=== PATIENT | female | born 1960 | race Caucasian/White ===

== ENCOUNTER 2018-07-14 10:53 | Day surgery (SDC) | payer MEDICARE ==
[~2018-07-14 10:53] MED LIST: Acetaminophen TAB* 325 MG PO ONE; Buffered Lidocaine 0.9% SYRIN* 5 ML/SYR SYRINGE INTRADERM ONE
[2018-07-14] MEDS ORDERED: Acetaminophen TAB* 325 MG ONE (11:51)
[2018-07-14] MEDS ORDERED: Buffered Lidocaine 0.9% SYRIN* 5 ML/SYR SYRINGE ONE (11:51)
[2018-07-14] MEDS ORDERED: Midazolam* 1 MG/ML 2 ML VIAL (2 MG) ONE ×2 (12:16→13:49)
[2018-07-14] MEDS ORDERED: fentaNYL* 50 MCG/ML 2 ML VIAL (100 MCG VIAL) ONE (12:16)
[2018-07-14] MEDS ORDERED: Famotidine IV* 10 MG/ML 2 ML (20 mg) ONE (12:29)
[2018-07-14] MEDS ORDERED: Levalbuterol 0.63MG/3ML NEB* UNIT OF USE INH ONE ×3 (13:03→16:11)
[2018-07-14] MEDS ORDERED: fentaNYL* 50 MCG/ML 2 ML VIAL (100 MCG VIAL) IV PRN (13:06)
[2018-07-14] MEDS ORDERED: DiMENhydriNATE IV* 50 MG/ML VIAL IV PUSH PRN (13:06)
[2018-07-14] MEDS ORDERED: Levalbuterol 0.63MG/3ML NEB* UNIT OF USE INH PRN (13:06)
[2018-07-14] MEDS ORDERED: Ondansetron INJ* 2 MG/ML VIAL IV PRN (13:06)
[2018-07-14] MEDS ORDERED: Naloxone* 0.4 MG/ML 1 ML VIAL IV PRN (13:06)
[2018-07-14] MEDS ORDERED: Propofol* 10 MG/ML 20 ML BTL ONE ×2 (13:37→13:50)
[2018-07-14] MEDS ORDERED: Cisatracurium* 2 MG/ML MDV 5 ML ONE (13:37)
[2018-07-14] MEDS ORDERED: Dexamethasone IV* 4 MG/ML 1 ML (4 MG) ONE (13:37)
[2018-07-14] MEDS ORDERED: Succinylcholine* 20 MG/ML 10 ML VIAL ONE (13:51)
[2018-07-14] MEDS ORDERED: Esmolol* 10 MG/ML 10 ML (100 mg) ONE (13:51)
[2018-07-14] MEDS ORDERED: Levalbuterol HFA INHALER* 1 PUFF MDI ONE (14:59)
[2018-07-14 16:18] VITALS: BP 150/75
--- NOTE | 2018-07-15 06:01 | PRO ---
BRONCHOSCOPY REPORT: DATE OF PROCEDURE: 07/14/18 - [facility] PROCEDURE PERFORMED: Bronchoscopy with endobronchial ultrasound-guided fine needle aspiration of mediastinal and hilar nodes for lung cancer staging. PREPROCEDURAL DIAGNOSIS: Lung cancer. POSTPROCEDURAL DIAGNOSIS: Lung cancer with negative tumor in lymph nodes. ANESTHESIA: General anesthesia. ANESTHESIOLOGIST: Dr. Lopez. PROCEDURE IN DETAIL: Informed consent was obtained from the patient prior to the procedure after all the risks and benefits were thoroughly explained. The patient was intubated with a size 8.5 endotracheal tube prior to the procedure. A flexible Olympus bronchoscope was inserted through the ET tube for airway inspection. All airways were patent. Thick secretions were noted and were suctioned. No endobronchial lesions were noted. Bronchoscope was then withdrawn and EBUS bronchoscope was inserted. L10 was sampled with 3 passes. Rapid onsite evaluation revealed lymphatic tissue. No malignant cells were noted. L4 was then accessed with 2 passes. Rapid onsite evaluation revealed lymphatic tissue with no malignant cells. Station 7 was then accessed with 3 passes. Rapid onsite evaluation revealed lymphatic tissue with no malignant cells. R4 was then accessed with 2 passes. Rapid onsite evaluation revealed lymphatic tissue with no malignant cells. R10 was then accessed with 1 pass. Rapid onsite evaluation revealed lymphatic tissue. No malignant cells were noted. Bronchoscope was then withdrawn and Olympus bronchoscope was reinserted and secretions were suctioned. Minimal bleeding was seen and was suctioned out. The patient tolerated the procedure well. The patient was extubated and seen in Recovery in optimal condition. [id number]/CPS #: [id number] MTDD
== END 2018-07-14 16:30 | disposition home or self-care (01) ==
LOC: OR 10:53
PROVIDERS: ATTEND Internal Medicine
DX: C34.90 Malignant neoplasm of unspecified part of unspecified bronchus or lung (principal); R91.1 Solitary pulmonary nodule; J44.9 Chronic obstructive pulmonary disease, unspecified; F17.210 Nicotine dependence, cigarettes, uncomplicated; R06.83 Snoring; F41.8 Other specified anxiety disorders; I73.9 Peripheral vascular disease, unspecified
CPT/HCPCS: 88172; 88173; 88177; 88305; A9270-GY; J0330; J1100; J2250; J2704; J3010

== ENCOUNTER → 2018-07-15 11:03 | Day surgery (SDC) | payer MEDICARE ==
[~2018-07-15 11:03] MED LIST changes: -Acetaminophen TAB* 325 MG PO ONE; -Buffered Lidocaine 0.9% SYRIN* 5 ML/SYR SYRINGE INTRADERM ONE; +Clopidogrel TAB* 300 MG ONE; +Flumazenil* 0.1 MG/ML 5 ML MDV ONE; +Heparin 2 UNITS/ML IVPREMIX* 1,000 ML IV ONE; +Heparin 2 UNITS/ML IVPREMIX* 2,000 ML IV ONE; +Heparin(*) 1000 UNIT/ML 10 ML VIAL CATH LAB IV ONE; +Iodixanol 320 (CONTRAST) 100 ML SDV ONE; +Iohexol 350 (CONTRAST) 200 ML MDV IV ONE; +LORazepam TAB(*) 1 MG ONE; +Lidocaine 1% INJ* 10 MG/ML 30 ML SDV ONE; +Midazolam* 1 MG/ML 10 ML VIAL (10 MG) ONE; +Naloxone* 0.4 MG/ML 1 ML VIAL ONE; +Ondansetron INJ* 2 MG/ML VIAL ONE; +VERAPAMIL 2.5 MG/ML 2 ML VIAL ** 5 mg/2 ml ONE; +fentaNYL* 50 MCG/ML 2 ML VIAL (100 MCG VIAL) ONE; +fentaNYL* 50 MCG/ML 5 ML VIAL (250 MCG VIAL) ONE; +nitroGLYCERIN DRIP* 25,000 MCG/250 ML BTL ONE
[2018-07-15 11:51] LABS: ABS Basophils 0.1 10^3/ul (0-0.2); ABS Eosinophils 0 10^3/ul (0-0.6); ABS Lymphocytes 0.8 10^3/ul (1.0-4.8); ABS Monocytes 1.3 10^3/ul (0-0.8); ABS Neutrophils 19.9 10^3/ul (1.5-7.7); ABS Nucleated RBC 0 10^3/ul; Eosinophil % 0.1 %; Hematocrit 43 % (35-47); Hemoglobin 14.4 g/dl (12.0-16.0); Lymphocyte % 3.7 %; Mean Corpuscular HGB Conc 33 g/dl (31-36); Mean Corpuscular Hemoglobin 32 pg (27-31); Mean Corpuscular Volume 95 fL (80-97); Mean Platelet Volume 7.5 fL (7.4-10.4); Nucleated Red Blood Cells % 0.1; Platelet Count 229 10^3/ul (150-450); Red Blood Count 4.53 10^6/ul (4.00-5.40); Red Cell Distribution Width 14 % (10.5-15); White Blood Count 22.1 10^3/ul (3.5-10.8)
[2018-07-15 12:02] LABS: INR 0.95 (0.77-1.02)
[2018-07-15 12:16] LABS: EGFR Non-African American 84.6 (>60)
[2018-07-15 18:31] VITALS: BP 141/75
--- NOTE | 2018-07-15 18:50 | PN ---
Progress Note - Progress Note Date of Service: 07/15/18 SOAP: Subjective: No pain. No nausea. 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 Percutaneous Minx closure device successfully deployed at left CF arteriotomy. Plan: 1. Plavix 75 mg PO daily x 6 months. 2. Standard Interventional Radiology follow up will include RN call Thursday, 07/19 and clinic f/u in 1 month with KELLIE.
== END | disposition home or self-care (01) ==
LOC: CHICATH 11:03
PROVIDERS: ATTEND Radiology Diagnostic Radiology
DX: I70.223 Atherosclerosis of native arteries of extremities with rest pain, bilateral legs (principal); I70.261 Atherosclerosis of native arteries of extremities with gangrene, right leg; I70.213 Atherosclerosis of native arteries of extremities with intermittent claudication, bilateral legs; I10 Essential (primary) hypertension; F41.8 Other specified anxiety disorders; Z72.0 Tobacco use; Z79.899 Other long term (current) drug therapy
CPT/HCPCS: 36415; 75736; 76937; 80048; 85025; 85347; 85610; 85730; 99156; 99157; A9270-GY; C1724; C1725; C1760; C1769; C1887; C1894; J1644; J2250; J2310; J2405; J3010

== ENCOUNTER → 2018-11-25 13:54 | Emergency (ER) | payer MEDICARE ==
--- NOTE | 2018-11-25 16:07 | ED ---
Lower Extremity - HPI Summary HPI Summary: Patient is a 57-year-old female who presents emergency department for evaluation of chronic wound to right great toe. Patient states last year she developed osteomyelitis in the right foot and was following with Dr. Kahn for infectious disease. Patient states she is now currently seeing the wound clinic and saw Dr. Dia a few days ago. Patient states she recently finished a course of clindamycin. Patient states she noticed increase drainage from wound and was referred to the ER by Dr. Dia. Patient denies associated symptoms of fever, chills, increased pain to right foot, increased redness. Past medical history of hypertension, GERD, pulmonary nodule, smoking history. Symptoms are [id number] in severity. No current modifying factors. - History of Current Complaint Chief Complaint: EDRashSkinAbscess Stated Complaint: RIGHT FOOT TOE INJURY PER PT Time Seen by Provider: 11/25/18 15:36 Hx Obtained From: Patient Pain Intensity: 5 - Allergies/Home Medications Allergies/Adverse Reactions: Allergies Allergy/AdvReac Type Severity Reaction Status Date / Time doxycycline AdvReac Intermediate GI Upset Verified 11/25/18 14:29 tetracycline AdvReac Intermediate GI Upset Verified 11/25/18 14:29 PMH/Surg Hx/FS Hx/Imm Hx Previously Healthy: Yes Endocrine/Hematology History: Denies: Hx Diabetes Cardiovascular History: Reports: Hx Hypertension - ON MEDICATION FOR, Hx Peripheral Vascular Disease - right leg Denies: Hx Pacemaker/ICD Respiratory History: Reports: Hx Sleep Apnea - newly diagnosed, Other Respiratory Problems/Disorders - very hoarse Denies: Hx Asthma GI History: Reports: Hx Gastroesophageal Reflux Disease, Hx Irritable Bowel Denies: Other GI Disorders History: Denies: Hx Renal Disease Musculoskeletal History: Reports: Hx Arthritis - hands, Hx Bursitis, Hx Tendonitis - arms, Other Musculoskeletal History - RIGHT FOOT DROP FOOT after back surgery Sensory History: Reports: Hx Contacts or Glasses - glasses Denies: Hx Hearing Aid Opthamlomology History: Reports: Hx Contacts or Glasses - glasses Neurological History: Reports: Other Neuro Impairments/Disorders - right foot drop Psychiatric History: Reports: Hx Anxiety - on meds, Hx Depression - ON MEDICATION, Hx Panic Disorder - Cancer History Cancer Type, Location and Year: Lung ca - Surgical History Surgery Procedure, Year, and Place[facility] TUBAL [facility]. TONSILLECTOMY. LEFT KNEE ARTHROSCOPY X 2. GALLBLADER REMOVED. RIGHT FOOT REMOVAL OF PLANTAR WART. RIGHT TOE STRAIGHTENED Hx Anesthesia Reactions: No Infectious Disease History: No Infectious Disease History: Denies: Traveled Outside the [place] in Last 30 Days - Family History Known Family History: Positive: Non-Contributory - Social History Occupation: Unemployed Lives: With Family Alcohol Use: None Substance Use Type: Reports: None Hx Tobacco Use: Yes Smoking Status (MU): Heavy Every Day Tobacco Smoker Type: Cigarettes Amount Used/How Often: pack a day for 49yrs Have You Smoked in the Last Year: Yes Review of Systems Constitutional: Negative Negative: Fever, Chills Gastrointestinal: Negative Negative: Abdominal Pain, Nausea Positive: Other - chronic wound to right foot All Other Systems Reviewed And Are Negative: Yes Physical Exam Triage Information Reviewed: Yes Vital Signs On Initial Exam: Initial Vitals Temp Pulse Resp BP Pulse Ox 97.8 F 73 14 130/72 95 11/25/18 14:17 11/25/18 14:17 11/25/18 14:17 11/25/18 14:17 11/25/18 14:17 Vital Signs Reviewed: Yes Appearance: Positive: Well-Appearing - Pt. sitting up in bed in NAD. present. Skin: Positive: Warm, Dry Head/Face: Positive: Normal Head/Face Inspection Eyes: Positive: Normal, EOMI Neck: Positive: Supple Musculoskeletal: Positive: Other - Small, <1cm, ulceration noted to the medial aspect of right great toe of foot. No drainage. No surrounding erythema, edema, pain. Neurological: Positive: Normal, CN Intact II-III Psychiatric: Positive: Affect/Mood Appropriate Diagnostics - Vital Signs Vital Signs Temp Pulse Resp BP Pulse Ox 11/25/18 14:17 97.8 F 73 14 130/72 95 - Laboratory Result Diagrams: 11/25/18 16:10 11/25/18 16:10 Lab Statement: Any lab studies that have been ordered have been reviewed, and results considered in the medical decision making process. Lower Extremity Course/Dx - Course Course Of Treatment: Patient presenting for evaluation of chronic wound to right foot. Patient noticed a small increase in drainage. She is afebrile. On exam no definite signs of an infection. Labs and x-ray obtained. X-ray shows chronic changes without acute findings, reading per radiology. Blood work shows elevated WBC of 14,000 and CRP of 34. Wound culture obtained by wound clinic this week and is negative for close. Case discussed with Dr. Kahn who recommends outpatient follow-up at his office. He does not recommend antibiotics or not wound does not appear infected. Patient is agreeable with this plan. Advised to continue wound care. To call Dr. Kahn' s office tomorrow for a close follow-up appointment. Return to the ER symptoms change or worsen. - Diagnoses Differential Diagnosis/HQI/PQRI: Positive: Gout, Infection, Osteomyelitis Provider Diagnoses: Ulcer Discharge - Sign-Out/Discharge Documenting (check all that apply): Patient Departure Patient Received Moderate/Deep Sedation with Procedure: No - Discharge Plan Condition: Good Disposition: HOME Patient Education Materials: Acute Wound Care (ED) Referrals: Milton Cagle MD [Primary Care Provider] - Alden HUSTON,Emory Henry [Medical Doctor] - Additional Instructions: Call Dr. Ruano's office tomorrow for a close follow up appointment Continue wound care Return to ER for increased pain, fever, drainage, surrounding redness, or if concerned - Billing Disposition and Condition Condition: GOOD Disposition: Home
[2018-11-25 16:20] LABS: ABS Basophils 0 10^3/ul (0-0.2); ABS Eosinophils 0.2 10^3/ul (0-0.6); ABS Lymphocytes 0.9 10^3/ul (1.0-4.8); ABS Monocytes 0.7 10^3/ul (0-0.8); ABS Neutrophils 12.1 10^3/ul (1.5-7.7); ABS Nucleated RBC 0 10^3/ul; Eosinophil % 1.8 %; Hematocrit 42 % (33-41); Hemoglobin 14.1 g/dL (12.0-16.0); Lymphocyte % 6.5 %; Mean Corpuscular HGB Conc 33 g/dL (31-36); Mean Corpuscular Hemoglobin 32 pg (27-31); Mean Corpuscular Volume 97 fL (80-97); Mean Platelet Volume 8.1 fL (7.4-10.4); Nucleated Red Blood Cells % 0.1; Platelet Count 233 10^3/uL (150-450); Red Blood Count 4.36 10^6 /uL (3.70-4.87); Red Cell Distribution Width 15 % (10.5-15)
[2018-11-25 16:27] LABS: Albumin 3.7 g/dL (3.2-5.2); Calcium 9.9 mg/dL (8.6-10.3); Potassium 4.3 mmol/L (3.5-5.0); Total Bilirubin 0.3 mg/dL (0.2-1.0)
[2018-11-25 16:33] LABS: Albumin/Globulin Ratio 1.1 (1-3); BUN/Creatinine Ratio 16.9 (8-20); C Reactive Protein 34.35 mg/L (<8.01); EGFR African American 102.3 (>60); EGFR Non-African American 84.6 (>60); Globulin 3.4 g/dL (2-4); Total Protein 7.1 g/dL (6.4-8.9)
[2018-11-25 17:15] VITALS: BP 124/74
== END | disposition home or self-care (01) ==
LOC: ED 13:54
DX: L97.516 Non-pressure chronic ulcer of other part of right foot with bone involvement without evidence of necrosis (principal); I10 Essential (primary) hypertension; K21.9 Gastro-esophageal reflux disease without esophagitis; F17.210 Nicotine dependence, cigarettes, uncomplicated
CPT/HCPCS: 36415; 80053; 83605; 85025; 86140; 87040; 99282

== ENCOUNTER 2019-01-30 15:35 | Inpatient (IN) | payer MEDICARE ==
--- OUTSIDE RECORDS SUMMARY | 2019-01-30 15:53 | XMS REPORT | Continuity of Care Document ---
:1960 External Reference #:[id number] Author Name Jossie Bliss Care Team Providers Name Role Phone Milton Cagle MD Primary Care Physician Unavailable Payers Date Identification Numbers Payment Provider Subscriber Policy Number: [id number] Medicare Mayda Almendarez PayID: [id number] [facility] [address] [place] [address] Problems Active Problems Provider Date Atherosclerosis of arteries of the Alcides Ponce M.D. Onset: 05/06/2018 extremities Intermittent claudication due to Alcides Ponce M.D. Onset: 05/06/2018 atherosclerosis of [place] artery of limb Family History Date Family Member(s) Observation Comments General Diabetes General Hypertension General Cancer Father due to Complications from a () fall Father Diabetes Father Hypertension Mother due to Aspiration () Mother Hypertension Mother Chronic Obstructive Pulmonary Disease (COPD) Mother Smoker Siblings 6 3 brothers and 3 sisters Social History Type Date Description Comments Sex Unknown Marital Status Lives With Occupation Disabled Tobacco Use Start: Unknown current cigarette Began smoking at smoker age 8 Smoking Status Reviewed: 01/27/19 current cigarette Began smoking at smoker age 8 ETOH Use Denies alcohol use Tobacco Use Start: Unknown Patient is a current 1 ppd x 49 yrs smoker, smokes every day Recreational Drug Use Current Drug User Recreational Drug Use Regularly uses Marijuana Exercise Type/Frequency Exercises rarely Allergies, Adverse Reactions, Alerts Active Allergies Reaction Severity Comments Date Tetracycline abdominal pain 05/14/2016 Doxycycline abdominal pain 05/07/2018 Medications Active Medications SIG Qnty Indications Ordering Provider Date Rifampin Take 2 tablets 60caps Mattie Adameck 01/27/2019 300mg by mouth once Reyna, MANAGER INPATIENT Capsules daily Sulfamethoxazole/Tri Take 1 tablet by 30tabs L97.512 Mattie Michael methoprim DS mouth once a day DIVINE Reyna 800-160mg Tablets Gabapentin 1 by mouth two Alcides Ponce, 05/06/2018 300mg times a day M.D. Capsules Ranitidine HCL take one tablet Unknown 150mg by mouth twice a Tablets day Fluoxetine HCL 3 by mouth every Unknown 20mg day Capsules Olanzapine 1 by mouth every Unknown 10mg day Tablets Aspirin Adult Low 1 by mouth every Unknown Dose day 81mg Tablets DR Mayer as needed Unknown 1mg Oxycodone HCL ER take one tab by Unknown 10mg mouth three Tab ER 12H Abuse-Det times a day Lisinopril 1 by mouth every Unknown 10mg day Tablets Protonix 1 tab by mouth Unknown 40mg Packet every day. [place] Carbonate ER 1 tabs once Unknown every other day 300mg Tablets ER (weaning off per Dr Trejo) History Medications Sulfamethoxazole/Trimethoprim DS take 1 14tabs L97.512 Emory Henry 2018 - 800-160mg tablet by Karol, 12/15/2018 Tablets mouth once M.D. a day Sulfamethoxazole/Trimethoprim DS Take 1 10tabs Alcides Blanton 07/28/2018 - 800-160mg tablet by Oliver Ponce 11/29/2018 Tablets mouth bid for 5 days. Plavix 75mg 1 by mouth 90tabs Alcides Blanton 07/15/2018 - Tablets every day Oliver Ponce 01/26/2019 Nicoderm CQ topical 28units F17.210 Damari 06/15/2018 - 21mg/24HR Patches 24HR every MD Bhaskar 11/29/2018 morning Nicotine Polacrilex 1 by mouth 60units F17.210 Damari 06/15/2018 - 4mg Lozenges every 4 MD Bhaskar 11/29/2018 hours as needed Ceftriaxone Sodium iv every Emory DAlla 05/11/2018 - 1gm Solution Rec day x 42 Karol, 06/21/2018 days at [facility] [place] Clonidine HCL apply one Unknown - 0.1mg/24HR Patches Weekly patch once 03/05/2018 per week Effexor XR Unknown - 225 04/05/2018 Prazosin HCL twice daily Unknown - 2mg Capsules 07/06/2018 Gabapentin Unknown - 300mg/6ML Solution 04/05/2018 Detrol LA 4mg 1 by mouth Unknown - Caps ER 24HR every day 07/06/2018 Immunizations CPT Code Status Date Vaccine Lot # [id number] Given 05/26/2018 Influenza Virus Vaccine, Quadrivalent, Split, [id number] Preservative Free Vital Signs Date Vital Result Comment 01/27/2019 1:07pm Height 66 inches 5'6" Weight 204.00 lb Heart Rate 72 /min BP Systolic Sitting 110 mmHg BP Diastolic Sitting 64 mmHg Respiratory Rate 14 /min Body Temperature 97.4 F BMI (Body Mass Index) 32.9 kg/m2 01/25/2019 1:36pm Height 66 inches 5'6" Heart Rate 82 /min BP Systolic 124 mmHg BP Diastolic 70 mmHg Respiratory Rate 16 /min Body Temperature 98.3 F Pain Level 6 01/06/2019 3:26pm Height 66 inches 5'6" Weight 203.00 lb Heart Rate 92 /min BP Systolic Sitting 114 mmHg BP Diastolic Sitting 70 mmHg Respiratory Rate 14 /min Body Temperature 98.5 F Pain Level 7 BMI (Body Mass Index) 32.8 kg/m2 12/13/2018 2:04pm Height 66 inches 5'6" Weight 210.00 lb BP Systolic 128 mmHg BP Diastolic 92 mmHg Respiratory Rate 17 /min Body Temperature 97.1 F Pain Level 7 BMI (Body Mass Index) 33.9 kg/m2 11/30/2018 8:35am Height 66 inches 5'6" Weight 210.00 lb Heart Rate 84 /min BP Systolic Sitting 100 mmHg BP Diastolic Sitting 62 mmHg Respiratory Rate 14 /min Body Temperature 97.5 F BMI (Body Mass Index) 33.9 kg/m2 07/28/2018 10:26am Height 66 inches 5'6" Weight 218.00 lb Heart Rate 102 /min BP Systolic Sitting 126 mmHg BP Diastolic Sitting 84 mmHg Respiratory Rate 18 /min Body Temperature 97.9 F oral BMI (Body Mass Index) 35.2 kg/m2 07/07/2018 11:20am Height 66 inches 5'6" per pt Weight 221.00 lb Heart Rate 69 /min BP Systolic 122 mmHg BP Diastolic 58 mmHg Respiratory Rate 18 /min Pain Level 0 O2 % BldC Oximetry 97 % BMI (Body Mass Index) 35.7 kg/m2 07/01/2018 1:33pm Height 66 inches 5'6" per pt Weight 215.00 lb Heart Rate 92 /min BP Systolic Sitting 120 mmHg BP Diastolic Sitting 62 mmHg Respiratory Rate 14 /min Body Temperature 97.6 F BMI (Body Mass Index) 34.7 kg/m2 06/15/2018 9:35am Height 66 inches 5'6" per pt Weight 220.00 lb Heart Rate 88 /min BP Systolic Sitting 124 mmHg BP Diastolic Sitting 84 mmHg Respiratory Rate 14 /min O2 % BldC Oximetry 98 % BMI (Body Mass Index) 35.5 kg/m2 Neck Circumference in inches 16.25 06/09/2018 8:49am Height 66 inches 5'6" per pt Weight 222.00 lb Heart Rate 84 /min BP Systolic Sitting 118 mmHg BP Diastolic Sitting 64 mmHg Respiratory Rate 14 /min Body Temperature 96.9 F BMI (Body Mass Index) 35.8 kg/m2 05/26/2018 9:56am Height 66 inches 5'6" per pt Weight 218.12 lb Heart Rate 72 /min BP Systolic Sitting 120 mmHg BP Diastolic Sitting 64 mmHg Respiratory Rate 14 /min Body Temperature 98.2 F BMI (Body Mass Index) 35.2 kg/m2 05/07/2018 11:14am Height 66 inches 5'6" per pt Weight 213.38 lb Heart Rate 84 /min BP Systolic Sitting 128 mmHg BP Diastolic Sitting 62 mmHg Respiratory Rate 14 /min Body Temperature 97.9 F BMI (Body Mass Index) 34.4 kg/m2 05/06/2018 7:57am Height 62.5 inches 5'2.50" Weight 205.00 lb Heart Rate 74 /min BP Systolic Sitting 104 mmHg Lue BP Diastolic Sitting 60 mmHg Lue Respiratory Rate 16 /min BMI (Body Mass Index) 36.9 kg/m2 05/14/2016 1:13pm Height 62.5 inches 5'2.50" Weight 207.00 lb Heart Rate 60 /min BP Systolic 102 mmHg BP Diastolic 70 mmHg Pain Level 8 BMI (Body Mass Index) 37.3 kg/m2 Results Test Date Facility Test Result H/L Range Note Laboratory test 01/20/2019 [facility] C Reactive 17.62 mg/L High <8.[address] [place] [address] [phone] Comp Metabolic 01/20/2019 [facility] Sodium 135 mmol/L N 135- 145 Panel [address] [place] [address] [phone] Potassium 4.7 mmol/L N 3.5-5.0 Chloride 105 mmol/L N 101-111 Co2 Carbon Dioxide 25 mmol/L N 22-32 Anion Gap 5 mmol/L N 2-11 Glucose 94 mg/dL N 70-100 Blood Urea Nitrogen 23 mg/dL N 6-24 Creatinine 0.95 mg/dL N 0.51-0.95 BUN/Creatinine Ratio 24.2 High 8-20 Calcium 10.1 mg/dL N 8.6-10.3 Total Protein 7.2 g/dL N 6.4-8.9 Albumin 4.0 g/dL N 3.2-5.2 Globulin 3.2 g/dL N 2-4 Albumin/Globulin Ratio 1.3 N 1-3 Total Bilirubin 0.40 mg/dL N 0.2-1.0 Alkaline Phosphatase 87 U/L N 34-104 Alt 23 U/L N 7-52 Ast 17 U/L N 13-39 Egfr Non- 60.2 >60 Egfr 72.9 >60 1 Comp Metabolic Panel 12/17/2018 [facility] Sodium 134 mmol/L Low 135-145 [address] [place] [address] [phone] Chloride 102 mmol/L N 101-111 Co2 Carbon Dioxide 26 mmol/L N 22-32 Glucose 90 mg/dL N 70-100 Blood Urea Nitrogen 31 mg/dL High 6-24 Creatinine 1.27 mg/dL High 0.51-0.95 BUN/Creatinine Ratio 24.4 High 8-20 Calcium 10.9 mg/dL High 8.6-10.3 Total Protein 7.7 g/dL N 6.4-8.9 Albumin 4.2 g/dL N 3.2-5.2 Globulin 3.5 g/dL N 2-4 Albumin/Globulin Ratio 1.2 N 1-3 Total Bilirubin 0.30 mg/dL N 0.2-1.0 Alkaline Phosphatase 88 U/L N 34-104 Alt 20 U/L N 7-52 Ast 18 U/L N 13-39 Egfr Non- 43.2 >60 Egfr 52.3 >60 2 Potassium 5.2 mmol/L High 3.5-5.0 Anion Gap 6 mmol/L N 2-11 Laboratory test 12/17/2018 [facility] C Reactive 22.41 mg/L High <8.[address] [place] [address] [phone] Basic Metabolic 07/15/2018 [facility] Sodium 137 mmol/L N 135- [address] [place] [address] [phone] Potassium 4.1 mmol/L N 3.5-5.0 Chloride 106 mmol/L N 101-111 Co2 Carbon Dioxide 26 mmol/L N 22-32 Anion Gap 5 mmol/L N 2-11 Glucose 106 mg/dL High 70-100 Blood Urea Nitrogen 12 mg/dL N 6-24 Creatinine 0.71 mg/dL N 0.51-0.95 BUN/Creatinine Ratio 16.9 N 8-20 Calcium 9.7 mg/dL N 8.6-10.3 Egfr Non- 84.6 >60 Egfr 102.3 >60 3 CBC Auto 07/15/2018 [facility] White Blood 22.1 10^3/uL High 3.5-10.[address] [place] [address] [phone] Red Blood Count 4.53 10^6/uL N 4.00-5.40 Hemoglobin 14.4 g/dL N 12.0-16.0 Hematocrit 43 % N 35-47 Mean Corpuscular Volume 95 fL N 80-97 Mean Corpuscular Hemoglobin 32 pg High 27-31 Mean Corpuscular HGB Conc 33 g/dL N 31-36 Red Cell Distribution Width 14 % N 10.5-15 Platelet Count 229 10^3/uL N 150-450 Mean Platelet Volume 7.5 fL N 7.4-10.4 Abs Neutrophils 19.9 10^3/uL High 1.5-7.7 Abs Lymphocytes 0.8 10^3/uL Low 1.0-4.8 Abs Monocytes 1.3 10^3/uL High 0-0.8 Abs Eosinophils 0 10^3/uL N 0-0.6 Abs Basophils 0.1 10^3/uL N 0-0.2 Abs Nucleated RBC 0 10^3/uL Granulocyte % 90.2 % Lymphocyte % 3.7 % Monocyte % 5.8 % Eosinophil % 0.1 % Basophil % 0.2 % Nucleated Red Blood Cells % 0.1 Inr/Protime 07/15/2018 [facility] Inr 0.95 N 0.77-1.[address] [place] [address] [phone] Laboratory test 07/15/2018 [facility] Partial Thrombo 30.1 N 26.0-36.[address] [place] [address] [phone] Laboratory test 07/15/2018 [facility] Poc Activated 213 [address] [place] [address] [phone] Laboratory test 07/15/2018 [facility] Poc Activated 213 [address] [place] [address] [phone] Laboratory test 07/14/2018 [facility] Cytology Non-Waste Baler SEE RESULT [address] [place] [address] [phone] Laboratory test 06/28/2018 [facility] Cytology Non-Waste Baler SEE RESULT [address] [place] [address] [phone] Lung Cancer 06/28/2018 [facility] LNGPR TNP () 8 Targeted Gene [address] [place] [address] [phone] Laboratory test 06/28/2018 [facility] Cytology Non-Waste Baler SEE RESULT [address] [place] [address] [phone] Lung Cancer 06/28/2018 [facility] LNGPR TNP () 10 Targeted Gene [address] [place] [address] [phone] Laboratory test 06/28/2018 [facility] Cytology Non-Waste Baler SEE RESULT [address] [place] [address] [phone] Platelet Count 06/28/2018 [facility] Platelet Count 223 N 150- [address] 10^3/[place] [address] [phone] Mean Platelet Volume 7.3 fL Low 7.4-10.4 Inr/Protime 06/28/2018 [facility] Inr 0.89 N 0.77-1.[address] [place], [place] [address] [phone] Laboratory test 06/28/2018 [facility] Partial 31.0 seconds N 26.0-36.[address] [place] [address] PTT [phone] Basic Metabolic 06/24/2018 [facility] Sodium 140 mmol/L N 135- [address] [place] [address] [phone] Potassium 4.0 mmol/L N 3.5-5.0 Chloride 102 mmol/L N 101-111 Co2 Carbon Dioxide 30 mmol/L N 22-32 Anion Gap 8 mmol/L N 2-11 Glucose 96 mg/dL N 70-100 Blood Urea Nitrogen 10 mg/dL N 6-24 Creatinine 0.77 mg/dL N 0.51-0.95 BUN/Creatinine Ratio 13.0 N 8-20 Calcium 9.8 mg/dL N 8.6-10.3 Egfr Non- 77.0 >60 Egfr 93.2 >60 12 Laboratory test 06/21/2018 [facility] Cytology SEE RESULT [address] Non-Waste Baler BELOW [place], [place] [id number] [phone] Platelet Count 06/21/2018 [facility] Platelet Count 220 10^3/uL N 150-[address] 0 [place], [place] [id number] [phone] Mean Platelet Volume 7.8 fL N 7.4-10.4 Inr/Protime 06/21/2018 [facility] Inr 0.92 N 0.77-1.[address] [place], [place] [id number] [phone] Laboratory test 06/21/2018 [facility] Partial 32.5 N 26.0- 36.[address] [address] Time PTT [phone] CBC Auto Diff 06/15/2018 [facility] White Blood 15.0 High 3.5- 10.[address] Count 10^3/[place] [address] [phone] Red Blood Count 4.75 10^6/uL N 4.00-5.40 Hemoglobin 14.8 g/dL N 12.0-16.0 Hematocrit 45 % N 35-47 Mean Corpuscular Volume 95 fL N 80-97 Mean Corpuscular Hemoglobin 31 pg N 27-31 Mean Corpuscular HGB Conc 33 g/dL N 31-36 Red Cell Distribution Width 16 % High 10.5-15 Platelet Count 226 10^3/uL N 150-450 Mean Platelet Volume 7.6 um3 N 7.4-10.4 Abs Neutrophils 12.7 10^3/uL High 1.5-7.7 Abs Lymphocytes 1.0 10^3/uL N 1.0-4.8 Abs Monocytes 0.9 10^3/uL High 0-0.8 Abs Eosinophils 0.3 10^3/uL N 0-0.6 Abs Basophils 0.1 10^3/uL N 0-0.2 Abs Nucleated RBC 0 10^3/uL Granulocyte % 84.7 % High 38-83 Lymphocyte % 6.4 % Low 25-47 Monocyte % 6.3 % N 0-7 Eosinophil % 1.8 % N 0-6 Basophil % 0.8 % N 0-2 Nucleated Red Blood Cells % 0.1 Comp Metabolic Panel 06/15/2018 [facility] Sodium 137 mmol/L N 135-[address] [place] [address] [phone] Potassium 4.6 mmol/L N 3.5-5.0 Chloride 104 mmol/L N 101-111 Co2 Carbon Dioxide 29 mmol/L N 22-32 Anion Gap 4 mmol/L N 2-11 Glucose 90 mg/dL N 70-100 Blood Urea Nitrogen 9 mg/dL N 6-24 Creatinine 0.63 mg/dL N 0.51-0.95 BUN/Creatinine Ratio 14.3 N 8-20 Calcium 9.6 mg/dL N 8.6-10.3 Total Protein 7.5 g/dL N 6.4-8.9 Albumin 4.0 g/dL N 3.2-5.2 Globulin 3.5 g/dL N 2-4 Albumin/Globulin Ratio 1.1 N 1-3 Total Bilirubin 0.50 mg/dL N 0.2-1.0 Alkaline Phosphatase 104 U/L N 34-104 Alt 19 U/L N 7-52 Ast 22 U/L N 13-39 Egfr Non- 97.1 >60 Egfr 117.4 >60 14 Laboratory test 06/15/2018 [facility] C Reactive 15.00 mg/L High <8.[address] [place] [address] [phone] Laboratory test 06/14/2018 [facility] Point of Care 97 mg/dL N 70-[address] [place] [address] [phone] CBC Auto Diff 06/08/2018 [facility] White Blood 9.6 N 3.5- 10.[address] Count 10^3/[place] [address] [phone] Red Blood Count 4.37 10^6/uL N 4.00-5.40 Hemoglobin 13.9 g/dL N 12.0-16.0 Hematocrit 41 % N 35-47 Mean Corpuscular Volume 95 fL N 80-97 Mean Corpuscular Hemoglobin 32 pg High 27-31 Mean Corpuscular HGB Conc 34 g/dL N 31-36 Red Cell Distribution Width 16 % High 10.5-15 Platelet Count 216 10^3/uL N 150-450 Mean Platelet Volume 8.2 um3 N 7.4-10.4 Abs Neutrophils 7.8 10^3/uL High 1.5-7.7 Abs Lymphocytes 0.8 10^3/uL Low 1.0-4.8 Abs Monocytes 0.7 10^3/uL N 0-0.8 Abs Eosinophils 0.2 10^3/uL N 0-0.6 Abs Basophils 0.1 10^3/uL N 0-0.2 Abs Nucleated RBC 0 10^3/uL Granulocyte % 81.5 % N 38-83 Lymphocyte % 8.3 % Low 25-47 Monocyte % 7.2 % High 0-7 Eosinophil % 2.4 % N 0-6 Basophil % 0.6 % N 0-2 Nucleated Red Blood Cells % 0 Comp Metabolic Panel 06/08/2018 [facility] Sodium 139 mmol/L N 135-[address] [place] [address] [phone] Potassium 4.2 mmol/L N 3.5-5.0 Chloride 105 mmol/L N 101-111 Co2 Carbon Dioxide 30 mmol/L N 22-32 Anion Gap 4 mmol/L N 2-11 Glucose 84 mg/dL N 70-100 Blood Urea Nitrogen 13 mg/dL N 6-24 Creatinine 0.67 mg/dL N 0.51-0.95 BUN/Creatinine Ratio 19.4 N 8-20 Calcium 9.2 mg/dL N 8.6-10.3 Total Protein 7.0 g/dL N 6.4-8.9 Albumin 3.7 g/dL N 3.2-5.2 Globulin 3.3 g/dL N 2-4 Albumin/Globulin Ratio 1.1 N 1-3 Total Bilirubin 0.40 mg/dL N 0.2-1.0 Alkaline Phosphatase 88 U/L N 34-104 Alt 12 U/L N 7-52 Ast 13 U/L N 13-39 Egfr Non- 90.4 >60 Egfr 109.4 >60 16 Laboratory test 06/08/2018 [facility] C Reactive 15.99 mg/L High <8.[address] [place] [address] [phone] CBC Auto Diff 06/01/2018 [facility] White Blood 9.4 N 3.5- 10.[address] Count 10^3/[place] [address] [phone] Red Blood Count 4.38 10^6/uL N 4.00-5.40 Hemoglobin 13.9 g/dL N 12.0-16.0 Hematocrit 42 % N 35-47 Mean Corpuscular Volume 95 fL N 80-97 Mean Corpuscular Hemoglobin 32 pg High 27-31 Mean Corpuscular HGB Conc 34 g/dL N 31-36 Red Cell Distribution Width 16 % High 10.5-15 Platelet Count 219 10^3/uL N 150-450 Mean Platelet Volume 8.0 um3 N 7.4-10.4 Abs Neutrophils 7.4 10^3/uL N 1.5-7.7 Abs Lymphocytes 0.9 10^3/uL Low 1.0-4.8 Abs Monocytes 0.7 10^3/uL N 0-0.8 Abs Eosinophils 0.3 10^3/uL N 0-0.6 Abs Basophils 0.1 10^3/uL N 0-0.2 Abs Nucleated RBC 0 10^3/uL Granulocyte % 79.3 % N 38-83 Lymphocyte % 9.6 % Low 25-47 Monocyte % 7.3 % High 0-7 Eosinophil % 3.1 % N 0-6 Basophil % 0.7 % N 0-2 Nucleated Red Blood Cells % 0.1 Comp Metabolic Panel 06/01/2018 [facility] Sodium 139 mmol/L N 135-145 [address] [place] [address] [phone] Potassium 4.2 mmol/L N 3.5-5.0 Chloride 105 mmol/L N 101-111 Co2 Carbon Dioxide 30 mmol/L N 22-32 Anion Gap 4 mmol/L N 2-11 Glucose 82 mg/dL N 70-100 Blood Urea Nitrogen 10 mg/dL N 6-24 Creatinine 0.64 mg/dL N 0.51-0.95 BUN/Creatinine Ratio 15.6 N 8-20 Calcium 9.3 mg/dL N 8.6-10.3 Total Protein 6.7 g/dL N 6.4-8.9 Albumin 3.7 g/dL N 3.2-5.2 Globulin 3.0 g/dL N 2-4 Albumin/Globulin Ratio 1.2 N 1-3 Total Bilirubin 0.40 mg/dL N 0.2-1.0 Alkaline Phosphatase 84 U/L N 34-104 Alt 12 U/L N 7-52 Ast 15 U/L N 13-39 Egfr Non- 95.3 >60 Egfr 115.3 >60 17 Laboratory test 06/01/2018 [facility] C Reactive 14.61 mg/L High <8.01 finding [address] [place] [address] [phone] Laboratory test 05/25/2018 [facility] C Reactive 22.05 mg/L High <8.01 finding [address] [place] [address] [phone] Comp Metabolic 05/25/2018 [facility] Sodium 138 mmol/L N 135- 145 Panel [address] [place] [address] [phone] Potassium 4.3 mmol/L N 3.5-5.0 Chloride 105 mmol/L N 101-111 Co2 Carbon Dioxide 29 mmol/L N 22-32 Anion Gap 4 mmol/L N 2-11 Glucose 92 mg/dL N 70-100 Blood Urea Nitrogen 15 mg/dL N 6-24 Creatinine 0.71 mg/dL N 0.51-0.95 BUN/Creatinine Ratio 21.1 High 8-20 Calcium 9.4 mg/dL N 8.6-10.3 Total Protein 6.9 g/dL N 6.4-8.9 Albumin 3.7 g/dL N 3.2-5.2 Globulin 3.2 g/dL N 2-4 Albumin/Globulin Ratio 1.2 N 1-3 Total Bilirubin 0.40 mg/dL N 0.2-1.0 Alkaline Phosphatase 90 U/L N 34-104 Alt 12 U/L N 7-52 Ast 13 U/L N 13-39 Egfr Non- 84.6 >60 Egfr 102.3 >60 18 CBC Auto Diff 05/25/2018 [facility] White Blood 10.6 10^3/uL N 3.5-10.[address] [place] [address] [phone] Red Blood Count 4.37 10^6/uL N 4.00-5.40 Hemoglobin 13.8 g/dL N 12.0-16.0 Hematocrit 41 % N 35-47 Mean Corpuscular Volume 94 fL N 80-97 Mean Corpuscular Hemoglobin 32 pg High 27-31 Mean Corpuscular HGB Conc 34 g/dL N 31-36 Red Cell Distribution Width 16 % High 10.5-15 Platelet Count 220 10^3/uL N 150-450 Mean Platelet Volume 7.9 um3 N 7.4-10.4 Abs Neutrophils 8.8 10^3/uL High 1.5-7.7 Abs Lymphocytes 0.8 10^3/uL Low 1.0-4.8 Abs Monocytes 0.7 10^3/uL N 0-0.8 Abs Eosinophils 0.2 10^3/uL N 0-0.6 Abs Basophils 0.1 10^3/uL N 0-0.2 Abs Nucleated RBC 0 10^3/uL Granulocyte % 82.7 % N 38-83 Lymphocyte % 7.9 % Low 25-47 Monocyte % 6.6 % N 0-7 Eosinophil % 2.3 % N 0-6 Basophil % 0.5 % N 0-2 Nucleated Red Blood Cells % 0.2 CBC Auto Diff 05/18/2018 [facility] White Blood 9.8 10^3/uL N 3.5-10.[address] [place] [address] [phone] Red Blood Count 4.47 10^6/uL N 4.00-5.40 Hemoglobin 14.1 g/dL N 12.0-16.0 Hematocrit 42 % N 35-47 Mean Corpuscular Volume 94 fL N 80-97 Mean Corpuscular Hemoglobin 32 pg High 27-31 Mean Corpuscular HGB Conc 34 g/dL N 31-36 Red Cell Distribution Width 16 % High 10.5-15 Platelet Count 199 10^3/uL N 150-450 Mean Platelet Volume 7.9 um3 N 7.4-10.4 Abs Neutrophils 8.1 10^3/uL High 1.5-7.7 Abs Lymphocytes 1.0 10^3/uL N 1.0-4.8 Abs Monocytes 0.5 10^3/uL N 0-0.8 Abs Eosinophils 0.2 10^3/uL N 0-0.6 Abs Basophils 0.1 10^3/uL N 0-0.2 Abs Nucleated RBC 0 10^3/uL Granulocyte % 82.5 % N 38-83 Lymphocyte % 9.9 % Low 25-47 Monocyte % 4.9 % N 0-7 Eosinophil % 2.1 % N 0-6 Basophil % 0.6 % N 0-2 Nucleated Red Blood Cells % 0 Laboratory test 05/18/2018 [facility] C Reactive 16.97 mg/L High <8.[address] [place] [address] [phone] Comp Metabolic 05/18/2018 [facility] Sodium 138 mmol/L N 135- [address] [place] [address] [phone] Potassium 3.8 mmol/L N 3.5-5.0 Chloride 105 mmol/L N 101-111 Co2 Carbon Dioxide 28 mmol/L N 22-32 Anion Gap 5 mmol/L N 2-11 Glucose 132 mg/dL High 70-100 Blood Urea Nitrogen 10 mg/dL N 6-24 Creatinine 0.64 mg/dL N 0.51-0.95 BUN/Creatinine Ratio 15.6 N 8-20 Calcium 9.4 mg/dL N 8.6-10.3 Total Protein 6.9 g/dL N 6.4-8.9 Albumin 3.7 g/dL N 3.2-5.2 Globulin 3.2 g/dL N 2-4 Albumin/Globulin Ratio 1.2 N 1-3 Total Bilirubin 0.40 mg/dL N 0.2-1.0 Alkaline Phosphatase 88 U/L N 34-104 Alt 19 U/L N 7-52 Ast 17 U/L N 13-39 Egfr Non- 95.3 >60 Egfr 115.3 >60 19 Laboratory test 05/11/2018 [facility] C Reactive 14.31 mg/L High <8.[address] [place] [address] [phone] Comp Metabolic 05/11/2018 [facility] Sodium 138 mmol/L N 135- [address] [place] [address] [phone] Potassium 4.4 mmol/L N 3.5-5.0 Chloride 105 mmol/L N 101-111 Co2 Carbon Dioxide 29 mmol/L N 22-32 Anion Gap 4 mmol/L N 2-11 Glucose 90 mg/dL N 70-100 Blood Urea Nitrogen 12 mg/dL N 6-24 Creatinine 0.66 mg/dL N 0.51-0.95 BUN/Creatinine Ratio 18.2 N 8-20 Calcium 9.4 mg/dL N 8.6-10.3 Total Protein 6.7 g/dL N 6.4-8.9 Albumin 3.6 g/dL N 3.2-5.2 Globulin 3.1 g/dL N 2-4 Albumin/Globulin Ratio 1.2 N 1-3 Total Bilirubin 0.30 mg/dL N 0.2-1.0 Alkaline Phosphatase 79 U/L N 34-104 Alt 16 U/L N 7-52 Ast 17 U/L N 13-39 Egfr Non- 92.0 >60 Egfr 111.3 >60 20 CBC Auto Diff 05/11/2018 [facility] White Blood 10.0 10^3/uL N 3.5-10.[address] [place] [address] [phone] Red Blood Count 4.41 10^6/uL N 4.00-5.40 Hemoglobin 14.0 g/dL N 12.0-16.0 Hematocrit 41 % N 35-47 Mean Corpuscular Volume 93 fL N 80-97 Mean Corpuscular Hemoglobin 32 pg High 27-31 Mean Corpuscular HGB Conc 34 g/dL N 31-36 Red Cell Distribution Width 15 % N 10.5-15 Platelet Count 211 10^3/uL N 150-450 Mean Platelet Volume 7.6 um3 N 7.4-10.4 Abs Neutrophils 8.0 10^3/uL High 1.5-7.7 Abs Lymphocytes 1.1 10^3/uL N 1.0-4.8 Abs Monocytes 0.6 10^3/uL N 0-0.8 Abs Eosinophils 0.3 10^3/uL N 0-0.6 Abs Basophils 0.1 10^3/uL N 0-0.2 Abs Nucleated RBC 0 10^3/uL Granulocyte % 79.8 % N 38-83 Lymphocyte % 11.2 % Low 25-47 Monocyte % 5.7 % N 0-7 Eosinophil % 2.5 % N 0-6 Basophil % 0.8 % N 0-2 Nucleated Red Blood Cells % 0.1 1 Because ethnic data is not always readily available, this report includes an eGFR for both -Americans and non- Americans. The National Kidney Disease Education Program (NKDEP) does not endorse the use of the MDRD equation for patients that are not between the ages of 18 and 70, are , have extremes of body size, muscle mass, or nutritional status, or are non- or non-. According to the [employer], irrespective of diagnosis, the stage of the disease is based on the level of kidney function: Stage Description GFR(mL/min/1.73 m(2)) 1 Kidney damage with normal or decreased GFR 90 2 Kidney damage with mild decrease in GFR 60-89 3 Moderate decrease in GFR 30-59 4 Severe decrease in GFR 15-29 5 Kidney failure <15 (or dialysis) 2 Because ethnic data is not always readily available, this report includes an eGFR for both -Americans and non- Americans. The National Kidney Disease Education Program (NKDEP) does not endorse the use of the MDRD equation for patients that are not between the ages of 18 and 70, are , have extremes of body size, muscle mass, or nutritional status, or are non- or non-. According to the National Kidney Foundation, irrespective of diagnosis, the stage of the disease is based on the level of kidney function: Stage Description GFR(mL/min/1.73 m(2)) 1 Kidney damage with normal or decreased GFR 90 2 Kidney damage with mild decrease in GFR 60-89 3 Moderate decrease in GFR 30-59 4 Severe decrease in GFR 15-29 5 Kidney failure <15 (or dialysis) 3 Because ethnic data is not always readily available, this report includes an eGFR for both -Americans and non- Americans. The National Kidney Disease Education Program (NKDEP) does not endorse the use of the MDRD equation for patients that are not between the ages of 18 and 70, are , have extremes of body size, muscle mass, or nutritional status, or are non- or non-. According to the National Kidney Foundation, irrespective of diagnosis, the stage of the disease is based on the level of kidney function: Stage Description GFR(mL/min/1.73 m(2)) 1 Kidney damage with normal or decreased GFR 90 2 Kidney damage with mild decrease in GFR 60-89 3 Moderate decrease in GFR 30-59 4 Severe decrease in GFR 15-29 5 Kidney failure <15 (or dialysis) 4 Loading Rack Supervisor: [id number] Reference Range: 74-125 seconds 5 Loading Rack Supervisor: [id number] Reference Range: 74-125 seconds 6 SEE RESULT BELOW Name: MAYDA ALMENDAREZ : [address]: Damari Muro MD Acct: [id number] Unit: [id number] AGE: 57 Location: [place] Re07/14/18 SEX: F [place] [facility] [place]: [id number] SLAVA: 07/14/181355 [facility] DR: Damari Muro MD REQ: [id number] RECD: 07/14/18 STATUS: SOUT _ ORDERED: FNA-IMG GUID BX/5, CY ADEQ-ADDL P/2, LEVEL 4/5, CYTO ADEQ-1ST P/5 FINAL DIAGNOSIS 1. Lymph node, L10, Endobronchial ultrasound guided fine needle aspiration: --Benign bronchial epithelium and lymphoid tissue. --No evidence of metastatic malignancy identified. 2. Lymph node, L4, Endobronchial ultrasound guided fine needle aspiration: --Lymphoid tissue only. --No evidence of metastatic malignancy identified. 3. Lymph node, Station7, Endobronchial ultrasound guided fine needle aspiration: --Lymphoid tissue only. --No evidence of metastatic malignancy identified. 4. Lymph node, R4, Endobronchial ultrasound guided fine needle aspiration: --Benign bronchial epithelium and lymphoid tissue. --No evidence of metastatic malignancy identified. 5. Lymph node, R10, Endobronchial ultrasound guided fine needle aspiration: --Benign bronchial epithelium and lymphoid tissue. --No evidence of metastatic malignancy identified. For parts 1-5, a cell block was prepared in the evaluation of this specimen. Smears and cell block reveal similar findings. CONTINUED ON NEXT PAGE DEPARTMENT OF PATHOLOGY, [address] [place] [address] Edward Mcallister M.D. Director [facility] # [id number] RUN DATE: 07/15/18 [facility] LIVE PAGE 2 Patient: MAYDA ALMENDAREZ [id number] (Continued) SPECIMEN COMMENTS (Continued) #1. LYMPH NODE - US GUIDED ENDOBRONCHIAL L-10 LYMPH NODE FINE NEEDLE ASPIRATION, #2. LYMPH NODE - US GUIDED ENDOBRONCHIAL L-4 LYMPH NODE FINE NEEDLE ASPIRATION, #3. LYMPH NODE - US GUIDED ENDOBRONCHIAL ST-7 LYMPH NODE FINE NEEDLE ASPIRATION, #4. LYMPH NODE - US GUIDED ENDOBRONCHIAL R-4 LYMPH NODE FINE NEEDLE ASPIRATION, #5. LYMPH NODE - US GUIDED ENDOBRONCHIAL R-10 LYMPH NODEFINE NEEDLE ASPIRATION CLINICAL HISTORY #1) L-10 lymph node. #2) L-4 lymph node. #3) Station- 7 lymph node. #4) R-4 lymph node. #5) R-10 lymph node. IMMEDIATE INTERPRETATION 1. Pass 1 2-adequate 2. Passes 1 2-inadequate, pass 3-adequate 3. Passes 1-3 adequate 4. Passes 1 2-adequate 5. Pass 1-adequate GROSS DESCRIPTION #1) US guided endobronchial fine needle aspiration x 2 pass(es) with 4 alcohol fixed slides, 2 Air dried slide(s) and needle rinse in formalin for cell block. #2) US guided endobronchial fine needle aspiration x 3 pass(es) with 7 alcohol fixed slides, and needle rinse in formalin for cell block. #3) US guided endobronchial fine needle aspiration x 3 pass(es) with 6 alcohol fixed slides and needle rinse in formalin for cell block. #4) US guided endobronchial fine needle aspiration x 2 pass(es) with 2 alcohol fixed slides and needle rinse in formalin for cell block. #5) US guided endobronchial fine needle aspiration x 2 pass(es) with 2 alcohol fixed slides and needle rinse in formalin for cell block. Signed by and Reported on: Joanie Walls MD 07/15/18 1620 END OF REPORT DEPARTMENT OF PATHOLOGY, [address] [place] [address] Edward Mcallister M.D. Director [facility] # [id number] 7 SEE RESULT BELOW Name: MAYDA ALMENDAREZ : [address]: Yvonne Verma MD Acct: [id number] Unit: [id number] AGE: 57 Location: SP Re06/28/18 SEX: F Status: REG REF SPEC: [id number] SLAVA: 06/28/18-[address] [facility] [address]: Yvonne Verma MD REQ: [id number] RECD: 06/28/18915 STATUS: ASHLEY SEBASTIAN DR: Alcides Ponce MD _ ORDERED: FNA-IMG GUID BX, LEVEL 4, CYTO ADEQ-1ST P THIS IS A CORRECTED REPORT 06/30/18-1121 Corrected Report Addendum: An immunohistochemical stain for PDL 1 performed with appropriate controls is negative (0% tumor, 0% lymphocytes). Addendum Signed (signature on file) Edward Mcallister MD 1139 FINAL DIAGNOSIS Lung, right upper lobe, CT guided fine needle aspiration: -- Malignant. -- Well-differentiated adenocarcinoma. Comment: The aspirate smears demonstrate a background of abundant macrophages, and other chronic inflammatory elements as well as a few scattered sheets of reactive mesothelial cells. Intermixed with these groups are scattered irregularly shaped disordered epithelial groups composed monomorphic cytologically malignant epithelium with mild pleomorphism and anisocytosis with irregular nuclear contours and mild hyperchromasia. Some groups contain cells with intranuclear pseudoinclusions. No cilia are identified. The findings are characteristic of a well-differentiated pulmonary adenocarcinoma with an extensive adjacent inflammatory reaction. Additional studies including PDL 1 and ALK stains as well gene sequencing panel are pending and will be reported in an addendum. CONTINUED ON NEXT PAGE DEPARTMENT OF PATHOLOGY, [address] [place] [address] Edward Mcallister M.D. Director [facility] # [id number] RUN DATE: 07/01/18 [facility] LIVE PAGE 2 Patient: MAYDA ALMENDAREZ [id number] (Continued) SPECIMEN COMMENTS (Continued) Dr. Walls has reviewed this case and concurs. A cell block was prepared in the evaluation of this specimen. Smears and cell block reveal similar findings. LUNG RIGHT - CT GUIDED RIGHT LUNG FINE NEEDLE ASPIRATION CLINICAL HISTORY Right upper lobe lung nodule. IMMEDIATE INTERPRETATION Pass 1-[address] Guided, fine needle aspiration x 3 passes with 5 Alcohol fixed slide(s), 9 Air dried slide(s) and needle rinse in formalin for cell block. Signed by and Reported on: Edward Mcallister MD 1132 END OF REPORT DEPARTMENT OF PATHOLOGY, [address] [place] [address] Edward Mcallister M.D. Director [facility] # [id number] Lung Panel with Rearrangement Tumor was cancelled on 07/06/2018 at 10:37; There was an insufficient amount of tumor tissue for analysis. Please send additional formalin fixed material or stained cytology slides if testing is still desired. Refer to [employer] ([place] test ID [id number]) or call for more information about specimen requirements for this test. Test Performed by: [place] [id number] 9 SEE RESULT BELOW Name: ERICKSONMAYDA : [address]: Yvonne Verma MD Acct: [id number] Unit: [id number] AGE: 57 Location: Re06/28/18 SEX: F Status: REG REF SPEC: [id number] SLAVA: 06/28/[address] [facility] [address]: Yvonne Verma MD REQ: [id number] RECD: 06/28/18 STATUS: ASHLEY SEBASTIAN DR: Alcides Ponce MD _ ORDERED: FNA-IMG GUID BX, LEVEL 4, CYTO ADEQ-1ST P, IMMUNO-QUANT, IHC TECH, 1ST THIS IS A CORRECTED REPORT 06/30/18 Corrected Report Addendum: An immunohistochemical stain for ALK performed on formalin fixed cell block material with appropriate controls at [facility] and interpreted by [facility] pathology is negative Addendum Signed (signature on file) Edward Mcallister MD 1600 Addendum: An immunohistochemical stain for PDL 1 performed with appropriate controls is negative (0% tumor, 0% lymphocytes). Addendum Signed (signature on file) Edward Mcallister MD 1139 FINAL DIAGNOSIS Lung, right upper lobe, CT guided fine needle aspiration: -- Malignant. -- Well-differentiated adenocarcinoma. Comment: The aspirate smears demonstrate a background of abundant macrophages, and other chronic inflammatory elements as well as a few scattered sheets of reactive mesothelial cells. Intermixed with these groups are scattered irregularly shaped disordered epithelial groups composed monomorphic cytologically malignant epithelium with mild pleomorphism and anisocytosis with irregular nuclear contours and mild hyperchromasia. Some groups contain cells with intranuclear pseudoinclusions. No cilia are identified. The findings are CONTINUED ON NEXT PAGE DEPARTMENT OF PATHOLOGY, [address] [place] [address] Edward Mcallister M.D. Director [facility] # [id number] RUN DATE: 07/07/18 [facility] LIVE PAGE 2 Patient: ERICKSONBILLMAYDA R [id number] (Continued) SPECIMEN COMMENTS (Continued) characteristic of a well-differentiated pulmonary adenocarcinoma with an extensive adjacent inflammatory reaction. Additional studies including PDL 1 and ALK stains as well gene sequencing panel are pending and will be reported in an addendum. Dr. Walls has reviewed this case and concurs. A cell block was prepared in the evaluation of this specimen. Smears and cell block reveal similar findings. LUNG RIGHT - CT GUIDED RIGHT LUNG FINE NEEDLE ASPIRATION CLINICAL HISTORY Right upper lobe lung nodule. IMMEDIATE INTERPRETATION Pass 1-[address] Guided, fine needle aspiration x 3 passes with 5 Alcohol fixed slide(s), 9 Air dried slide(s) and needle rinse in formalin for cell block. Signed by and Reported on: Edward Mcallister MD 1132 END OF REPORT DEPARTMENT OF PATHOLOGY, [address] [place] [address] Edward Mcallister M.D. Director [facility] # [id number] Lung Panel with Rearrangement Tumor was cancelled on 07/12/2018 at 09:01; There was an insufficient amount of tumor tissue for analysis. Please send additional formalin fixed material or stained cytology slides if testing is still desired. Refer to [employer] ([place] test ID [id number]) or call for more information about specimen requirements for this test. Test Performed by: [address] [id number] 11 SEE RESULT BELOW Name: ERICKSONMAYDA R : [address]: Yvonne Verma MD Acct: [id number] Unit: [id number] AGE: 57 Location: SP Re06/28/18 SEX: F Status: REG REF SPEC: [id number] SLAVA: 06/28/[address] [facility] [address]: Yvonne Verma MD REQ: [id number] RECD: 06/28/18 STATUS: ASHLEY SEBASTIAN DR: Alcides Ponce MD _ ORDERED: FNA-IMG GUID BX, LEVEL 4, CYTO ADEQ-1ST P, IMMUNO-QUANT, IHC TECH, 1ST THIS IS A CORRECTED REPORT 06/30/18 Corrected Report Lung Panel with Rearrangement Tumor has been performed at [facility], [place], [place]. The testing reveals: Received: 11 Jul 2018 12:27 Reported: 12 Jul 2018 09:01 Interpretation Lung Panel with Rearrangement Tumor was cancelled on 07/12/2018 at 09:01; There was an insufficient amount of tumor tissue for analysis. Please send additional formalin fixed material or stained cytology slides if testing is still desired. Refer to [employer] ([place] test ID [id number]) or call for more information about specimen requirements for this test. Addendum Signed (signature on file) Joanie Walls MD 1050 Addendum: An immunohistochemical stain for ALK performed on formalin fixed cell block material with appropriate controls at [facility] and interpreted by [facility] pathology is negative Addendum Signed (signature on file) Edward Mcallister MD 1600 Addendum: An immunohistochemical stain for PDL 1 performed with appropriate controls is negative (0% tumor, 0% lymphocytes). Addendum Signed (signature on file)__Norma_ Edward Mcallister MD 1139 FINAL DIAGNOSIS Lung, right upper lobe, CT guided fine needle aspiration: CONTINUED ON NEXT PAGE DEPARTMENT OF PATHOLOGY, [address], [place], [place] [address] Edward Mcallister M.D. Director [facility] # [id number] RUN DATE: 07/13/18 [facility] LIVE PAGE 2 Patient: MAYDA ALMENDAREZ [id number] (Continued) FINAL DIAGNOSIS (Continued) -- Malignant. -- Well-differentiated adenocarcinoma. Comment: The aspirate smears demonstrate a background of abundant macrophages, and other chronic inflammatory elements as well as a few scattered sheets of reactive mesothelial cells. Intermixed with these groups are scattered irregularly shaped disordered epithelial groups composed monomorphic cytologically malignant epithelium with mild pleomorphism and anisocytosis with irregular nuclear contours and mild hyperchromasia. Some groups contain cells with intranuclear pseudoinclusions. No cilia are identified. The findings are characteristic of a well-differentiated pulmonary adenocarcinoma with an extensive adjacent inflammatory reaction. Additional studies including PDL 1 and ALK stains as well gene sequencing panel are pending and will be reported in an addendum. Dr. Walls has reviewed this case and concurs. A cell block was prepared in the evaluation of this specimen. Smears and cell block reveal similar findings. LUNG RIGHT - CT GUIDED RIGHT LUNG FINE NEEDLE ASPIRATION CLINICAL HISTORY Right upper lobe lung nodule. IMMEDIATE INTERPRETATION Pass 1-3 adequate CONTINUED ON NEXT PAGE DEPARTMENT OF PATHOLOGY, [facility] [place], [place] [address] Edward Mcallister M.D. Director [facility] # [id number] RUN DATE: 07/13/18 [facility] LIVE PAGE 3 Patient: ERICKSONBILLMAYDA R [id number] (Continued) GROSS DESCRIPTION (Continued) GROSS DESCRIPTION CT Guided, fine needle aspiration x 3 passes with 5 Alcohol fixed slide(s), 9 Air dried slide(s) and needle rinse in formalin for cell block. Signed by and Reported on: Edward Mcallister MD 1132 END OF REPORT DEPARTMENT OF PATHOLOGY, [address] [place] [address] Edward Mcallister M.D. Director [facility] # [id number] 12 Because ethnic data is not always readily available, this report includes an eGFR for both -Americans and non- Americans. The National Kidney Disease Education Program (NKDEP) does not endorse the use of the MDRD equation for patients that are not between the ages of 18 and 70, are , have extremes of body size, muscle mass, or nutritional status, or are non- or non-. According to the National Kidney Foundation, irrespective of diagnosis, the stage of the disease is based on the level of kidney function: Stage Description GFR(mL/min/1.73 m(2)) 1 Kidney damage with normal or decreased GFR 90 2 Kidney damage with mild decrease in GFR 60-89 3 Moderate decrease in GFR 30-59 4 Severe decrease in GFR 15-29 5 Kidney failure <15 (or dialysis) 13 SEE RESULT BELOW Name: MAYDA ALMENDAREZ : [address]: Yvonne Verma MD Acct: [id number] Unit: [id number] AGE: 57 Location: [facility] Re06/21/18 SEX: F Status: REG REF SPEC: [id number] SLAVA: 06/21/[address]: Yvonne Verma MD REQ: [id number] RECD: 06/21/18 STATUS: ASHLEY SEBASTIAN DR: Alcides Ponce MD _ ORDERED: FNA-G GUID BX, LEVEL 4, CYTO ADEQ-1ST P FINAL DIAGNOSIS Lung, right ,CT guided fine needle aspiration: -- Predominantly macrophages. -- Rare group of benign bronchial epithelium seen. A cell block was prepared in the evaluation of this specimen. Smears and cell block reveal similar findings. LUNG RIGHT - US GUIDED RIGHT LUNG FINE NEEDLE ASPIRATION CLINICAL HISTORY Right lung nodule. GROSS DESCRIPTION Ultrasound guided, fine needle aspiration x 1 Alcohol fixed slide(s) and needle rinse in formalin for cell block. Signed by and Reported on: Edward Mcallister MD 02/01 1354 END OF REPORT DEPARTMENT OF PATHOLOGY, [address] [place] [address] Edward Mcallister M.D. Director [facility] # [id number] 14 Because ethnic data is not always readily available, this report includes an eGFR for both -Americans and non- Americans. The National Kidney Disease Education Program (NKDEP) does not endorse the use of the MDRD equation for patients that are not between the ages of 18 and 70, are , have extremes of body size, muscle mass, or nutritional status, or are non- or non-. According to the National Kidney Foundation, irrespective of diagnosis, the stage of the disease is based on the level of kidney function: Stage Description GFR(mL/min/1.73 m(2)) 1 Kidney damage with normal or decreased GFR 90 2 Kidney damage with mild decrease in GFR 60-89 3 Moderate decrease in GFR 30-59 4 Severe decrease in GFR 15-29 5 Kidney failure <15 (or dialysis) 15 Loading Rack Supervisor: [id number] 16 Because ethnic data is not always readily available, this report includes an eGFR for both -Americans and non- Americans. The National Kidney Disease Education Program (NKDEP) does not endorse the use of the MDRD equation for patients that are not between the ages of 18 and 70, are , have extremes of body size, muscle mass, or nutritional status, or are non- or non-. According to the National Kidney Foundation, irrespective of diagnosis, the stage of the disease is based on the level of kidney function: Stage Description GFR(mL/min/1.73 m(2)) 1 Kidney damage with normal or decreased GFR 90 2 Kidney damage with mild decrease in GFR 60-89 3 Moderate decrease in GFR 30-59 4 Severe decrease in GFR 15-29 5 Kidney failure <15 (or dialysis) 17 Because ethnic data is not always readily available, this report includes an eGFR for both -Americans and non- Americans. The National Kidney Disease Education Program (NKDEP) does not endorse the use of the MDRD equation for patients that are not between the ages of 18 and 70, are , have extremes of body size, muscle mass, or nutritional status, or are non- or non-. According to the National Kidney Foundation, irrespective of diagnosis, the stage of the disease is based on the level of kidney function: Stage Description GFR(mL/min/1.73 m(2)) 1 Kidney damage with normal or decreased GFR 90 2 Kidney damage with mild decrease in GFR 60-89 3 Moderate decrease in GFR 30-59 4 Severe decrease in GFR 15-29 5 Kidney failure <15 (or dialysis) 18 Because ethnic data is not always readily available, this report includes an eGFR for both -Americans and non- Americans. The National Kidney Disease Education Program (NKDEP) does not endorse the use of the MDRD equation for patients that are not between the ages of 18 and 70, are , have extremes of body size, muscle mass, or nutritional status, or are non- or non-. According to the National Kidney Foundation, irrespective of diagnosis, the stage of the disease is based on the level of kidney function: Stage Description GFR(mL/min/1.73 m(2)) 1 Kidney damage with normal or decreased GFR 90 2 Kidney damage with mild decrease in GFR 60-89 3 Moderate decrease in GFR 30-59 4 Severe decrease in GFR 15-29 5 Kidney failure <15 (or dialysis) 19 Because ethnic data is not always readily available, this report includes an eGFR for both -Americans and non- Americans. The National Kidney Disease Education Program (NKDEP) does not endorse the use of the MDRD equation for patients that are not between the ages of 18 and 70, are , have extremes of body size, muscle mass, or nutritional status, or are non- or non-. According to the National Kidney Foundation, irrespective of diagnosis, the stage of the disease is based on the level of kidney function: Stage Description GFR(mL/min/1.73 m(2)) 1 Kidney damage with normal or decreased GFR 90 2 Kidney damage with mild decrease in GFR 60-89 3 Moderate decrease in GFR 30-59 4 Severe decrease in GFR 15-29 5 Kidney failure <15 (or dialysis) 20 Because ethnic data is not always readily available, this report includes an eGFR for both -Americans and non- Americans. The National Kidney Disease Education Program (NKDEP) does not endorse the use of the MDRD equation for patients that are not between the ages of 18 and 70, are , have extremes of body size, muscle mass, or nutritional status, or are non- or non-. According to the National Kidney Foundation, irrespective of diagnosis, the stage of the disease is based on the level of kidney function: Stage Description GFR(mL/min/1.73 m(2)) 1 Kidney damage with normal or decreased GFR 90 2 Kidney damage with mild decrease in GFR 60-89 3 Moderate decrease in GFR 30-59 4 Severe decrease in GFR 15-29 5 Kidney failure <15 (or dialysis) Procedures Date Code Description Status 01/13/2019 80463 Removal Devitalization Tissue Wound Less Than Equal 20 Completed Square CM 12/17/2018 52330 Removal Devitalization Tissue Wound Less Than Equal 20 Completed Square CM 07/15/2018 24897 Revascularization,Endovascular,Open/Percutaneous,Iliac Completed Artery 07/15/2018 40485 Revascularization,Endovascular,Addtl Ipsilateral Iliac Completed Vessel 07/15/2018 71742 Revascularization,Endovascular W/Atherectomy, Inc Completed Angioplasty 07/15/2018 32960 Revascularization,Endovascular W/Atherectomy, Inc Completed Angioplasty 07/15/2018 91253 Ctpug-Xbuippubi-Mdyqigrwdm Completed 07/15/2018 13067 Ultrasound Guidance For Vascular Access Completed 07/15/2018 05730 Moderate Sedation Services; Same Phys Intl 15 Mins; PT >=5 Completed Years 07/14/2018 72341 Endobronchial Ultrasound=>3 Completed 06/22/2018 19113 Diffusing Capacity Completed 06/22/2018 32497 Plethysmography Determination Lung Volumes & Per Airway Completed Resist 06/22/2018 02603 Pulmonary Function><Bronchodil Completed 06/18/2018 83963 Sleep Study Unattended,HRT Rate,Oxygen Sat,Resp Completed Effort/Airflow 05/17/2018 16527 Removal Devitalization Tissue Wound Less Than Equal 20 Completed Square CM 05/17/2018 30056 ECHO Transthorasic Realtime 2D W Doppler & Color Flow Hosp Completed 05/17/2018 77777 EKG, Interpretation Only Completed Encounters Type Date Location Provider Dx Diagnosis Office Visit 01/06/2019 [facility] Catrachito Henry L97.512 Non-prs chronic 4:20p Angela Roberson M.D. 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 chronic ulcer Diseases oth prt right foot w fat layer exposed Office Visit 09/30/2018 8:30a Wound Care Center Enoc Scott L97.512 Non-prs AT [facility] Oliver Flores chronic ulcer oth prt right foot w fat layer exposed M86.671 Other chronic osteomyelitis, right ankle and foot I70.235 [facility] [place] [facility] of right leg w ulcer oth prt foot Office Visit 07/28/2018 10:30a [facility] Alcides Blanton T81.49xA Infection Medicine Of [facility] Oliver Ponce 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[facility] part [facility] bronchus or lung J44.9 Chronic obstructive pulmonary disease, unspecified F17.210 Nicotine dependence, cigarettes, uncomplicated G47.33 Obstructive sleep apnea (adult) (pediatric) Office Visit 07/01/2018 1:40p [facility] Catrachito Henry L97.512 Non- prs chronic Infectious Oliver Roberson ulcer oth prt Diseases right foot w fat layer exposed Office Visit 06/15/2018 10:00a Pulmonology And Damari Bhaskar, R91.1 [facility] nodule J44.9 Chronic obstructive pulmonary disease, unspecified F17.210 Nicotine dependence, cigarettes, uncomplicated R06.83 Snoring Office Visit 06/09/2018 8:50a [facility] [place] Henry L97.512 Non- prs Angela Roberson M.D. chronic ulcer Diseases oth prt right foot w fat layer exposed B95.61 Methicillin suscep staph infct causing dis classd elswhr M86.671 Other chronic osteomyelitis, right ankle and foot Office Visit 05/26/2018 10:10a [facility] [place] Henry L97.512 Non- prs Infectious Oliver Roberson chronic ulcer Diseases oth prt right foot w fat layer exposed M86.671 Other chronic osteomyelitis, right ankle and foot B95.61 Methicillin suscep staph infct causing dis classd elswhr Z23 Encounter for immunization Office Visit 05/07/2018 Lee[place] Sandi Henry M86.671 Other chronic 11:10a For Angela Roberson M.D. 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 arteries of extremities w gangrene, right leg I70.213 [place] arteries of extrm w intrmt [place], bi legs I70.223 [place] arteries of extrm w rest pain, bilateral legs Office Visit 04/21/2018 10:30a [facility] Chris Guadalupe L97.512 Non-prs [place] [facility] [place] chronic ulcer oth prt right foot w fat layer exposed Office Visit 04/14/2018 11:00a [facility] Chris Guadalupe L97.512 Non-prs AT [facility] [place] chronic ulcer oth prt right foot w fat layer exposed Office Visit 05/14/2016 1:00p [facility] All Diana, M24.574 Contracture, Services Of Oliver right foot C.M.AAlla Plan of Treatment Future Appointment(s):02/21/2019 2:00 pm - Mattie Reyna NP at [facility] Lzvgowve85/13/2019 - Mattie Reyna, DIVINEL97.512 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
--- OUTSIDE RECORDS SUMMARY | 2019-01-30 15:54 | XMS REPORT | Continuity of Care Document ---
:1960 External Reference #:[id number] Author Name Sharon Nassar Care Team Providers Name Role Phone Milton Cagle MD Primary Care Physician Unavailable Payers Date Identification Numbers Payment Provider Subscriber Policy Number: [id number] Medicare Mayda Almendarez PayID: [id number] [facility] [address] [place] [address] Problems Active Problems Provider Date Atherosclerosis of arteries of the Alcides Ponce M.D. Onset: 05/06/2018 extremities Intermittent claudication due to Alcides Ponce M.D. Onset: 05/06/2018 atherosclerosis of [place] artery of limb Family History Date Family [...] at smoker age 8 Smoking Status Reviewed: 01/25/19 current cigarette Began smoking at smoker age [...] Medications SIG Qnty Indications Ordering Provider Date Sulfamethoxazole/Trim take 1 tablet by 21tabs L97.512 Emory Henry 2018 ethoprim DS mouth once a day Oliver Roberson 800-160mg Tablets Plavix 1 by mouth every 90tabs Alcides Ponce, 07/15/2018 75mg Tablets day M.D. Gabapentin 1 by mouth two Alcides Ponce, 05/06/2018 300mg times a day M.D. Capsules Ranitidine HCL take one tablet Unknown 150mg by mouth twice a Tablets day Fluoxetine HCL 3 by mouth every Unknown 20mg day Capsules Olanzapine 1 by mouth every Unknown 10mg Tablets day Aspirin Adult Low 1 by mouth every Unknown Dose day 81mg Tablets DR Mayer as needed Unknown 1mg Oxycodone HCL ER take one tab by Unknown 10mg mouth three Tab ER 12H Abuse-Det times a day Lisinopril 1 by mouth every Unknown 10mg Tablets day Protonix 1 tab by mouth Unknown 40mg Packet every day. [place] Carbonate ER 1 tabs once Unknown every other day 300mg Tablets ER (weaning off per Dr Trejo) History Medications Sulfamethoxazole/Trimethoprim DS take 1 14tabs L97.512 Emory Henry 2018 - 800-160mg tablet by Karol, 12/15/2018 Tablets mouth once M.D. a day Sulfamethoxazole/Trimethoprim DS Take 1 10tabs Alcides Blanton 07/28/2018 - 800-160mg tablet by Oliver Ponce 11/29/2018 Tablets mouth bid for 5 days. Nicoderm CQ topical 28units F17.210 Damari 06/15/2018 - 21mg/24HR Patches 24HR every MD Bhaskar 11/29/2018 morning Nicotine Polacrilex 1 by mouth 60units F17.210 Damari 06/15/2018 - 4mg Lozenges every 4 MD Bhaskar 11/29/2018 hours as needed Ceftriaxone Sodium iv every Emory DAlla 05/11/2018 - 1gm Solution Rec day x 42 Karol, 06/21/2018 days at [facility] M.D. Clonidine HCL apply one Unknown - 0.1mg/24HR Patches Weekly patch once 03/05/2018 per week Effexor XR Unknown - 225 04/05/2018 Prazosin HCL twice daily Unknown - 2mg Capsules 07/06/2018 Gabapentin Unknown - 300mg/6ML Solution 04/05/2018 Detrol LA 4mg 1 by mouth Unknown - Caps ER 24HR every day 07/06/2018 Immunizations CPT Code Status Date Vaccine Lot # [id number] Given 05/26/2018 Influenza Virus Vaccine, Quadrivalent, Split, [id number] Preservative Free Vital Signs Date Vital Result Comment 01/25/2019 1:36pm Height 66 inches 5'6" Heart [...] Result H/L Range Note Laboratory test 01/20/2019 [facility] C Reactive 17.62 mg/L High <8.[address] [place] [address] [phone] Comp Metabolic 01/20/2019 [facility] Sodium 135 mmol/L N 135- [address] [place] [address] [phone] Potassium 4.7 mmol/L N 3.5-5.0 Chloride 105 [...] Non- 60.2 >60 Egfr 72.9 >60 1 Laboratory test 12/17/2018 [facility] C Reactive 22.41 mg/L High <8.[address] [place] [address] [phone] Comp Metabolic 12/17/2018 [facility] Sodium 134 mmol/L Low 135 -[address] [place] [address] [phone] Chloride 102 mmol/L N 101-111 Co2 Carbon [...] Gap 6 mmol/L N 2-11 Laboratory test 07/15/2018 [facility] Poc Activated 213 seconds [address] [place] [address] [phone] Laboratory test 07/15/2018 [facility] Poc Activated 213 seconds [address] [place] [place] [address] [phone] Basic Metabolic 07/15/2018 [facility] Sodium 137 mmol/L N 135- [address] [place] [address] [phone] Potassium 4.1 mmol/L N 3.5-5.0 Chloride 106 mmol/L N 101-111 Co2 Carbon Dioxide 26 mmol/L N 22-32 Anion Gap 5 mmol/L N 2-11 Glucose 106 mg/dL High 70-100 Blood Urea Nitrogen 12 mg/dL N 6-24 Creatinine 0.71 mg/dL N 0.51-0.95 BUN/Creatinine Ratio 16.9 N 8-20 Calcium 9.7 mg/dL N 8.6-10.3 Egfr Non- 84.6 >60 Egfr 102.3 >60 5 CBC Auto 07/15/2018 [facility] White Blood 22.1 10^3/uL High 3.5-10.[address] [place] [address] [phone] Red Blood Count 4.53 10^6/uL N 4.00-5.40 [...] Red Blood Cells % 0.1 Inr/Protime 07/15/2018 [facility] Inr 0.95 N 0.77-1.[address] [place] [address] [phone] Laboratory test 07/15/2018 [facility] Partial Thrombo 30.1 N 26.0-36.[address] [place] [address] [phone] Laboratory test 07/14/2018 [facility] Cytology [employer] SEE RESULT [address] [place] [address] [phone] Laboratory test 06/28/2018 [facility] Cytology Non[employer] SEE RESULT [address] [place] [address] [phone] Lung Cancer 06/28/2018 [facility] LNGPR TNP () 8 Targeted Gene [address] [place] [address] [phone] Laboratory test 06/28/2018 [facility] Cytology Non[employer] SEE RESULT [address] [place] [address] [phone] Lung Cancer 06/28/2018 [facility] LNGPR TNP () 10 Targeted Gene [address] [place] [address] [phone] Laboratory test 06/28/2018 [facility] Cytology Non[employer] SEE RESULT [address] [place] [address] [phone] Platelet Count 06/28/2018 [facility] Platelet Count 223 N 150- [address] 10^3/uL [place], [place] [address] [phone] Mean Platelet Volume 7.3 fL Low 7.4-10.4 Inr/Protime 06/28/2018 [facility] Inr 0.89 N 0.77-1.[address] [place] [address] [phone] Laboratory test 06/28/2018 [facility] Partial 31.0 seconds N 26.0-36.[address] [place] [address] PTT [phone] Basic Metabolic 06/24/2018 [facility] Sodium 140 mmol/L N 135- [address] [place] [address] [phone] Potassium 4.0 mmol/L N 3.5-5.0 Chloride 102 mmol/L N 101-111 Co2 Carbon Dioxide 30 mmol/L N 22-32 Anion Gap 8 mmol/L N 2-11 Glucose 96 mg/dL N 70-100 Blood Urea Nitrogen 10 mg/dL N 6-24 Creatinine 0.77 mg/dL N 0.51-0.95 BUN/Creatinine Ratio 13.0 N 8-20 Calcium 9.8 mg/dL N 8.6-10.3 Egfr Non- 77.0 >60 Egfr 93.2 >60 12 Laboratory test 06/21/2018 [facility] Cytology SEE RESULT [address] [employer] [place], [place] [phone] Platelet Count 06/21/2018 [facility] Platelet Count 220 10^3/uL N 150-[address] [place] [address] [phone] Mean Platelet Volume 7.8 fL N 7.4-10.4 Inr/Protime 06/21/2018 [facility] Inr 0.92 N 0.77-1.[address] [place] [address] [phone] Laboratory test 06/21/2018 [facility] Partial 32.5 N 26.0- 36.[address] [place] [address] Time PTT [phone] CBC Auto Diff 06/15/2018 [facility] White Blood 15.0 High 3.5- 10.[address] Count 10^3/[place] [address] [phone] Red Blood Count 4.75 10^6/uL N 4.00-5.40 [...] Cells % 0.1 Comp Metabolic Panel 06/15/2018 [facility] Sodium 137 mmol/L N 135-[address] [place] [address] [phone] Potassium 4.6 mmol/L N 3.5-5.0 Chloride 104 [...] Egfr 117.4 >60 14 Laboratory test 06/15/2018 [facility] C Reactive 15.00 mg/L High <8.[address] [place] [address] [phone] Laboratory test 06/14/2018 [facility] Point of Care 97 mg/dL N 70-[address] [place] [address] [phone] CBC Auto Diff 06/08/2018 [facility] White Blood 9.6 N 3.5- 10.[address] Count 10^3/[place] [address] [phone] Red Blood Count 4.37 10^6/uL N 4.00-5.40 [...] Cells % 0 Comp Metabolic Panel 06/08/2018 [facility] Sodium 139 mmol/L N 135-[address] [place] [address] [phone] Potassium 4.2 mmol/L N 3.5-5.0 Chloride 105 [...] Egfr 109.4 >60 16 Laboratory test 06/08/2018 [facility] C Reactive 15.99 mg/L High <8.[address] [place] [address] [phone] CBC Auto Diff 06/01/2018 [facility] White Blood 9.4 N 3.5- 10.[address] Count 10^3/[place] [address] [phone] Red Blood Count 4.38 10^6/uL N 4.00-5.40 [...] Cells % 0.1 Comp Metabolic Panel 06/01/2018 [facility] Sodium 139 mmol/L N 135-145 [address] [place] [address] [phone] Potassium 4.2 mmol/L N 3.5-5.0 Chloride 105 [...] Egfr 115.3 >60 17 Laboratory test 06/01/2018 [facility] C Reactive 14.61 mg/L High <8.01 finding [address] [place] [address] [phone] Laboratory test 05/25/2018 [facility] C Reactive 22.05 mg/L High <8.01 finding [address] [place] [address] [phone] Comp Metabolic 05/25/2018 [facility] Sodium 138 mmol/L N 135- 145 Panel [address] [place] [address] [phone] Potassium 4.3 mmol/L N 3.5-5.0 Chloride 105 [...] 102.3 >60 18 CBC Auto Diff 05/25/2018 [facility] White Blood 10.6 10^3/uL N 3.5-10.[address] [place] [address] [phone] Red Blood Count 4.37 10^6/uL N 4.00-5.40 [...] 0-2 Nucleated Red Blood Cells % 0.2 Laboratory test 05/18/2018 [facility] C Reactive 16.97 mg/L High <8.[address] [place] [address] [phone] Comp Metabolic 05/18/2018 [facility] Sodium 138 mmol/L N 135- [address] [place] [address] [phone] Potassium 3.8 mmol/L N 3.5-5.0 Chloride 105 [...] Non- 95.3 >60 Egfr 115.3 >60 19 CBC Auto Diff 05/18/2018 [facility] White Blood 9.8 10^3/uL N 3.5-10.[address] [place] [address] [phone] Red Blood Count 4.47 10^6/uL N 4.00-5.40 [...] Red Blood Cells % 0 Laboratory test 05/11/2018 [facility] C Reactive 14.31 mg/L High <8.[address] [place] [address] [phone] Comp Metabolic 05/11/2018 [facility] Sodium 138 mmol/L N 135- [address] [place] [address] [phone] Potassium 4.4 mmol/L N 3.5-5.0 Chloride 105 [...] 111.3 >60 20 CBC Auto Diff 05/11/2018 [facility] White Blood 10.0 10^3/uL N 3.5-10.[address] [place] [address] [phone] Red Blood Count 4.41 10^6/uL N 4.00-5.40 [...] 5 Kidney failure <15 (or dialysis) 3 Fleet Sales Manager: [id number] Reference Range: 74-125 seconds 4 Fleet Sales Manager: [id number] Reference Range: 74-125 seconds 5 Because ethnic data is not always readily [...] 15-29 5 Kidney failure <15 (or dialysis) 6 SEE RESULT BELOW Name: MAYDA ALMENDAREZ : [address]: Damari Muro MD Acct: [id number] Unit: [id number] AGE: 57 Location: OR Re07/14/18 SEX: F Status: ELICIA NAVARRO SPEC: [id number] SLAVA: 07/14/18-[address] [facility] [address]: Damari Muro MD REQ: [id number] RECD: 07/14/18 STATUS: SOUT _ ORDERED: FNA-IMG [...] CONTINUED ON NEXT PAGE DEPARTMENT OF PATHOLOGY, [address] [place] [address] Edward Mcallister M.D. Director [facility] # [id number] RUN DATE: 07/15/18 [facility] LAB LIVE PAGE 2 Patient: ERICKSONBILLMAYDA R [id number] (Continued) SPECIMEN COMMENTS (Continued) #1. LYMPH NODE [...] 1620 END OF REPORT DEPARTMENT OF PATHOLOGY, [address] [place] [address] Edward Mcallister M.D. Director [facility] # [id number] 7 SEE RESULT BELOW Name: ERICKSONMAYDA R : [address]: Yvonne Verma MD Acct: [id number] Unit: [id number] AGE: 57 Location: SP Re06/28/18 SEX: F Status: REG REF SPEC: [id number] SLAVA: 06/28/18-[address] [facility] [address]: Yvonne Verma MD REQ: [id number] RECD: 06/28/18 STATUS: ASHLEY SEBASTIAN DR: Alcides Ponce MD _ ORDERED: FNA-IMG GUID BX, LEVEL 4, CYTO ADEQ-1ST P THIS IS A CORRECTED REPORT 06/30/18 Corrected [...] CONTINUED ON NEXT PAGE DEPARTMENT OF PATHOLOGY, [address] [place] [address] Edward Mcallister M.D. Director [facility] # [id number] RUN DATE: 07/01/18 [facility] LAB LIVE PAGE 2 Patient: MAYDA ALMENDAREZ [id number] (Continued) SPECIMEN COMMENTS (Continued) Dr. Walls has [...] 1132 END OF REPORT DEPARTMENT OF PATHOLOGY, [address] [place] [address] Edward Mcallister M.D. Director [facility] # [id number] 8 Lung Panel with Rearrangement Tumor was cancelled on 07/06/2018 at 10:37; There was an insufficient amount of tumor tissue for analysis. Please send additional formalin fixed material or stained cytology slides if testing is still desired. Refer to [employer] [facility] test ID [email or web address]) or call for more information about specimen requirements for this test. Test Performed by: [address] [address] 9 SEE RESULT BELOW Name: MAYDA ALMENDAREZ : [address]: Yvonne Verma MD Acct: [id number] Unit: [id number] AGE: 57 Location: Re06/28/18 SEX: F Status: REG REF SPEC: [id number] SLAVA: 06/28/[address]: Yvonne Verma MD REQ: [id number] RECD: 06/28/18 STATUS: ASHLEY SEBASTIAN DR: Alcides Ponce MD _ ORDERED: FNA-IMG GUID BX, LEVEL 4, CYTO ADEQ-1ST P, IMMUNO-QUANT, IHC TECH, 1ST THIS IS A CORRECTED REPORT 06/30/18 Corrected Report Addendum: An immunohistochemical stain for ALK performed on formalin fixed cell block material with appropriate controls at [facility] and interpreted by [facility] pathology is negative Addendum Signed (signature on [...] CONTINUED ON NEXT PAGE DEPARTMENT OF PATHOLOGY, [address] [place] [address] Edward Mcallister M.D. Director [facility] # [id number] RUN DATE: 07/07/18 [facility] LAB LIVE PAGE 2 Patient: ERICKSONMAYDA Tino [id number] (Continued) SPECIMEN COMMENTS (Continued) characteristic of a [...] 1132 END OF REPORT DEPARTMENT OF PATHOLOGY, [address] [place] [address] Edward Mcallister M.D. Director [facility] # [id number] 10 Lung Panel with Rearrangement Tumor was cancelled on 07/12/2018 at 09:01; There was an insufficient amount of tumor tissue for analysis. Please send additional formalin fixed material or stained cytology slides if testing is still desired. Refer to [employer] ([place] test ID [email or web address]) or call for more information about specimen requirements for this test. Test Performed by: [facility] - [address] [address] 11 SEE RESULT BELOW Name: MAYDA ALMENDAREZ : [address]: Yvonne Verma MD Acct: [id number] Unit: [id number] AGE: 57 Location: Re06/28/18 SEX: F Status: REG REF SPEC: [id number] SLAVA: 06/28/[address]: Yvonne Verma MD REQ: [id number] RECD: 06/28/18 STATUS: ASHLEY SEBASTIAN DR: Alcides Ponce MD _ ORDERED: FNA-IMG GUID BX, LEVEL 4, CYTO ADEQ-1ST P, IMMUNO-QUANT, IHC TECH, 1ST THIS IS A CORRECTED REPORT 06/30/18 Corrected Report Lung Panel with Rearrangement Tumor has been performed at [place], [place]. The testing reveals: Received: 11 Jul 2018 12:27 Reported: 12 Jul 2018 09:01 Interpretation Lung Panel with Rearrangement Tumor was cancelled on 07/12/2018 at 09:01; There was an insufficient amount of tumor tissue for analysis. Please send additional formalin fixed material or stained cytology slides if testing is still desired. Refer to [employer] ([place] test ID [id number]) or call for more information about specimen requirements for this test. Addendum Signed (signature on file) Joanie Walls MD 1050 Addendum: An immunohistochemical stain for ALK performed on formalin fixed cell block material with appropriate controls at [facility] laboratories and interpreted by [facility] pathology is negative Addendum Signed (signature on file) Edward Mcallister MD 1600 Addendum: An immunohistochemical stain for PDL 1 performed with appropriate controls is negative (0% tumor, 0% lymphocytes). Addendum Signed (signature on file) Edward Mcallister MD 1139 FINAL DIAGNOSIS Lung, right upper lobe, CT guided fine needle aspiration: CONTINUED ON NEXT PAGE DEPARTMENT OF PATHOLOGY, [address] [place] [address] Edward Mcallister M.D. Director [facility] # [id number] RUN DATE: 07/13/18 [facility] LAB LIVE PAGE 2 Patient: MAYDA ALMENDAREZ [id number] (Continued) FINAL DIAGNOSIS (Continued) -- Malignant. -- [...] CONTINUED ON NEXT PAGE DEPARTMENT OF PATHOLOGY, [address] [place] [address] Edward Mcallister M.D. Director [facility] # [id number] RUN DATE: 07/13/18 [facility] LAB LIVE PAGE 3 Patient: MAYDA ALMENDAREZ [id number] (Continued) GROSS DESCRIPTION (Continued) GROSS DESCRIPTION CT Guided, fine needle aspiration x 3 passes with 5 Alcohol fixed slide(s), 9 Air dried slide(s) and needle rinse in formalin for cell block. Signed by and Reported on: Edward Mcallister MD 1132 END OF REPORT DEPARTMENT OF PATHOLOGY, [address] [place] [address] Edward Mcallister M.D. Director [facility] # [id number] 12 Because ethnic data is not always [...] [address]: Yvonne Verma MD Acct: [id number] Unit: [id number] AGE: 57 Location: [facility] Re06/21/18 SEX: F Status: REG REF SPEC: [id number] SLAVA: 06/21/18-[address] [facility] [address]: Yvonne Verma MD REQ: [id number] RECD: 06/21/181 STATUS: ASHLEY SEBASTIAN DR: Alcides Ponce MD [...] 1354 END OF REPORT DEPARTMENT OF PATHOLOGY, [address] [place] [address] Edward Mcallister M.D. Director [facility] # [id number] 14 Because ethnic data is not always [...] 5 Kidney failure <15 (or dialysis) 15 Fleet Sales Manager: [id number] 16 Because ethnic data is not always [...] dialysis) Procedures Date Code Description Status 01/13/2019 30821 Removal Devitalization Tissue Wound Less Than Equal 20 Completed Square CM 12/17/2018 17383 Removal Devitalization Tissue Wound Less Than Equal 20 Completed Square CM 07/15/2018 14518 Revascularization,Endovascular,Open/Percutaneous,Iliac Completed Artery 07/15/2018 15599 Revascularization,Endovascular,Addtl Ipsilateral Iliac Completed Vessel 07/15/2018 26415 Revascularization,Endovascular W/Atherectomy, Inc Completed Angioplasty 07/15/2018 11058 Revascularization,Endovascular W/Atherectomy, Inc Completed Angioplasty 07/15/2018 90363 [id number]-Vekiinezfh Completed 07/15/2018 47795 Ultrasound Guidance For Vascular Access Completed 07/15/2018 18434 Moderate Sedation Services; Same Phys Intl 15 Mins; PT >=5 Completed Years 07/14/2018 72233 Endobronchial Ultrasound=>3 Completed 06/22/2018 84968 Diffusing Capacity Completed 06/22/2018 08013 Plethysmography Determination Lung Volumes & Per Airway Completed Resist 06/22/2018 91421 Pulmonary Function><Bronchodil Completed 06/18/2018 50844 Sleep Study Unattended,HRT Rate,Oxygen Sat,Resp Completed Effort/Airflow 05/17/2018 30664 Removal Devitalization Tissue Wound Less Than Equal 20 Completed Square CM 05/17/2018 84288 ECHO Transthorasic Realtime 2D W Doppler & Color Flow Hosp Completed 05/17/2018 71282 EKG, Interpretation Only Completed Encounters Type Date Location Provider Dx Diagnosis Office Visit 01/06/2019 [facility] Catrachito Henry L97.512 Non-prs chronic 4:20p Angela Roberson M.D. 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 chronic ulcer Diseases oth prt right foot w fat layer exposed Office Visit 09/30/2018 8:30a Wound Care Center Enoc Scott L97.512 Non-prs AT [facility] Oliver Flores chronic ulcer oth prt right foot w fat layer exposed M86.671 Other chronic osteomyelitis, right ankle and foot I70.235 Athscl [place] arteries of right leg w ulcer oth prt foot Office Visit 07/28/2018 10:30a [facility] Alcides Blanton T81.49xA Infection Medicine Of Samson Ponce M.D. 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[facility] [place] part of [facility] bronchus or lung J44.9 Chronic obstructive pulmonary disease, unspecified F17.210 Nicotine dependence, cigarettes, uncomplicated G47.33 Obstructive sleep apnea (adult) (pediatric) Office Visit 07/01/2018 1:40p [facility] Catrachito Henry L97.512 Non- prs chronic Infectious Oliver Roberson ulcer oth prt Diseases right foot w fat layer exposed Office Visit 06/15/2018 10:00a Pulmonology And Damari Bhaskar, R91.1 Solitary [facility] Services Of pulmonary [facility] nodule J44.9 Chronic obstructive pulmonary disease, unspecified F17.210 Nicotine dependence, cigarettes, uncomplicated R06.83 Snoring Office Visit 06/09/2018 8:50a [facility] Catrachito Henry L97.512 Non- prs Infectious Oliver Roberson chronic ulcer Diseases oth prt right foot w fat layer exposed B95.61 Methicillin suscep staph infct causing dis classd elswhr M86.671 Other chronic osteomyelitis, right ankle and foot Office Visit 05/26/2018 10:10a [facility] Catrachito Henry L97.512 Non- prs Infectious Oliver Roberson chronic ulcer Diseases oth prt right foot w fat layer exposed M86.671 Other chronic osteomyelitis, right ankle and foot B95.61 Methicillin suscep staph infct causing dis classd elswhr Z23 Encounter for immunization Office Visit 05/07/2018 [facility] Emory Henry M86.671 Other chronic 11:10a For Infectious Oliver Roberson osteomyelitis, Diseases right ankle and foot 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 I73.9 Peripheral vascular disease, unspecified Office Visit 05/06/2018 8:30a [facility] Alcides Blanton I70.261 [facility] [place] [facility] Of Samson Ponce M.D. arteries of extremities w gangrene, right leg I70.213 [facility] [place] [facility] w intrmt [place], bi legs I70.223 [facility] [place] [facility] w rest pain, bilateral legs Office Visit 04/21/2018 10:30a [facility] Chris Guadalupe L97.512 Non-prs AT [facility] MD Malick chronic ulcer oth prt right foot w fat layer exposed Office Visit 04/14/2018 11:00a [facility] Chris Guadalupe L97.512 Non-prs AT [facility] MD Malick chronic ulcer oth prt right foot w fat layer exposed Office Visit 05/14/2016 1:00p Orthopedic All Diana, M24.574 Contracture, Services Of Oliver right foot C.M.A. Plan of Treatment Future Appointment(s):01/27/2019 1:30 pm - Mattie Reyna NP at [facility] Infectious Gpdrelib54/11/2019 - Yoandy Delacruz, MDM86.671 Other chronic osteomyelitis, right ankle and footReferral:Emory Roberson MD, Infectious DiseasesFollow up:Follow Up: As needed
--- OUTSIDE RECORDS SUMMARY | 2019-01-30 15:54 | XMS REPORT | Continuity of Care Document ---
:1960 External Reference #:[id number] Author Name Jossie Bliss Care Team Providers Name Role Phone Milton Cagle MD Primary Care Physician Unavailable Payers Date Identification Numbers Payment Provider Subscriber Policy Number: [id number] Medicare Mayda Almendarez PayID: [id number] [facility] [address] [place] [address] Problems Active Problems Provider Date Atherosclerosis of arteries of the Alcides Ponce M.D. Onset: 05/06/2018 extremities Intermittent claudication due to Alcides Ponce M.D. Onset: 05/06/2018 atherosclerosis of [place] artery of limb Family History Date Family [...] at smoker age 8 Smoking Status Reviewed: 01/06/19 current cigarette Began smoking at smoker age [...] once a day Oliver Roberson 800-160mg Tablets Gabapentin 1 by mouth two [...] by mouth Unknown 40mg Packet every day. [place] Carbonate ER 1 tabs once Unknown every [...] day x 42 Karol, 06/21/2018 days at [facility] [place]. Clonidine HCL apply one Unknown - 0.1mg/24HR Patches Weekly patch once 03/05/2018 per week Effexor XR Unknown - 225 04/05/2018 Prazosin HCL twice daily Unknown - 2mg Capsules 07/06/2018 Gabapentin Unknown - 300mg/6ML Solution 04/05/2018 Detrol LA 4mg 1 by mouth Unknown - Caps ER 24HR every day 07/06/2018 Immunizations CPT Code Status Date Vaccine Lot # [id number] Given 05/26/2018 Influenza Virus Vaccine, Quadrivalent, Split, [id number] Preservative Free Vital Signs Date Vital Result Comment 01/06/2019 3:26pm Height 66 inches 5'6" Weight [...] Test Result H/L Range Note Laboratory test 12/17/2018 [facility] C Reactive 22.41 mg/L High <8.[address] [place] [address] [phone] Comp Metabolic 12/17/2018 [facility] Sodium 134 mmol/L Low 135 -[address] [place] [address] [phone] Chloride 102 mmol/L N 101-111 Co2 Carbon [...] Egfr Non- 43.2 >60 Egfr 52.3 >60 1 Potassium 5.2 mmol/L High 3.5-5.0 Anion Gap 6 mmol/L N 2-11 Laboratory test 07/15/2018 [facility] Poc Activated 213 seconds [address] [place] [address] [phone] Laboratory test 07/15/2018 [facility] Poc Activated 213 seconds [address] [place] [address] [phone] Basic Metabolic 07/15/2018 [facility] Sodium 137 mmol/L N 135- [address] [place] [address] [phone] Potassium 4.1 mmol/L N 3.5-5.0 Chloride 106 mmol/L N 101-111 Co2 Carbon Dioxide 26 mmol/L N 22-32 Anion Gap 5 mmol/L N 2-11 Glucose 106 mg/dL High 70-100 Blood Urea Nitrogen 12 mg/dL N 6-24 Creatinine 0.71 mg/dL N 0.51-0.95 BUN/Creatinine Ratio 16.9 N 8-20 Calcium 9.7 mg/dL N 8.6-10.3 Egfr Non- 84.6 >60 Egfr 102.3 >60 4 CBC Auto 07/15/2018 [facility] White Blood 22.1 10^3/uL High 3.5-10.[address] [place] [address] [phone] Red Blood Count 4.53 10^6/uL N 4.00-5.40 [...] Red Blood Cells % 0.1 Inr/Protime 07/15/2018 [facility] Inr 0.95 N 0.77-1.[address] [place] [address] [phone] Laboratory test 07/15/2018 [facility] Partial Thrombo 30.1 N 26.0-36.[address] [place] [address] [phone] Laboratory test 07/14/2018 [facility] Cytology Non-Rpg Programmer Analyst SEE RESULT [address] [place] [address] [phone] Laboratory test 06/28/2018 [facility] Cytology Non-Rpg Programmer Analyst SEE RESULT [address] [place] [address] [phone] Lung Cancer 06/28/2018 [facility] LNGPR TNP () 7 Targeted Gene [address] [place] [address] [phone] Laboratory test 06/28/2018 [facility] Cytology Non-Rpg Programmer Analyst SEE RESULT [address] [place] [address] [phone] Lung Cancer 06/28/2018 [facility] LNGPR TNP () 9 Targeted Gene [address] [place] [address] [phone] Laboratory test 06/28/2018 [facility] Cytology Non-Rpg Programmer Analyst SEE RESULT [address] [place] [address] [phone] Platelet Count 06/28/2018 [facility] Platelet Count 223 N 150- [address] 10^3/uL [place], [place] [address] [phone] Mean Platelet Volume 7.3 fL Low 7.4-10.4 Inr/Protime 06/28/2018 [facility] Inr 0.89 N 0.77-1.[address] [place], [place] [address] [phone] Laboratory test 06/28/2018 [facility] Partial 31.0 seconds N 26.0-36.[address] [place] [address] [phone] [phone] Basic Metabolic 06/24/2018 [facility] Sodium 140 mmol/L N 135- [address] [place], [place] [address] [phone] Potassium 4.0 mmol/L N 3.5-5.0 Chloride 102 mmol/L N 101-111 Co2 Carbon Dioxide 30 mmol/L N 22-32 Anion Gap 8 mmol/L N 2-11 Glucose 96 mg/dL N 70-100 Blood Urea Nitrogen 10 mg/dL N 6-24 Creatinine 0.77 mg/dL N 0.51-0.95 BUN/Creatinine Ratio 13.0 N 8-20 Calcium 9.8 mg/dL N 8.6-10.3 Egfr Non- 77.0 >60 Egfr 93.2 >60 11 Laboratory test 06/21/2018 [facility] Cytology SEE RESULT [address] Non-Rpg [place] [address] [phone] Platelet Count 06/21/2018 [facility] Platelet Count 220 10^3/uL N 150-[address] 0 [place], [place] [address] [phone] Mean Platelet Volume 7.8 fL N 7.4-10.4 Inr/Protime 06/21/2018 [facility] Inr 0.92 N 0.77-1.[address] [place], [place] [address] [phone] Laboratory test 06/21/2018 [facility] Partial 32.5 N 26.0- 36.[address] [place] [address] Time PTT [phone] CBC Auto Diff 06/15/2018 [facility] White Blood 15.0 High 3.5- 10.[address] Count 10^3/[place] [address] [phone] Red Blood Count 4.75 10^6/uL N 4.00-5.40 [...] Cells % 0.1 Comp Metabolic Panel 06/15/2018 [facility] Sodium 137 mmol/L N 135-[address] [place] [address] [phone] Potassium 4.6 mmol/L N 3.5-5.0 Chloride 104 [...] Egfr Non- 97.1 >60 Egfr 117.4 >60 13 Laboratory test 06/15/2018 [facility] C Reactive 15.00 mg/L High <8.[address] [place] [address] [phone] Laboratory test 06/14/2018 [facility] Point of Care 97 mg/dL N 70-100 [address] [place] [address] [phone] CBC Auto Diff 06/08/2018 [facility] White Blood 9.6 N 3.5- 10.[address] Count 10^3/[place] [address] [phone] Red Blood Count 4.37 10^6/uL N 4.00-5.40 [...] Cells % 0 Comp Metabolic Panel 06/08/2018 [facility] Sodium 139 mmol/L N 135-[address] [place] [address] [phone] Potassium 4.2 mmol/L N 3.5-5.0 Chloride 105 [...] Egfr Non- 90.4 >60 Egfr 109.4 >60 15 Laboratory test 06/08/2018 [facility] C Reactive 15.99 mg/L High <8.[address] [place] [address] [phone] CBC Auto Diff 06/01/2018 [facility] White Blood 9.4 N 3.5- 10.[address] Count 10^3/[place] [address] [phone] Red Blood Count 4.38 10^6/uL N 4.00-5.40 [...] Cells % 0.1 Comp Metabolic Panel 06/01/2018 [facility] Sodium 139 mmol/L N 135-145 [address] [place] [address] [phone] Potassium 4.2 mmol/L N 3.5-5.0 Chloride 105 [...] Egfr Non- 95.3 >60 Egfr 115.3 >60 16 Laboratory test 06/01/2018 [facility] C Reactive 14.61 mg/L High <8.01 finding [address] [place] [address] [phone] Laboratory test 05/25/2018 [facility] C Reactive 22.05 mg/L High <8.01 finding [address] [place] [address] [phone] Comp Metabolic 05/25/2018 [facility] Sodium 138 mmol/L N 135- 145 Panel [address] [place] [address] [phone] Potassium 4.3 mmol/L N 3.5-5.0 Chloride 105 [...] Egfr Non- 84.6 >60 Egfr 102.3 >60 17 CBC Auto Diff 05/25/2018 [facility] White Blood 10.6 10^3/uL N 3.5-10.[address] [place] [address] [phone] Red Blood Count 4.37 10^6/uL N 4.00-5.40 [...] Blood Cells % 0.2 Laboratory test 05/18/2018 [facility] C Reactive 16.97 mg/L High <8.[address] [place] [address] [phone] Comp Metabolic 05/18/2018 [facility] Sodium 138 mmol/L N 135- [address] [place] [address] [phone] Potassium 3.8 mmol/L N 3.5-5.0 Chloride 105 [...] Egfr Non- 95.3 >60 Egfr 115.3 >60 18 CBC Auto Diff 05/18/2018 [facility] White Blood 9.8 10^3/uL N 3.5-10.[address] [place] [address] [phone] Red Blood Count 4.47 10^6/uL N 4.00-5.40 [...] Blood Cells % 0 Laboratory test 05/11/2018 [facility] C Reactive 14.31 mg/L High <8.[address] [place] [address] [phone] Comp Metabolic 05/11/2018 [facility] Sodium 138 mmol/L N 135- [address] [place] [address] [phone] Potassium 4.4 mmol/L N 3.5-5.0 Chloride 105 [...] Egfr Non- 92.0 >60 Egfr 111.3 >60 19 CBC Auto Diff 05/11/2018 [facility] White Blood 10.0 10^3/uL N 3.5-10.[address] [place] [address] [phone] Red Blood Count 4.41 10^6/uL N 4.00-5.40 [...] 5 Kidney failure <15 (or dialysis) 2 Pharmaceutical Worker: [id number] Reference Range: 74-125 seconds 3 Pharmaceutical Worker: [id number] Reference Range: 74-125 seconds 4 Because ethnic data is not always readily [...] 15-29 5 Kidney failure <15 (or dialysis) 5 SEE RESULT BELOW Name: MAYDA ALMENDAREZ : [address]: Damari Muro MD Acct: [id number] Unit: [id number] AGE: 57 Location: OR Re07/14/18 SEX: F Status: ELICIA CRAWFORDC SPEC: [id number] SLAVA: 07/14/18-[address]: Damari Muro MD REQ: [id number] RECD: 07/14/181993 STATUS: SOUT _ ORDERED: FNA-IMG GUID BX/5, [...] CONTINUED ON NEXT PAGE DEPARTMENT OF PATHOLOGY, [address] [place] [address] Edward Mcallister M.D. Director [facility] # [id number] RUN DATE: 07/15/18 [facility] LAB LIVE PAGE 2 Patient: MAYDA ALMENDAREZ Tino [id number] (Continued) SPECIMEN COMMENTS (Continued) #1. LYMPH NODE [...] 1620 END OF REPORT DEPARTMENT OF PATHOLOGY, [address] [place] [address] Edward Mcallister M.D. Director [facility] # [id number] 6 SEE RESULT BELOW Name: MAYDA ALMENDAREZ : [address]: Yvonne Verma MD Acct: [id number] Unit: [id number] AGE: 57 Location: Re06/28/18 SEX: F Status: REG REF SPEC: [id number] SLAVA: 06/28/181405 [facility] DR: Yvonne Verma MD REQ: [id number] RECD: 06/28/18 STATUS: ASHLEY SEBASTIAN DR: Alcides [...] CONTINUED ON NEXT PAGE DEPARTMENT OF PATHOLOGY, [address] [place] [address] Edward Mcallister M.D. Director [facility] # [id number] RUN DATE: 07/01/18 [facility] LAB LIVE PAGE 2 Patient: MAYDA ALMENDAREZ [id number] (Continued) SPECIMEN COMMENTS (Continued) Dr. Walls has [...] 1132 END OF REPORT DEPARTMENT OF PATHOLOGY, [address] [place] [address] Edward Mcallister M.D. Director [facility] # [id number] 7 Lung Panel with Rearrangement Tumor was cancelled on 07/06/2018 at 10:37; There was an insufficient amount of tumor tissue for analysis. Please send additional formalin fixed material or stained cytology slides if testing is still desired. Refer to [employer] ([place] test ID [id number]) or call for more information about specimen requirements for this test. Test Performed by: [address] [address] 8 SEE RESULT BELOW Name: MAYDA ALMENDAREZ : [address]: Yvonne Verma MD Acct: [id number] Unit: [id number] AGE: 57 Location: Re06/28/18 SEX: F Status: REG REF SPEC: [id number] SLAVA: 06/28/[address] [facility] [address]: Yvonne Verma MD REQ: [id number] RECD: 06/28/18 STATUS: ASHLEY SEBASTIAN DR: Alcides Ponce MD _ ORDERED: FNA-IMG GUID BX, LEVEL 4, CYTO ADEQ-1ST P, IMMUNO-QUANT, IHC TECH, 1ST THIS IS A CORRECTED REPORT 06/30/18 Corrected Report Addendum: An immunohistochemical stain for ALK performed on formalin fixed cell block material with appropriate controls at [facility] laboratories and interpreted by [facility] pathology is negative Addendum Signed (signature on [...] CONTINUED ON NEXT PAGE DEPARTMENT OF PATHOLOGY, [address] [place] [address] Edward Mcallister M.D. Director [facility] # [id number] RUN DATE: 07/07/18 [facility] LAB LIVE PAGE 2 Patient: MAYDA ALMENDAREZ [id number] (Continued) SPECIMEN COMMENTS (Continued) characteristic of a [...] 1132 END OF REPORT DEPARTMENT OF PATHOLOGY, [address] [place] [address] Edward Mcallister M.D. Director [facility] # [id number] 9 Lung Panel with Rearrangement Tumor was cancelled on 07/12/2018 at 09:01; There was an insufficient amount of tumor tissue for analysis. Please send additional formalin fixed material or stained cytology slides if testing is still desired. Refer to [employer] ([place] test ID [id number]) or call for more information about specimen requirements for this test. Test Performed by: [address] [address] 10 SEE RESULT BELOW Name: MAYDA ALMENDAREZ : [address]: Yvonne Verma MD Acct: [id number] Unit: [id number] AGE: 57 Location: Re06/28/18 SEX: F Status: REG REF SPEC: [id number] SLAVA: 06/28/[address] [facility] [address]: Yvonne Verma MD REQ: [id number] RECD: 06/28/18 STATUS: ASHLEY SEBASTIAN DR: Alcides Ponce MD _ ORDERED: FNA-IMG GUID BX, LEVEL 4, CYTO ADEQ-1ST P, IMMUNO-QUANT, IHC TECH, 1ST THIS IS A CORRECTED REPORT 06/30/18 Corrected Report Lung Panel with Rearrangement Tumor has been performed at [place], [place]. The testing reveals: Received: 11 Jul 2018 12:27 Reported: 12 Jul 2018 09:01 Interpretation Lung Panel with Rearrangement Tumor was cancelled on 07/12/2018 at 09:01; There was an insufficient amount of tumor tissue for analysis. Please send additional formalin fixed material or stained cytology slides if testing is still desired. Refer to [employer] ([place] test ID [id number]) or call for more information about specimen requirements for this test. Addendum Signed (signature on file) Joanie Walls MD 1050 Addendum: An immunohistochemical stain for ALK performed on formalin fixed cell block material with appropriate controls at [facility] laboratories and interpreted by [facility] pathology is negative Addendum Signed (signature on file)___Ronaldo_ Edward Mcallister MD 1600 Addendum: An immunohistochemical stain for PDL 1 performed with appropriate controls is negative (0% tumor, 0% lymphocytes). Addendum Signed (signature on file) Edward Mcallister MD 1139 FINAL DIAGNOSIS Lung, right upper lobe, CT guided fine needle aspiration: CONTINUED ON NEXT PAGE DEPARTMENT OF PATHOLOGY, [address] [place] [address] Edward Mcallister M.D. Director [facility] # [id number] RUN DATE: 07/13/18 [facility] LAB LIVE PAGE 2 Patient: MAYDA ALMENDAREZ [id number] (Continued) FINAL DIAGNOSIS (Continued) -- Malignant. -- [...] CONTINUED ON NEXT PAGE DEPARTMENT OF PATHOLOGY, [address] [place] [address] Edward Mcallister M.D. Director [facility] # [id number] RUN DATE: 07/13/18 [facility] LAB LIVE PAGE 3 Patient: MAYDA ALMENDAREZ [id number] (Continued) GROSS DESCRIPTION (Continued) GROSS DESCRIPTION CT Guided, fine needle aspiration x 3 passes with 5 Alcohol fixed slide(s), 9 Air dried slide(s) and needle rinse in formalin for cell block. Signed by and Reported on: Edward Mcallister MD 1132 END OF REPORT DEPARTMENT OF PATHOLOGY, [address] [place] [address] Edward Mcallister M.D. Director [facility] # [id number] 11 Because ethnic data is not always readily [...] 15-29 5 Kidney failure <15 (or dialysis) 12 SEE RESULT BELOW Name: MAYDA ALMENDAREZ Tino : [address]: Yvonne Verma MD Acct: [id number] Unit: [id number] AGE: 57 Location: [facility] [place]06/21/18 SEX: F Status: REG REF SPEC: [id number] SLAVA: 06/21/[address] [facility] [address]: Yvonne Verma MD REQ: [id number] RECD: 06/21/18 STATUS: ASHLEY SEBASTIAN DR: Alcides [...] 1354 END OF REPORT DEPARTMENT OF PATHOLOGY, [address] [place] [address] Edward Mcallister M.D. Director [facility] # [id number] 13 Because ethnic data is not always readily [...] 15-29 5 Kidney failure <15 (or dialysis) 14 Pharmaceutical Worker: [id number] 15 Because ethnic data is not always readily [...] 15-29 5 Kidney failure <15 (or dialysis) 16 Because ethnic data is not always [...] (or dialysis) Procedures Date Code Description Status 12/17/2018 91129 Removal Devitalization Tissue Wound Less Than Equal 20 Completed Square CM 07/15/2018 77149 Moderate Sedation Services; Same Phys Intl 15 Mins; PT >=5 Completed Years 07/15/2018 24006 Ultrasound Guidance For Vascular Access Completed 07/15/2018 01325 Vnueg-Ghfosjbzj-Fdznbamygg Completed 07/15/2018 14910 Revascularization,Endovascular W/Atherectomy, Inc Completed Angioplasty 07/15/2018 45540 Revascularization,Endovascular W/Atherectomy, Inc Completed Angioplasty 07/15/2018 91053 Revascularization,Endovascular,Addtl Ipsilateral Iliac Completed Vessel 07/15/2018 33517 Revascularization,Endovascular,Open/Percutaneous,Iliac Completed Artery 07/14/2018 29687 Endobronchial Ultrasound=>3 Completed 06/22/2018 15965 Diffusing Capacity Completed 06/22/2018 79393 Plethysmography Determination Lung Volumes & Per Airway Completed Resist 06/22/2018 11309 Pulmonary Function><Bronchodil Completed 06/18/2018 02967 Sleep Study Unattended,HRT Rate,Oxygen Sat,Resp Completed Effort/Airflow 05/17/2018 99954 Removal Devitalization Tissue Wound Less Than Equal 20 Completed Square CM 05/17/2018 14628 ECHO Transthorasic Realtime 2D W Doppler & Color Flow Hosp Completed 05/17/2018 32671 EKG, Interpretation Only Completed Encounters Type Date Location Provider Dx Diagnosis Office Visit 12/17/2018 [facility] Shireen Muhammad, I70.235 Athscl [place] 3:00p AT [facility] YEMI, RN, LIQUID SUGAR MELTER-BC arteries of right leg w ulcer oth prt foot 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 M86.671 Other chronic osteomyelitis, right ankle and foot Z72.0 Tobacco use Office Visit 12/13/2018 1:30p Orthopedic Yoandy Delacruz L97.519 Non-prs Services Of chronic ulcer Zunilda oth prt [facility] severity M21.371 Foot drop, right foot M67.01 Short Achilles tendon (acquired), right ankle Office Visit 11/30/2018 8:30a [facility] Catrachito Henry L97.512 Non- prs Infectious Oliver Roberson chronic ulcer Diseases oth prt right foot w fat layer exposed Office Visit 09/30/2018 8:30a [facility] Enoc [place] L97.512 Non-prs AT [facility] Oliver Flores chronic ulcer oth prt right foot w fat layer exposed M86.671 Other chronic osteomyelitis, right ankle and foot I70.235 Athscl [place] arteries of right leg w ulcer oth prt foot Office Visit 07/28/2018 10:30a [facility] Alcides Blanton T81.49xA Infection Medicine Of Samson Ponce M.D. 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[facility] Oscillograph Technician part of [facility] bronchus or lung J44.9 Chronic obstructive pulmonary disease, unspecified F17.210 Nicotine dependence, cigarettes, uncomplicated G47.33 Obstructive sleep apnea (adult) (pediatric) Office Visit 07/01/2018 1:40p [facility] Catrachito Henry L97.512 Non- prs chronic Infectious Oliver Roberson ulcer oth prt Diseases right foot w fat layer exposed Office Visit 06/15/2018 10:00a Pulmonology And Damari Bhaskar, R91.1 Solitary Sleep Services Of pulmonary [facility] nodule J44.9 Chronic obstructive pulmonary disease, unspecified F17.210 Nicotine dependence, cigarettes, uncomplicated R06.83 Snoring Office Visit 06/09/2018 8:50a [facility] Catrachito Henry L97.512 Non- prs Infectious Oliver Roberson chronic ulcer Diseases oth prt right foot w fat layer exposed B95.61 Methicillin suscep staph infct causing dis classd elswhr M86.671 Other chronic osteomyelitis, right ankle and foot Office Visit 05/26/2018 10:10a [facility] Catrachito Henry L97.512 Non- prs Infectious Oliver Roberson chronic ulcer Diseases oth prt right foot w fat layer exposed M86.671 Other chronic osteomyelitis, right ankle and foot B95.61 Methicillin suscep staph infct causing dis classd elswhr Z23 Encounter for immunization Office Visit 05/07/2018 [facility] Emory Henry M86.671 Other chronic 11:10a For Angela Roberson M.D. 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 arteries of extremities w gangrene, right leg I70.213 Athscl [place] arteries of extrm w intrmt [place], bi legs I70.223 Athscl [place] arteries of extrm w rest pain, bilateral legs Office Visit 04/21/2018 10:30a [facility] Chris Gipson7.512 Non-prs AT [facility] MD Malick chronic ulcer oth prt right foot w fat layer exposed Office Visit 04/14/2018 11:00a [facility] Chris Gipson7.512 Non-prs AT [facility] MD Malick chronic ulcer oth prt right foot w fat layer exposed Office Visit 05/14/2016 1:00p Orthopedic All Diana, M24.574 Contracture, Services Of Oliver right foot C.M.A. Plan of Treatment Future Appointment(s):01/27/2019 1:40 pm - Emory Roberson M.D. at [facility] Yeazq[facility]62/24/2019 2:00 pm - Yoandy Delacruz MD at [facility]..01/06/2019 - Emory Roberson M.D.L97.512 Non- prs chronic ulcer oth prt right foot w fat layer exposedNew Medication: Sulfamethoxazole/Trimethoprim DS 800-160 mg - take 1 tablet by mouth once a dayComments:antibiotics now, labs 1 week, to er if worsening pain or redness or feverFollow up:3 jxxvsM36.371 Foot drop, right foot
--- NOTE | 2019-01-30 17:06 | ED ---
Neurological HPI - HPI Summary HPI Summary: This patient is a 58 year old F brought to ED by her with a chief complaint of confusion since yesterday. Per , patient might not have been medication compliant. She has been more sleepy than usual for a week. Patient had diarrhea, abdominal pain, and headache starting last night. Last night, patient fell in the bathroom while getting off the toilet. In the room, patient denies any pain. Patient is on antibiotics for a pressure ulcer in her toe. The patient rates the pain 0/10 in severity. Symptoms aggravated by nothing. Symptoms alleviated by nothing. PMHx of HTN, sleep apnea, GERD, IBS, arthritis, lung CA, drop right foot. PSHx of back surgery, tubal ligation, cholecystectomy. Patient does not use alcohol or tobacco but is a heavy every day tobacco smoker. - History of Current Complaint Chief Complaint: EDAbdPain Stated Complaint: "DISORIENTED PER " Time Seen by Provider: 01/30/19 16:49 Hx Obtained From: Patient, Family/Live Truck Operator - Onset/Duration: Gradual Onset, Started weeks ago - Sleepy for one week, confused since yesterday, Still Present Timing: Constant Pain Intensity: 0 Pain Scale Used: 0-10 Numeric Character: Weak, Confusion, Lethargy Aggravating: Nothing Alleviating: Nothing Associated Signs and Symptoms: Positive: Headache, Confusion, Weakness, Diarrhea - Allergy/Home Medications Allergies/Adverse Reactions: Allergies Allergy/AdvReac Type Severity Reaction Status Date / Time doxycycline AdvReac Intermediate GI Upset Verified 01/30/19 15:44 tetracycline AdvReac Intermediate GI Upset Verified 01/30/19 15:44 Home Medications: Home Medications Gabapentin 300 mg PO BID 01/30/19 [History Confirmed 01/30/19] RiFAMPin CAP* 300 mg PO DAILY 01/30/19 [History Confirmed 01/30/19] Sulfamethox/Trimethoprim DS* [Bactrim DS 800/160 TAB*] 1 tab PO DAILY 01/30/19 [ History Confirmed 01/30/19] PMH/Surg Hx/FS Hx/Imm Hx Previously Healthy: No Endocrine/Hematology History: Denies: Hx Diabetes Cardiovascular History: Reports: Hx Hypertension - ON MEDICATION FOR, Hx Peripheral Vascular Disease - right leg Denies: Hx Pacemaker/ICD Respiratory History: Reports: Hx Sleep Apnea - newly diagnosed, Other Respiratory Problems/Disorders - very hoarse Denies: Hx Asthma GI History: Reports: Hx Gastroesophageal Reflux Disease, Hx Irritable Bowel Denies: Other GI Disorders History: Denies: Hx Renal Disease Musculoskeletal History: Reports: Hx Arthritis - hands, Hx Bursitis, Hx Tendonitis - arms, Other Musculoskeletal History - RIGHT FOOT DROP FOOT after back surgery Sensory History: Reports: Hx Contacts or Glasses - glasses Denies: Hx Hearing Aid Opthamlomology History: Reports: Hx Contacts or Glasses - glasses Neurological History: Reports: Other Neuro Impairments/Disorders - right foot drop Psychiatric History: Reports: Hx Anxiety - on meds, Hx Depression - ON MEDICATION, Hx Panic Disorder - Cancer History Cancer Type, Location and Year: Lung ca - Surgical History Surgery Procedure, Year, and Place: BACK SURGERY-[facility]. TUBAL LIGATION. TONSILLECTOMY. LEFT KNEE ARTHROSCOPY X 2. GALLBLADER REMOVED. RIGHT FOOT REMOVAL OF PLANTAR WART. RIGHT TOE STRAIGHTENED Hx Anesthesia Reactions: No Infectious Disease History: No Infectious Disease History: Denies: Traveled Outside the [place] in Last 30 Days - Family History Known Family History: Positive: Non-Contributory - Social History Alcohol Use: None Substance Use Type: Reports: None Hx Tobacco Use: Yes Smoking Status (MU): Heavy Every Day Tobacco Smoker Type: Cigarettes Amount Used/How Often: pack a day for 49yrs Have You Smoked in the Last Year: Yes Review of Systems Positive: Abdominal Pain, Diarrhea Neurological: Other - Sleepy, confusion Positive: Headache All Other Systems Reviewed And Are Negative: Yes Physical Exam - Summary Physical Exam Summary: Appearance: The patient is well-nourished in no acute distress and in no acute pain. Skin: The skin is warm and dry and skin color reflects adequate perfusion. HEENT: Pupils are 1-2mm and reactive. Neck: The neck is supple with full range of motion and non-tender. There are no carotid bruits. There is no neck vein distension. Respiratory: Chest is non-tender. Lungs are clear to auscultation and breath sounds are symmetrical and equal. Cardiovascular: Heart is regular rate and rhythm. There is no murmur or rub auscultated. There is no peripheral edema and pulses are symmetrical and equal. Abdomen: The abdomen is soft and non-tender. There are normal bowel sounds heard in all four quadrants and there is no organomegaly palpated. Musculoskeletal: There is no back tenderness noted. Extremities are non-tender with full range of motion. There is good capillary refill. There is no peripheral edema or calf tenderness elicited. Neurological: Drowsy, arouses to voice reasoning Psychiatric: The patient has an appropriate affect and does not exhibit any anxiety or depression. GCS: 14 Triage Information Reviewed: Yes Vital Signs On Initial Exam: Initial Vitals Temp Pulse Resp BP Pulse Ox 97.5 F 86 18 97/62 92 01/30/19 15:36 01/30/19 15:36 01/30/19 15:36 01/30/19 15:36 01/30/19 15:36 Vital Signs Reviewed: Yes Diagnostics - Vital Signs Vital Signs Temp Pulse Resp BP Pulse Ox 01/30/19 15:36 97.5 F 86 18 97/62 92 - Laboratory Result Diagrams: 01/30/19 17:43 01/30/19 17:43 Lab Statement: Any lab studies that have been ordered have been reviewed, and results considered in the medical decision making process. - CT Brain CT Interpretation Completed By: Radiologist Summary of CT Findings: NO ACUTE INTRACRANIAL PATHOLOGY. Dr. Burnett has reviewed this radiology report. - EKG 1810 Cardiac Rate: NL - 83 BPM EKG Rhythm: Sinus Rhythm ST Segment: Normal Ectopy: None Summary of EKG Findings: Normal sinus rhythm at 83 BPM, normal ST, no ectopy, no STEMI Re-Evaluation - Re-Evaluation First Eval Re-Evaluation Time: 18:45 Comment: Discussed results with patient. Patient will be admitted to [facility] with dx of lithium toxicity. Patient understands and agrees with this plan. Course/Dx - Course Course Of Treatment: Ms. Mansfield was brought in by her . Over the last several days to a week she's been getting more and more lethargic. She sleeping most of the time. She drinks a lot of water when she is awake. She takes a lot of different medications that can make her sleepy and she was placed on a monitor bed and labs were obtained while we observed her. She did wake up some after a couple of hours but still preferred to be asleep. When awake she was somewhat confused. Her lithium level returned at 2.3. Her BUN/ creatinine were 32 and 1.5. The most recent one we have was normal. When she finally was awake she was a little bit tremorous which I do not notice when she was more lethargic. I'm concerned that this is all chronic lithium toxicity and spoke with the hospitalist about having her admitted worked up further. - Diagnoses Provider Diagnoses: [place] toxicity - Physician Notifications Discussed Care Of Patient With: Karma Cox Time Discussed With Above Provider: 18:41 Instructed by Provider To: Admit As Inpatient - Discussed patient case with Dr. Cox who accepted the patient for admission to [facility] Discharge - Sign-Out/Discharge Documenting (check all that apply): Patient Departure - Admit Patient Received Moderate/Deep Sedation with Procedure: No - Discharge Plan Condition: Fair Disposition: ADMITTED TO [facility] Referrals: Milton Cagle MD [Primary Care Provider] - - Billing Disposition and Condition Condition: FAIR Disposition: Admitted to [facility] - Attestation Statements Document Initiated by Kaya: Yes Documenting Scribe: Andry Vargas Provider For Whom Kaya is Documenting (Include Credential): Cj Burnett MD Scribe Attestation: I, Andry Vargas, scribed for Cj Burnett MD on 01/30/19 at 2053. Scribe Documentation Reviewed: Yes Provider Attestation: The documentation as recorded by the Andry barrera accurately reflects the service I personally performed and the decisions made by me, Cj Burnett MD Status of Scribe Document: Viewed
[2019-01-30] MEDS ORDERED: NS 0.9% 1000 ML** 1,000 ML IV ONE (17:07)
[2019-01-30 17:51] LABS: ABS Basophils 0.1 10^3/ul (0-0.2); ABS Eosinophils 0.2 10^3/ul (0-0.6); ABS Lymphocytes 0.7 10^3/ul (1.0-4.8); ABS Monocytes 1.1 10^3/ul (0-0.8); ABS Neutrophils 11.5 10^3/ul (1.5-7.7); Eosinophil % 1.5 %; Hematocrit 40 % (35-47); Hemoglobin 13.3 g/dL (12.0-16.0); Lymphocyte % 5.1 %; Mean Corpuscular HGB Conc 33 g/dL (31-36); Mean Corpuscular Hemoglobin 32 pg (27-31); Mean Corpuscular Volume 98 fL (80-97); Mean Platelet Volume 7.9 fL (7.4-10.4); Platelet Count 209 10^3/uL (150-450); Red Blood Count 4.13 10^6 /uL (3.70-4.87); Red Cell Distribution Width 14 % (10-15); White Blood Count 13.5 10^3/uL (3.5-10.8)
[2019-01-30 17:56] LABS: INR 1.06 (0.82-1.09)
[2019-01-30 18:08] LABS: ALT 22 U/L (7-52); AST 18 U/L (13-39); Albumin 3.9 g/dL (3.2-5.2); Albumin/Globulin Ratio 1.1 (1-3); Alkaline Phosphatase 92 U/L (34-104); Anion Gap 3 mmol/L (2-11); BUN/Creatinine Ratio 21.3 (8-20); Blood Urea Nitrogen 32 mg/dL (6-24); CO2 Carbon Dioxide 24 mmol/L (22-32); Calcium 9.7 mg/dL (8.6-10.3); Chloride 106 mmol/L (101-111); EGFR Non-African American 35.5 (>60); Globulin 3.4 g/dL (2-4); Glucose 113 mg/dL (70-100); Potassium 4.5 mmol/L (3.5-5.0); Sodium 133 mmol/L (135-145); Total Protein 7.3 g/dL (6.4-8.9)
[2019-01-30 18:24] LABS: Urine Appearance Cloudy; Urine Bacteria Absent (Absent); Urine Bilirubin Negative (Negative); Urine Blood 1+ (Negative); Urine Color Yellow; Urine Glucose Negative (Negative); Urine Ketones Negative (Negative); Urine Nitrite Negative (Negative); Urine Protein Negative (Negative); Urine Red Blood Cell Trace(0-2/hpf) (Absent); Urine Specific Gravity 1.008 (1.010-1.030); Urine Squamous Epithelial Cell Present (Absent); Urine Urobilinogen Negative (Negative); Urine White Blood Cell Trace(0-5/hpf) (Absent)
[2019-01-30 18:34] LABS: Acetaminophen < 15 mcg/mL; Alcohol < 10 mg/dL (<10); Salicylate < 2.50 mg/dL (<30)
[2019-01-30 18:35] LABS: Lithium 2.23 mmol/L (0.6-1.2)
[2019-01-30 18:38] LABS: Urine Benzodiazepine Screen Presumptive Positive (None Detect); Urine Opiates Screen None Detected (None Detect)
[2019-01-30 18:48] LABS: TSH (Thyroid Stimulating Horm) 4.84 mcIU/mL (0.34-5.60)
[2019-01-30] MEDS ORDERED: Acetaminophen TAB* 325 MG PO PRN (19:51)
[2019-01-30] MEDS ORDERED: busPIRone TAB* 5 MG PO PRN (20:01)
[2019-01-30] MEDS ORDERED: Nicotine Lozenge* mini 2 MG LOZNG.MINI MT PRN (21:05)
[2019-01-30] MEDS: Enoxaparin(*) 30 MG/0.3 ML SYR SUBCUT SCH (22:08)
[2019-01-30] MEDS: Gabapentin CAP(*) 300 MG PO SCH (22:08)
[2019-01-30] MEDS: NS 0.9% 1000 ML** 1,000 ML IV SCH (22:16)
[2019-01-30] MEDS: Nicotine* 4MG (FRUIT FLAVOR) GUM PO PRN (22:23)
[2019-01-30] MEDS: ALPRAZolam TAB* 0.5 MG PO PRN (22:23)
[2019-01-30] MEDS: Melatonin 3 MG TAB PO PRN (22:23)
[2019-01-30 23:44] LABS: BUN/Creatinine Ratio 22.3 (8-20); Calcium 9.3 mg/dL (8.6-10.3); EGFR African American 50.7 (>60); EGFR Non-African American 41.9 (>60); Potassium 4.2 mmol/L (3.5-5.0)
[2019-01-31 00:10] LABS: Lithium 1.94 mmol/L (0.6-1.2)
--- NOTE | 2019-01-31 01:43 | HP ---
HISTORY AND PHYSICAL: DATE OF ADMISSION: 01/30/19 PRIMARY CARE PROVIDER: Dr. Cagle. HUMAN RESOURCES FILE CLERK: Vasquez Mansfield, the patient's . CHIEF COMPLAINT: Confusion. CODE STATUS: DNR. SOURCE OF INFORMATION: HPI is obtained from the patient and family and review of medical charts. She is a poor historian. HISTORY OF PRESENT ILLNESS: This is a 58-year-old female with a past medical history of depression; anxiety; osteomyelitis from chronic right foot ulcer from known right foot drop secondary to back surgery; COPD; nicotine dependence ; sleep apnea; stage I lung cancer recently diagnosed in early 2018, status post radiation therapy only with presumed response and now on surveillance; GERD , who was presenting to the emergency room with lethargy and confusion for 7 to 10 days. Per the patient's , she has been mildly lethargic and sleepier seeming for the past 7 to 10 days, although starting last night she had episodes of acute confusion with nausea, vomiting, diarrhea and abdominal pain. She had a fall in the bathroom without head trauma and then subsequently went to bed. All day today, the patient has been confused and not acting appropriately, unable to complete sentences and she has had a noticeable tremor with significant weakness and thus her decided to bring her to the emergency room. Of note, she has long suffered with depression and anxiety and follows with a psychiatrist at [facility] in [place]. The patient was fairly recently started on lithium, around late 2018. Her primary psychiatrist, because she has had side effects to the lithium, is in the process of tapering her off and starting fluoxetine in its place, she is also on alprazolam standing and olanzapine. The patient and her admit they do not have a good system for her multiple medications. Her daughter was going to start managing as she is nurse, although this has not started. The patient herself is in charge of medications and is unable to tell me the system that she uses. The patient and her both report they are really unsure of how meds had been dispensed in the last 2 weeks. EMERGENCY ROOM COURSE: Blood pressure 97/62, temperature 97.5, heart rate is 86 in sinus, respiratory rate 18, satting 92% on room air. Labs were done, which show leukocytosis of 13, sodium of 133, creatinine mildly elevated at 1.5 from her normal baseline. UA was unremarkable except for 1+ blood. Tox screen was done, which were positive for benzodiazepines of which she is prescribed and cannabis that which she admits to using. Her lithium level was elevated at 2.[address] was done, which showed no acute intracranial pathology. EKG was done, which shows normal sinus rhythm with no ischemia and a QTc of 500. She received 1 L of normal saline and the hospitalist team was asked to evaluate the patient for further evaluation and treatment of presumed lithium toxicity. PAST MEDICAL HISTORY: 1. Depression and anxiety. 2. Chronic low back pain, status post laminectomy, complicated by right foot drop. 3. Chronic right foot ulcer and osteomyelitis, on antibiotics. 4. Newly diagnosed sleep apnea, not on CPAP. 5. Hypertension. 6. Peripheral vascular disease, recently diagnosed in 2019. 7. Stage I right upper lobe lung cancer, status post radiation and treatment only, now on surveillance 8. COPD. 9. Nicotine dependence. PAST SURGICAL HISTORY: 1. Status post cholecystectomy. 2. Status post laminectomy. 3. Status post tubal ligation. 4. Status post tonsillectomy. MEDICATIONS: 1. Olanzapine 10 mg p.o. q.p.m. 2. Alprazolam 1 mg p.o. t.i.d. 3. Fluoxetine 80 mg p.o. q.a.m. 4. Lisinopril 10 mg p.o. q.a.m. 5. [place] carbonate 300 mg p.o. b.i.d. 6. Oxycodone/acetaminophen 1 tab p.o. t.i.d. p.r.n. for pain. 7. Pantoprazole 40 mg p.o. b.i.d. 8. Ranitidine 150 mg p.o. b.i.d. 9. Aspirin 81 mg p.o. q.a.m. 10. Gabapentin 300 mg p.o. b.i.d. 11. Rifampin 300 mg p.o. daily. 12. Bactrim 1 tab p.o. daily. ALLERGIES: DOXYCYCLINE and TETRACYCLINE. FAMILY HISTORY: Mother with heart disease and father with diabetes. SOCIAL HISTORY: She is a disabled woman who lives with her . Daughter is a registered nurse and lives nearby. Tobacco history, she is a 1 pack per day smoker for 50 years, currently smoking. Alcohol, none. Illicits, cannabis intermittently, never history of other illicit or IV drug use. REVIEW OF SYSTEMS: Constitutional: Positive for malaise and lethargy over 2 to 3 weeks. Negative for fevers, chills. HEENT: Negative for headaches, vision changes, sore throat. Cardiovascular: Negative for chest pain, palpitations, orthopnea. Respiratory: Negative for acute shortness of breath, positive for cough, which is chronic and negative for pleuritic chest pain. GI : Positive for 1 day of nausea, vomiting, diarrhea and abdominal pain. No hematemesis or melena. : Negative for dysuria or hematuria. Musculoskeletal : Positive for new fine resting tremor, but negative for myalgias, arthralgias. Positive for weakness, nonfocal. Skin: Negative for new rashes or lesions. Neurologic: Positive for acute confusion. No focal weakness. No numbness and again positive resting fine tremors. Psychiatric: Negative for audio or visual hallucinations, worsening depression, anxiety or suicidal or homicidal ideation. Endocrine: Negative for polyuria or polydipsia. Heme: Negative for easy bruising, bleeding, or lymphadenopathy. Allergy: Negative for new infections. PHYSICAL EXAMINATION GENERAL APPEARANCE: This is a well-developed, well-nourished female lying in stretcher in no acute distress. She is pleasant and interactive although responses are slow. She is oriented to herself, place, and year, but unable to tell me the month, date or the reason she is in the hospital. VITAL SIGNS: At the time of physical exam, blood pressure is 112/65, temperature 98.7, heart rate 80, respiratory rate 16, oxygen saturation 93% on room air. HEENT: Her pupils are equal and reactive. Her extraocular muscles are intact. Her sclerae are tyler, but without icterus. Mouth shows dry mucous membranes. Otherwise no oral lesions. NECK: Supple with no supraclavicular or cervical lymphadenopathy. RESPIRATORY: She has coarse lung sounds throughout with no wheezing and no focal consolidations or crackles. CARDIAC: She has regular rate and rhythm with no murmurs rubs or gallops. ABDOMEN: Her belly is soft, nontender, nondistended with normoactive bowel sounds. SKIN: She has no rashes or lesions. MUSCULOSKELETAL: She moves all 4 limbs spontaneously without pain. Full range of motion. EXTREMITIES: Bilateral 2+ palpable pulses in the lower extremities. She is warm and well perfused without edema. NEURO: Cranial nerves II through XII are intact. She is A and O x2 to 3, needing frequent reminding with slow delayed responses. Finger to nose testing is intact. Gait is not observed. She does have a noticeable resting tremor in bilateral lower extremities worse with intention. PSYCHIATRIC: She is appropriate, but does not endorse suicidal ideation or homicidal ideation and reports this is not intentional. DIAGNOSTIC STUDIES/LAB DATA: CBC: Shows white blood cell count of 13.5, hemoglobin 13.3, hematocrit 40, platelets 209. CMP: Sodium 133, potassium 4.5 , chloride 106, carbon dioxide 24, BUN 32, creatinine 1.5, glucose 113. Lactic acid 0.6. Calcium 9.7. Total bilirubin 0.5, AST 18, ALT 22, alkaline phosphatase 92, ammonia 34. Troponin 0. TSH 4.84. Tox: [place] is 2.23, salicylates flat, acetaminophen flat, serum alcohol less than 10. Urine tox shows presumptive positive benzodiazepines and cannabinoids. Otherwise negative. UA with 1+ blood and otherwise unremarkable. Imaging: CT head shows no acute intracranial pathology. EKG shows normal sinus rhythm with prolonged QTc to 500. No signs of ischemia. Imaging, labs and EKG reviewed by myself. ASSESSMENT AND PLAN: This is a 58-year-old female with a past medical history of depression; anxiety; osteomyelitis from chronic foot ulcer in the setting of known right foot drop; sleep apnea; chronic obstructive pulmonary disease; nicotine dependence; recently diagnosed stage I lung cancer, status post radiation, completed in November 2018, who is presenting with subacute lethargy and acute nausea, vomiting, diarrhea and confusion, found to have elevated lithium level associated with acute kidney injury and hyponatremia. 1. [place] toxicity. [place] level is 2.23. Dialysis typically not indicated unless greater than 3.5. She has mild systemic symptoms of toxicity including tremor, acute kidney injury, and confusion along with nausea, vomiting and diarrhea. The patient has been given 1 L of normal saline. In the emergency room, we will continue normal saline at 2 times maintenance dose for an additional 3 L and carefully follow levels. We will place the patient on telemetry and perform daily EKGs to watch QTc. Can discontinue these measures when lithium level has fallen less than 1.5. Poison Control contacted in ER and follow along with her case. 2. Hyponatremia. We will assume this as hypovolemia hyponatremia given her exam although we will need to watch closely if there is any possible lithium- induced diabetes insipidus, which would cause hypernatremia, continue IV fluids and monitor sodium levels. 3. Acute kidney injury. As above, possibly lithium toxicity versus prerenal in the setting of hypovolemia. We will continue IV fluids and discontinue her home lisinopril. 4. Depression/anxiety. The patient has had numerous treatments and follows with psychiatry, believes to have been started on lithium within the last year and it is being currently tapered off, may benefit from psychiatric consult in the future if there is any acute destabilization. Will likely benefit from home nursing given difficulty keeping up with her polypharmacy. We will continue her Prozac at a dose of 60 mg, which is reduced from 80 mg given QTc. We will hold nighttime olanzapine given QTc prolongation risk. The patient takes Xanax 1 mg b.i.d. We will dose reduce to 0.5 mg b.i.d. p.r.n. given confusion. Can supplement with p.r.n. Atarax and possibly BuSpar if needed in the future. Discussed with the patient and her concerns with polypharmacy. 5. Chronic osteo. The patient is on rifampin and Bactrim, we will continue. Has had pain control with opiates in the past for chronic osteo, but we will hold given altered mental status off her Tylenol and hold on nonsteroidal antiinflammatories given URIEL. She has no evidence of these in the tox screen. 6. Gastroesophageal reflux disease. Dose reduced of pantoprazole from 40 mg p.o. b.i.d. to once daily given acute kidney injury and we will hold ranitidine. 7. Sleep apnea. The patient is noncompliant with CPAP at home, although she reports we will try. We will offer in hospital CPAP at pressure of 5. 8. Hypertension. We will hold lisinopril and can treat p.r.n. with calcium channel baltazar or hydralazine if systolic blood pressure is greater than 140. 9. Peripheral vascular disease. Continue aspirin. 10. Polypharmacy as above. 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 She has significant polypharmacy. Determine if psych consult is appropriate when mental status clears. 11. History of lung cancer. No active issues at this time. 12. Nicotine dependence: Offer replacement therapy 12. DVT prophylaxis: The patient is placed on Lovenox renally dosed given cancer history. 13. FEN: We will place her on a renal diet. 14. Disposition. The patient is stable for medical floor and telemetry monitoring. 15. Code status: The patient is DNR/DNI. This is confirmed with and MOLST completed at the bedside. TIME SPENT: Forty-five minutes was spent at the time of this admission with over half of that spent directly at the bedside with the patient providing direct patient care. Plan of care was discussed with the patient and her . They are in agreeance and have no further questions. [id number]/CPS #: [id number] MTDD
[2019-01-31] MEDS: NS 0.9% 1000 ML** 1,000 ML IV SCH ×2 (03:34→12:05)
[2019-01-31 05:54] LABS: ABS Eosinophils 0.3 10^3/ul (0-0.6); ABS Lymphocytes 0.9 10^3/ul (1.0-4.8); ABS Monocytes 0.9 10^3/ul (0-0.8); ABS Neutrophils 8.5 10^3/ul (1.5-7.7); Eosinophil % 2.6 %; Hematocrit 37 % (35-47); Hemoglobin 12.4 g/dL (12.0-16.0); Lymphocyte % 8.7 %; Mean Corpuscular HGB Conc 33 g/dL (31-36); Mean Corpuscular Hemoglobin 32 pg (27-31); Mean Corpuscular Volume 97 fL (80-97); Mean Platelet Volume 7.8 fL (7.4-10.4); Platelet Count 191 10^3/uL (150-450); Red Blood Count 3.84 10^6 /uL (3.70-4.87); Red Cell Distribution Width 14 % (10-15); White Blood Count 10.7 10^3/uL (3.5-10.8)
[2019-01-31 06:20] LABS: BUN/Creatinine Ratio 22.4 (8-20); EGFR African American 70.3 (>60); EGFR Non-African American 58.1 (>60); Potassium 3.8 mmol/L (3.5-5.0)
[2019-01-31] MEDS ORDERED: Sulfamethox/Trimethoprim DS 800/160* TAB PO SCH (09:00)
[2019-01-31] MEDS ORDERED: RiFAMPin CAP* 300 MG CAP PO SCH (09:00)
[2019-01-31] MEDS: Pantoprazole TAB * 40 MG TAB PO SCH (09:15)
[2019-01-31] MEDS: Aspirin 81 mg CHEW TAB* 81 MG TAB.CHEW PO SCH (09:15)
[2019-01-31] MEDS: FLUoxetine CAP* 20 MG PO SCH (09:16)
[2019-01-31] MEDS: Gabapentin CAP(*) 300 MG PO SCH ×2 (09:16→20:54)
[2019-01-31] MEDS: Nicotine PATCH 21 MG/24 HR* PATCH TRANSDERM SCH (09:18)
[2019-01-31 11:56] LABS: Lithium 1.71 mmol/L (0.6-1.2)
--- NOTE | 2019-01-31 16:27 | PN ---
Subjective Interval History: No acute events overnight, afebrile Chief complaint currently short term memory lapses, does not remember her fall or reported n/v/abd pain. tremulous still. recently started on rifampin and reordered bactrim on 01/27 by ID for her right 1st toe infection (chronic) no chest pain, sob, cough, abdominal pain Objective Active Medications: Acetaminophen (Tylenol Tab*) 650 mg PO Q4H PRN PRN Reason: FEVER/PAIN Alprazolam (Xanax Tab*) 0.5 mg PO BID PRN PRN Reason: ANXIETY Last Admin: 01/30/19 22:23 Dose: 0.5 mg Aspirin (Aspirin 81 Mg Chew Tab*) 81 mg PO QAM [facility] Last Admin: 01/31/19 09:15 Dose: 81 mg Buspirone HCl (Buspar Tab*) 5 mg PO TID PRN PRN Reason: ANXIETY/INSOMNIA Enoxaparin Sodium (Lovenox(*)) 30 mg SUBCUT Q24H [facility] Last Admin: 01/30/19 22:08 Dose: 30 mg Fluoxetine HCl (Prozac Cap*) 60 mg PO DAILY [facility] Last Admin: 01/31/19 09:16 Dose: 60 mg Gabapentin (Neurontin Cap(*)) 300 mg PO BID [facility] Last Admin: 01/31/19 09:16 Dose: 300 mg Hydroxyzine HCl (Atarax Tab*) 25 mg PO Q4H PRN PRN Reason: ANXIETY Melatonin (Melatonin) 3 mg PO BEDTIME PRN PRN Reason: SLEEP Last Admin: 01/30/19 22:23 Dose: 3 mg Nicotine (Nicotine Patch 21 Mg/24 Hr*) 1 patch TRANSDERM DAILY@0800 [facility] Last Admin: 01/31/19 09:18 Dose: 1 patch Nicotine Polacrilex (Nicotine Gum*) 4 mg PO Q2H PRN PRN Reason: CRAVING Last Admin: 01/30/19 22:23 Dose: 4 mg Nicotine Polacrilex (Nicotine Lozenge Mini) 2 mg MT Q2H PRN PRN Reason: CRAVING Ondansetron HCl (Zofran Inj*) 4 mg IV Q8H PRN PRN Reason: NAUSEA Pantoprazole Sodium (Protonix Tab*) 40 mg PO DAILY [facility] Last Admin: 01/31/19 09:15 Dose: 40 mg Pharmacy Profile Note (Nicotine Patch Removal Note*) 1 note FOLLOW UP 2100 [place] Rifampin (Rifampin Cap*) 300 mg PO DAILY [facility] Last Admin: 01/31/19 09:14 Dose: 300 mg Trimethoprim/Sulfamethoxazole (Bactrim Ds 800/160 Tab*) 1 tab PO DAILY [facility] Last Admin: 01/31/19 09:14 Dose: 1 tab Vital Signs - 8 hr 01/31/19 01/31/19 01/31/19 09:16 11:00 12:05 Temperature 98.8 F Pulse Rate 76 Respiratory 16 20 16 Rate Blood Pressure 107/55 (mmHg) O2 Sat by Pulse 93 Oximetry Oxygen Devices in Use Now: None Appearance: NAD Eyes: No Scleral Icterus Ears/Nose/Mouth/Throat: NL Teeth, Lips, Gums Neck: NL Appearance and Movements; NL JVP Respiratory: Symmetrical Chest Expansion and Respiratory Effort Cardiovascular: NL Sounds; No Murmurs; No JVD Abdominal: - - soft, non tender, obese. Extremities: No Edema, - - left 1st toe with slight purple dicoloration and lateral deviation with small ulcer with what looks like cotton packed in it. Skin: - - ulcer as above. Neurological: - - oriented to name. hospital, year. tremulous. CNII-XII intact. Nutrition: Taking PO's Result Diagrams: 01/31/19 05:19 01/31/19 05:19 Assess/Plan/Problems-Billing Assessment: 58 yo female PMH anxiety, depression, COPD, chronic left 1st toe wounds ( recently started rifampin and bactrim) p/w AMS, tremulousness, elevated lithium levels and URIEL. Slowly improving. - Patient Problems (1) [place] toxicity Current Visit: Yes Status: Acute Code(s): T56.891A - TOXIC EFFECT OF OTH METALS, ACCIDENTAL (UNINTENTIONAL), INIT SNOMED Code(s): 904553127 Comment: potentially worsened by URIEL as cleared unchanved via urinary excretion. half life is 18=36 hours. downtrending steadily. continue mIVF. check daily. monitor on telemetry. Follow-up with Dr. Trejo upon discharge. (2) Osteomyelitis of great toe of right foot Current Visit: Yes Status: Acute Code(s): M86.9 - OSTEOMYELITIS, UNSPECIFIED SNOMED Code(s): 999801920 Comment: Curbside talk with Dr. Ruano. Pt recently seen in ID clinic and restarted on bactrim (previously had 14 day course 11/30; then 21 day course starting 01/06) and added new rifampin. Jered suggested hold both in setting of URIEL. add CRP. e/o OM on tuft of toe on MRI 01/13 f/u with Podiatry vs ortho as outpatient. (3) URIEL (acute kidney injury) Current Visit: Yes Status: Acute Code(s): N17.9 - ACUTE KIDNEY FAILURE, UNSPECIFIED SNOMED Code(s): 38273777 Comment: improving, coninue ivf and avoidance of potentially nephrotoxic agents like bactrim/ rifampin. (4) Anxiety and depression Current Visit: Yes Status: Acute Code(s): F41.9 - ANXIETY DISORDER, UNSPECIFIED; F32.9 - MAJOR DEPRESSIVE DISORDER, SINGLE EPISODE, UNSPECIFIED SNOMED Code(s): 603048791 Comment: continue buspar continue prozac at reduced dose of 60mg daily. (5) Lung cancer Current Visit: Yes Status: Acute Code(s): C34.90 - MALIGNANT NEOPLASM OF UNSP PART OF UNSP BRONCHUS OR LUNG SNOMED Code(s): 371577738 Comment: stable. (6) DVT prophylaxis Current Visit: Yes Status: Acute Code(s): Z29.9 - ENCOUNTER FOR PROPHYLACTIC MEASURES, UNSPECIFIED SNOMED Code(s): 495313137 Comment: lovenox 40mg daily. Status and Disposition: medicine inpatient, awaiting lithium toxicity to wash out.
[2019-01-31] MEDS: Enoxaparin(*) 30 MG/0.3 ML SYR SUBCUT SCH (20:54)
[2019-01-31] MEDS: Ondansetron INJ* 2 MG/ML VIAL IV PRN (20:55)
[2019-01-31] MEDS: Melatonin 3 MG TAB PO PRN (20:57)
[2019-01-31] MEDS: ALPRAZolam TAB* 0.5 MG PO PRN (20:57)
[2019-01-31] MEDS: Nicotine Patch Removal NOTE FOLLOW UP SCH (20:59)
[2019-02-01] MEDS: Ondansetron INJ* 2 MG/ML VIAL IV PRN ×3 (04:10→18:56)
[2019-02-01] MEDS: Nicotine* 4MG (FRUIT FLAVOR) GUM PO PRN (04:19)
[2019-02-01] MEDS: hydrOXYzine HCL TAB* 25 MG PO PRN (04:21)
[2019-02-01 06:38] LABS: Lithium 1.06 mmol/L (0.6-1.2)
[2019-02-01 06:39] LABS: BUN/Creatinine Ratio 17.7 (8-20); C Reactive Protein 17.33 mg/L (<8.01); Calcium 9.5 mg/dL (8.6-10.3); EGFR African American 90.1 (>60); EGFR Non-African American 74.5 (>60); Potassium 3.9 mmol/L (3.5-5.0)
[2019-02-01] MEDS: Nicotine PATCH 21 MG/24 HR* PATCH TRANSDERM SCH (07:46)
[2019-02-01] MEDS: FLUoxetine CAP* 20 MG PO SCH (07:46)
[2019-02-01] MEDS: Aspirin 81 mg CHEW TAB* 81 MG TAB.CHEW PO SCH (07:47)
[2019-02-01] MEDS: Gabapentin CAP(*) 300 MG PO SCH ×2 (07:47→19:54)
[2019-02-01] MEDS: ALPRAZolam TAB* 0.5 MG PO PRN (07:47)
[2019-02-01] MEDS: Pantoprazole TAB * 40 MG TAB PO SCH (07:47)
--- NOTE | 2019-02-01 12:50 | CONS ---
CONSULTATION REPORT: DATE OF CONSULT: 02/01/19 REQUESTING PROVIDER: Adelia Cronin NP. CONSULTING SERVICE: Infectious disease. REASON FOR CONSULT: Foot infection and acute kidney injury. IMPRESSION: 1. Acute kidney injury, which is resolving and lithium toxicity also resolving. She has been on a pr olonged course of Bactrim, which may have precipitated an acute kidney injury. Rifampin does not int erfere with lithium metabolism, so timing is probably coincidental. 2. Chronic osteomyelitis, right great toe, treated with multiple antibiotic courses in the past and with some fusion hardware present. Amputation had been recommended by orthopedics. She has currentl y declined that option. 3. Obesity. 4. Lung cancer, treated with radiation. 5. Peripheral vascular disease. RECOMMENDATIONS: We will hold her oral antibiotics for now as her current metabolic abnormalities se ttle out. Once she is ready for discharge, we will aim for IV antibiotics again. She has grown Stap h lugdunensis and Staph aureus from the toe over approximately the last year. We will plan on cefazo cee at home assuming we can arrange that. HISTORY OF PRESENT ILLNESS: This is a 58-year-old woman with right toe infection and ulcer, which sapp s been ongoing for over the last year and had courses of antibiotics and wound therapy and recommende d the patient for a surgical procedure, which she declined and then in absence of that, recommendatio n of amputation which she prefers to avoid. She comes in now with altered mental status, creatinine of 1.5, CRP of 17, lithium level of 2.2. Her mental status is improving. Today, she has had some vo miting, has not had a bowel movement in about 3 days, not passing gas much today. Had some breakfast this morning, not hungry now. There has been no change in her toe that she is aware of. PAST MEDICAL HISTORY: 1. Chronic osteomyelitis, right great toe. 2. Fixation of the right great toe in the distant past. 3. Depression. 4. Anxiety. 5. Low back pain, status post laminectomy and now a right footdrop. 6. Obstructive sleep apnea. 7. Hypertension. 8. Peripheral vascular disease. 9. Stage I lung cancer, treated with radiation. 10. COPD. 11. Nicotine dependence. PAST SURGICAL HISTORY: 1. Status post cholecystectomy. 2. Status post lumbar laminectomy. 3. Status post tubal ligation. 4. Status post tonsillectomy and adenoidectomy. ALLERGIES: DOXYCYCLINE and TETRACYCLINE. MEDICATIONS: 1. Tylenol. 2. Xanax. 3. Aspirin. 4. BuSpar. 5. Fluoxetine. 6. Enoxaparin. 7. Gabapentin. 8. Hydroxyzine. 9. Melatonin. 10. Nicotine gum. 11. Nicotine lozenges. 12. Nicotine patch. 13. Ondansetron. 14. Pantoprazole. SOCIAL HISTORY: She is a smoker, lives with her . Does not drink alcohol. Uses cannabis occa sionally. No injection drugs. FAMILY HISTORY: Mother had heart disease and father has diabetes. REVIEW OF SYSTEMS: A 12-point review was all negative, except as noted above in the history of prese nt illness. PHYSICAL EXAM: Vital Signs: Temperature 36.5, heart rate is 80, respiratory rate 19, blood pressure 115/64, oxygen saturation is 96% on room air. In general, she is awake, not in distress. Neurologi c: She is oriented x3. Follows all commands. Moves all her extremities. Sensation is decreased to light touch in both feet. There is a right footdrop. HEENT: There is no conjunctival hemorrhage. Or opharynx without lesions. Neck is supple without mass. Heart is regular rate and rhythm without mur murs, rubs, or gallops. Lungs are clear to auscultation bilaterally. Abdomen: Soft, nontender, non distended. Bowel sounds are present. Skin: There is no rash or splinter hemorrhage. Musculoskeleta l: There is no spine tenderness to palpation. Right great toe, there is trace erythema and edema, w ith plantar and lateral deviation. LABORATORY DATA: White blood cell count 10, hemoglobin 12, platelets 191. Creatinine is 0.7. Please see impression and recommendations outlined above, which I have discussed with Adelia payne NP. Thank you for asking me to see Ms. Mansfield in consultation. [id number]/[facility] #: [id number]
[2019-02-01] MEDS ORDERED: PROCHLORPERAZINE INJ 5 MG/ML 2 ML VIAL IM PRN (16:24)
--- NOTE | 2019-02-01 17:30 | PN ---
Subjective Date of Service: 02/01/19 Interval History: Resting in bed on assessment. Reports she has had nausea and abd pain ever since taking Buspar this morning. Reports she is not passing gas and last BM was 4 days ago (reports she usually goes every 3 to 4 days). Denies cp, sob, palpitation, diarrhea, fever, chills, confusion Objective Active Medications: Acetaminophen (Tylenol Tab*) 650 mg PO Q4H PRN PRN Reason: FEVER/PAIN Alprazolam (Xanax Tab*) 0.5 mg PO BID PRN PRN Reason: ANXIETY Last Admin: 02/01/19 07:47 Dose: 0.5 mg Aspirin (Aspirin 81 Mg Chew Tab*) 81 mg PO QAM [facility] Last Admin: 02/01/19 07:47 Dose: 81 mg Buspirone HCl (Buspar Tab*) 5 mg PO TID PRN PRN Reason: ANXIETY/INSOMNIA Last Admin: 02/01/19 10:06 Dose: 5 mg Enoxaparin Sodium (Lovenox(*)) 30 mg SUBCUT Q24H [facility] Last Admin: 01/31/19 20:54 Dose: 30 mg Fluoxetine HCl (Prozac Cap*) 60 mg PO DAILY [facility] Last Admin: 02/01/19 07:46 Dose: 60 mg Gabapentin (Neurontin Cap(*)) 300 mg PO BID [facility] Last Admin: 02/01/19 07:47 Dose: 300 mg Hydroxyzine HCl (Atarax Tab*) 25 mg PO Q4H PRN PRN Reason: ANXIETY Last Admin: 02/01/19 04:21 Dose: 25 mg Melatonin (Melatonin) 3 mg PO BEDTIME PRN PRN Reason: SLEEP Last Admin: 01/31/19 20:57 Dose: 3 mg Nicotine (Nicotine Patch 21 Mg/24 Hr*) 1 patch TRANSDERM DAILY@0800 [facility] Last Admin: 02/01/19 07:46 Dose: 1 patch Nicotine Polacrilex (Nicotine Gum*) 4 mg PO Q2H PRN PRN Reason: CRAVING Last Admin: 02/01/19 04:19 Dose: 4 mg Nicotine Polacrilex (Nicotine Lozenge Mini) 2 mg MT Q2H PRN PRN Reason: CRAVING Ondansetron HCl (Zofran Inj*) 4 mg IV Q8H PRN PRN Reason: NAUSEA Last Admin: 02/01/19 11:50 Dose: 4 mg Pantoprazole Sodium (Protonix Tab*) 40 mg PO DAILY [facility] Last Admin: 02/01/19 07:47 Dose: 40 mg Pharmacy Profile Note (Nicotine Patch Removal Note*) 1 note FOLLOW UP 2100 [facility] Last Admin: 01/31/19 20:59 Dose: 1 note Prochlorperazine Edisylate (Compazine Inj*) 5 mg IM Q6H PRN PRN Reason: NAUSEA Last Admin: 02/01/19 16:50 Dose: 5 mg Vital Signs - 8 hr 02/01/19 02/01/19 11:00 11:16 Temperature 98.6 F Pulse Rate 72 Respiratory 19 20 Rate Blood Pressure 127/68 (mmHg) O2 Sat by Pulse 92 Oximetry Oxygen Devices in Use Now: None Appearance: Comfortable, NAD Eyes: No Scleral Icterus, PERRLA Ears/Nose/Mouth/Throat: Clear Oropharnyx, Mucous Membranes Moist Respiratory: Symmetrical Chest Expansion and Respiratory Effort, Clear to Auscultation Cardiovascular: NL Sounds; No Murmurs; No JVD, RRR, No Edema Abdominal: NL Sounds; No Tenderness; No Distention Lymphatic: No Cervical Adenopathy Extremities: No Clubbing, Cyanosis Skin: No Rash or Ulcers Neurological: Alert and Oriented x 3 Nutrition: Taking PO's Result Diagrams: 01/31/19 05:19 02/01/19 05:36 Additional Lab and Data: Laboratory Results - last 24 hr 02/01/19 05:36 Sodium 134 L Potassium 3.9 Chloride 108 Carbon Dioxide 21 L Anion Gap 5 BUN 14 Creatinine 0.79 Est GFR ( Amer) 90.1 Est GFR (Non-Af Amer) 74.5 BUN/Creatinine Ratio 17.7 Glucose 114 H Calcium 9.5 C-Reactive Protein 17.33 H [place] 1.06 Microbiology and Other Data: Microbiology 01/30/19 17:58 Urine Culture - Final Urine Assess/Plan/Problems-Billing Assessment: 58 yo female PMH anxiety, depression, COPD, chronic left 1st toe wounds ( recently started rifampin and bactrim) p/w AMS, tremulousness, elevated lithium levels and URIEL. Slowly improving. - Patient Problems (1) Toxic encephalopathy Comment: - Improving - Secondary to [place] Toxicity (2) Nausea & vomiting Comment: - Occasional nausea and vomiting since this morning - Patient attributed it to buspar; Buspar discontinued - Due to last BM being 4 days ago xray obtained and no evidence of SBO - Add bowel regime (3) [place] toxicity Comment: - Improved as [place] level is 1.06 - Will not restart [place]. Discussed with Dr Martell and best option is for patient to follow up with Dr Trejo at discharge. Dr Martell also recommended restarting Zyprexa instead of Buspar - [place] toxicity secondary to URIEL secondary to medications for chronic osteo; Dr Roberson consulting and discussed possible PICC and IV abx instead of continue previous PO as they could be the culprit. - [place] toxicity could have also been due to poor compliance. Patient has noted short term memory issues which she admits to and nurses have noticed. Patient's daughters will help dispense medicatons per CW - No longer needs serial EKGs as [place] level is normal and Qtc less than 500 today (4) URIEL (acute kidney injury) Comment: - Creatinine improving - Possibly secondary to bactrim/rifampin treatment which she was on at home. Dr Roberson consulting for alternative agents for chronic osteo (5) Anxiety and depression Comment: - Stop buspar - Continue prozac at reduced dose of 60mg daily - Cont Xanax at reduced dose. - Resume Zyprexa (6) Osteomyelitis of great toe of right foot Comment: - Dr Roberson consulting. - Will most likely stop Bactrim and Rifampin as they could have contributed to URIEL. Discussed possible PICC with IV abx. (7) Lung cancer Comment: - Stable; Follow up with PCP (8) DVT prophylaxis Comment: - Lovenox 30mg daily. Status and Disposition: medicine inpatient, awaiting lithium toxicity to wash out. Attending: Lion Dyson
[2019-02-01] MEDS ORDERED: Senna TAB PO PRN (17:46)
--- NOTE | 2019-02-01 17:48 | CONSULT ---
Subjective Date of Service: 02/01/19 Interval History: Ms. Mansfield is a 58 yo female with PMH significant for depression, anxiety, right foot droop secondary to back surgery, COPD, tobacco abuse, [place], lung cancer s/p radiation therapy, GERD, PVD, and right 1st toe chronic wound and osteomyelitis who presented to the emergency room with complaints of confusion and lethargy. She was found to have lithium toxicity. Ms. Mansfield is a patient of the [facility] and does packing changes to the wound on her right 1st toe every other day. She reports that the packing in place today has not been changed for 5 days. Patient seen and examined at bedside. Family History: Unchanged from Admission Social History: Unchanged from Admission Past Medical History: Unchanged from Admission Review of Systems - Measurements Intake and Output: Intake and Output Last 24 Hours 01/30/19 01/31/19 02/01/19 02/02/19 06:59 06:59 06:59 06:59 Intake Total 1979 1830 480 Output Total 0 0 Balance 19790 480 Weight 202 lb 3.2 oz Intake: IV Fluids 1979 1010 NS (0.9%) 980 1010 Oral 0 820 480 Output: Urine 0 0 Other: Estimated Void Large Medium # Voids 1 2 - Review of Systems Constitutional Symptoms: Negative: Fever, Other - Chills Dermatology: Positive: Other - Chronic wound to right 1st toe Gastroenterology: Positive: Nausea, Vomiting Objective Active Medications: Acetaminophen (Tylenol Tab*) 650 mg PO Q4H PRN Reason: FEVER/PAIN Alprazolam (Xanax Tab*) 0.5 mg PO BID PRN Reason: ANXIETY Aspirin (Aspirin 81 Mg Chew Tab*) 81 mg PO QAM [facility] Buspirone HCl (Buspar Tab*) 5 mg PO TID PRN Reason: ANXIETY/INSOMNIA Enoxaparin Sodium (Lovenox(*)) 30 mg SUBCUT Q24H [facility] Fluoxetine HCl (Prozac Cap*) 60 mg PO DAILY [facility] Gabapentin (Neurontin Cap(*)) 300 mg PO BID [facility] Hydroxyzine HCl (Atarax Tab*) 25 mg PO Q4H PRN Reason: ANXIETY Melatonin (Melatonin) 3 mg PO BEDTIME PRN Reason: SLEEP Nicotine (Nicotine Patch 21 Mg/24 Hr*) 1 patch TRANSDERM DAILY@0800 [facility] Nicotine Polacrilex (Nicotine Gum*) 4 mg PO Q2H PRN Reason: CRAVING Nicotine Polacrilex (Nicotine Lozenge Mini) 2 mg MT Q2H PRN Reason: CRAVING Ondansetron HCl (Zofran Inj*) 4 mg IV Q8H PRN Reason: NAUSEA Pantoprazole Sodium (Protonix Tab*) 40 mg PO DAILY [facility] Pharmacy Profile Note (Nicotine Patch Removal Note*) 1 note FOLLOW UP 2100 [facility] Prochlorperazine Edisylate (Compazine Inj*) 5 mg IM Q6H PRN Reason: NAUSEA Vital Signs - 8 hr 02/01/19 02/01/19 11:00 11:16 Temperature 98.6 F Pulse Rate 72 Respiratory 19 20 Rate Blood Pressure 127/68 (mmHg) O2 Sat by Pulse 92 Oximetry Oxygen Devices in Use Now: None Appearance: NAD, laying in bed Ears/Nose/Mouth/Throat: Mucous Membranes Moist Respiratory: Symmetrical Chest Expansion and Respiratory Effort Skin: - - See skin note below Neurological: Alert and Oriented x 3 Nutrition: Taking PO's Result Diagrams: 01/31/19 05:19 02/04/19 05:43 Microbiology and Other Data: Microbiology 01/30/19 17:58 Urine Culture - Final Urine Diagnostic Imaging: Exam Date: 01/13/19 - MRI LOWER EXTREMITY RIGHT W/WO IMPRESSION: Osteomyelitis involving the tuft of the first distal phalanx with overlying soft tissue inflammatory change. No loculated osseous or soft tissue plane abscess collection evident. Exam Date: 04/22/2018 - CTA ABD Aorta & Runoff IMPRESSION: 1. Mixed attenuation atherosclerosis as described in detail the by the report. The more severe and/or clinically relevant findings are as follows: * There is high-grade stenosis at the distal right common iliac artery extending across the iliac bifurcation of the proximal right external iliac artery. Coarse calcification prevents reliable determination of the exact degree of stenosis. Catheter arteriography will provide superior characterization of the degree of stenosis and also provide the opportunity for intraluminal arterial measurements to determine if there is a clinically significant gradient across the stenosis. * Mild stenosis of the right superficial femoral artery as it enters Benson's canal but luminal patency is maintained. * There is abrupt occlusion of the distal most right anterior tibial artery as it transitions into the dorsalis pedis artery. More distally the distal dorsalis pedis artery appears to fill by collateralized flow provided mainly by branches of the right CHAUFFEUR. * In-line flow is documented in the left lower extremity with likely 2 vessel runoff provided by the FABIO and CHAUFFEUR. 2. CT findings are most consistent with bilateral adrenal adenomas with interval enlargement of the right adrenal adenoma relative to the most recent CT examination dated February 19, 2011. Please correlate to any endocrinologic abnormalities that could be attributed to the patient's adrenal lesions. 3. Likely hepatic steatosis. Skin Deviation Note - Skin Deviation Findings Right medial 1st toe - There is a chronic wound, measuring 0.4 cm x 0.8 cm x 0.8 cm. Unable to visualize the wound base. The surrounding skin is intact. There is mild erythema to the distal end of the toe. The surrounding skin is callus like. Purulent drainage was expressed with the packing removal. Assessment/Plan: Ms. Mansfield is a 58 yo female with PMH significant for depression, anxiety, right foot droop secondary to back surgery, COPD, tobacco abuse, [place], lung cancer s/p radiation therapy, GERD, PVD, and right 1st toe chronic wound and osteomyelitis who presented to the emergency room with complaints of confusion and lethargy. She was found to have lithium toxicity. 1. Chronic right 1st toe wound. Suspect this is a pressure injury as a result of failed hardware in the foot and walking on the side of the foot. Recommend gently placing 1/4 inch iodoform packing into the wound. Change the packing daily. Can cover the wound with a dry dressing. Avoid weight bearing on the area. 2. Chronic osteomyeltis. Has been on multiple courses of ABX. Has been recommended by Orthopedics and Wound Clinic to have an amputation and the patient has declined. Management per ID. Could consider Orthopedic consult to again discuss the option of amputation. 3. Peripheral Vascular Disease. 4. Obesity. BMI 32.6. 5. Diet. Renal diet 6. Code Status. DNR. 7. Disposition. Inpatient, disposition per primary medicine team. TIME SPENT: Time for this wound consultation was 20 minutes and 10 minutes was spent with the patient discussing past medical history; assessing, measuring, and photographing the wound. Wound Problem/Plan Is Patient a Wound Clinic Patient: [facility], Dr. Dia Current Treatment: Calcium alginate, tucked into the wound and change dressing every other day. Attending: Zarina Noriega
[2019-02-01] MEDS: OLANzapine TAB* 10 MG PO SCH (18:56)
[2019-02-01] MEDS: Enoxaparin(*) 30 MG/0.3 ML SYR SUBCUT SCH (19:53)
[2019-02-01] MEDS: Docusate CAP* 100 MG PO SCH (19:54)
[2019-02-01] MEDS: Melatonin 3 MG TAB PO PRN (19:54)
[2019-02-01] MEDS: ALPRAZolam TAB* 0.5 MG PO SCH (19:54)
[2019-02-01] MEDS: Nicotine Patch Removal NOTE FOLLOW UP SCH (19:58)
[2019-02-02] MEDS: Ondansetron INJ* 2 MG/ML VIAL IV PRN ×4 (02:45→19:29)
[2019-02-02 05:46] LABS: BUN/Creatinine Ratio 15.5 (8-20); Calcium 9.9 mg/dL (8.6-10.3); EGFR Non-African American 84.3 (>60); Potassium 3.9 mmol/L (3.5-5.0)
[2019-02-02 06:33] LABS: Lithium 0.79 mmol/L (0.6-1.2)
[2019-02-02] MEDS: Nicotine PATCH 21 MG/24 HR* PATCH TRANSDERM SCH (08:21)
[2019-02-02] MEDS: ALPRAZolam TAB* 0.5 MG PO SCH ×3 (08:22→20:57)
[2019-02-02] MEDS: Pantoprazole TAB * 40 MG TAB PO SCH (09:36)
[2019-02-02] MEDS: Docusate CAP* 100 MG PO SCH ×2 (09:36→20:58)
[2019-02-02] MEDS: Gabapentin CAP(*) 300 MG PO SCH ×2 (09:36→20:58)
[2019-02-02] MEDS: FLUoxetine CAP* 20 MG PO SCH (09:37)
[2019-02-02] MEDS: Aspirin 81 mg CHEW TAB* 81 MG TAB.CHEW PO SCH (09:37)
[2019-02-02] MEDS ORDERED: Lidocaine 2% VISCOUS* 15 ML UDC PO ONE (12:22)
[2019-02-02] MEDS ORDERED: SCOP/HYOS/ATR/PB(NF) 10 ML UDC PO ONE (12:22)
[2019-02-02] MEDS ORDERED: Al Hydrox/Mg Hydrox/Simet LIQ* 30 ML UDC PO ONE (12:22)
[2019-02-02] MEDS: Famotidine TAB* 20 MG PO SCH ×2 (13:52→20:58)
[2019-02-02] MEDS: OLANzapine TAB* 10 MG PO SCH (17:42)
--- NOTE | 2019-02-02 17:59 | PN ---
Subjective Date of Service: 02/02/19 Interval History: Resting in chair on assessment. Reports she feels mildly improved today, but continues to have some nausea. Per nursing patient seems improved in her mentation as short term memory is better today. Patient reports she continues to have some nausea and epigastric pain intermittently. Patient has hx of GERD and has not been getting some of her home medications. Denies cp, sob, weakness, dizziness, diarrhea. Family History: Unchanged from Admission Social History: Unchanged from Admission Past Medical History: Unchanged from Admission Objective Active Medications: Acetaminophen (Tylenol Tab*) 650 mg PO Q4H PRN PRN Reason: FEVER/PAIN Alprazolam (Xanax Tab*) 1 mg PO TID [facility] Last Admin: 02/02/19 13:52 Dose: 1 mg Aspirin (Aspirin 81 Mg Chew Tab*) 81 mg PO QAM [facility] Last Admin: 02/02/19 09:37 Dose: 81 mg Buspirone HCl (Buspar Tab*) 5 mg PO TID PRN PRN Reason: ANXIETY/INSOMNIA Last Admin: 02/01/19 10:06 Dose: 5 mg Docusate Sodium (Colace Cap*) 100 mg PO BID [facility] Last Admin: 02/02/19 09:36 Dose: 100 mg Enoxaparin Sodium (Lovenox(*)) 30 mg SUBCUT Q24H [facility] Last Admin: 02/01/19 19:53 Dose: 30 mg Famotidine (Pepcid Tab*) 20 mg PO BID [facility]; Protocol Last Admin: 02/02/19 13:52 Dose: 20 mg Fluoxetine HCl (Prozac Cap*) 80 mg PO DAILY [facility] Gabapentin (Neurontin Cap(*)) 300 mg PO BID [facility] Last Admin: 02/02/19 09:36 Dose: 300 mg Hydroxyzine HCl (Atarax Tab*) 25 mg PO Q4H PRN PRN Reason: ANXIETY Last Admin: 02/01/19 04:21 Dose: 25 mg Melatonin (Melatonin) 3 mg PO BEDTIME PRN PRN Reason: SLEEP Last Admin: 02/01/19 19:54 Dose: 3 mg Nicotine (Nicotine Patch 21 Mg/24 Hr*) 1 patch TRANSDERM DAILY@0800 [facility] Last Admin: 02/02/19 08:21 Dose: 1 patch Nicotine Polacrilex (Nicotine Gum*) 4 mg PO Q2H PRN PRN Reason: CRAVING Last Admin: 02/01/19 04:19 Dose: 4 mg Nicotine Polacrilex (Nicotine Lozenge Mini) 2 mg MT Q2H PRN PRN Reason: CRAVING Olanzapine (Zyprexa Tab*) 10 mg PO QPM [facility] Last Admin: 02/02/19 17:42 Dose: 10 mg Ondansetron HCl (Zofran Inj*) 4 mg IV Q6H PRN PRN Reason: NAUSEA Last Admin: 02/02/19 13:51 Dose: 4 mg Pantoprazole Sodium (Protonix Tab*) 40 mg PO DAILY [facility] Last Admin: 02/02/19 09:36 Dose: 40 mg Pharmacy Profile Note (Nicotine Patch Removal Note*) 1 note FOLLOW UP 2100 [facility] Last Admin: 02/01/19 19:58 Dose: Not Given Prochlorperazine Edisylate (Compazine Inj*) 5 mg IM Q6H PRN PRN Reason: NAUSEA Last Admin: 02/01/19 16:50 Dose: 5 mg Senna (Senokot Tab*) 2 tab PO BEDTIME PRN PRN Reason: CONSTIPATION Last Admin: 02/01/19 18:56 Dose: 2 tab Vital Signs - 8 hr 02/02/19 02/02/19 02/02/19 11:18 12:18 12:19 Temperature 98.2 F Pulse Rate 74 Respiratory 16 17 17 Rate Blood Pressure 150/83 (mmHg) O2 Sat by Pulse 94 Oximetry 02/02/19 13:52 Temperature Pulse Rate Respiratory 17 Rate Blood Pressure (mmHg) O2 Sat by Pulse Oximetry Oxygen Devices in Use Now: None Appearance: Comfortable, NAD Eyes: No Scleral Icterus, PERRLA Ears/Nose/Mouth/Throat: Clear Oropharnyx, Mucous Membranes Moist Neck: NL Appearance and Movements; NL JVP Respiratory: Symmetrical Chest Expansion and Respiratory Effort, Clear to Auscultation Cardiovascular: NL Sounds; No Murmurs; No JVD, RRR, No Edema Abdominal: NL Sounds; No Tenderness; No Distention Lymphatic: No Cervical Adenopathy Extremities: No Edema Skin: - - Wound to right great toe. Wound care following. Neurological: Alert and Oriented x 3, NL Sensation, NL Muscle Strength and Tone , - - Cranial nerves grossly intact. Coordination intact. No drift. Nutrition: Taking PO's Result Diagrams: 01/31/19 05:19 02/02/19 05:14 Additional Lab and Data: Laboratory Results - last 24 hr 02/02/19 05:14 Sodium 135 Potassium 3.9 Chloride 108 Carbon Dioxide 23 Anion Gap 4 BUN 11 Creatinine 0.71 Est GFR ( Amer) 102.0 Est GFR (Non-Af Amer) 84.3 BUN/Creatinine Ratio 15.5 Glucose 114 H Calcium 9.9 [place] 0.79 Microbiology and Other Data: Microbiology 01/30/19 17:58 Urine Urine Culture - Final Assess/Plan/Problems-Billing Assessment: 58 yo female PMH anxiety, depression, COPD, chronic left 1st toe wounds ( recently started rifampin and bactrim) p/w AMS, tremulousness, elevated lithium levels and URIEL. Slowly improving. - Patient Problems (1) Tremor Comment: - Patient noted to have tremor of bilateral UE today. She reports this has been ongoing for several weeks and she has attributed it to the [place]. - PT/OT ordered - Consider MRI if no improvement tomorrow (2) Toxic encephalopathy Comment: - Improving - Secondary to [place] Toxicity (3) Nausea & vomiting Comment: - Occasional nausea and epigastric pain - Improves with Zofran. Also improved with GI cocktail. - Suspected secondary to GERD as she has not been receiving her home H2 baltazar (which was restarted today) - Small BM today - Add bowel regime (4) [place] toxicity Comment: - Improved as [place] level is 1.06 - Will not restart [place]. Discussed with Dr Martell and best option is for patient to follow up with Dr Trejo at discharge. Dr Martell also recommended restarting Zyprexa instead of Buspar - [place] toxicity secondary to URIEL secondary to medications for chronic osteo; Dr Roberson consulting and discussed possible PICC and IV abx instead of continue previous PO as they could be the culprit. - [place] toxicity could have also been due to poor compliance. Patient has noted short term memory issues which she admits to and nurses have noticed. Patient's daughters will help dispense medicatons per CW - No longer needs serial EKGs as [place] level is normal and Qtc less than 500 today (5) URIEL (acute kidney injury) Comment: - Creatinine wnl - Possibly secondary to bactrim/rifampin treatment which she was on at home. Dr Roberson consulting for alternative agents for chronic osteo. Plan to discharge with PICC and IV abx (6) Anxiety and depression Comment: - Buspar discontinued yesterday - Continue prozac at home dose of 80 mg daily. - Cont Xanax at home dose - Zyprexa resumed yesterday per psych (7) Osteomyelitis of great toe of right foot Comment: - See wound care note - Dr Roberson consulting. - Will most likely stop Bactrim and Rifampin as they could have contributed to URIEL. - Plan for PICC with IV abx at home (8) Lung cancer Comment: - Stable; Follow up with PCP (9) DVT prophylaxis Comment: - Lovenox 30mg daily. Status and Disposition: Inpatient. DC home when stable. Attending: Lion Dyson
[2019-02-02] MEDS: Enoxaparin(*) 30 MG/0.3 ML SYR SUBCUT SCH (20:57)
[2019-02-02] MEDS: Nicotine Patch Removal NOTE FOLLOW UP SCH (21:25)
[2019-02-03] MEDS: hydrOXYzine HCL TAB* 25 MG PO PRN ×2 (01:16→08:24)
[2019-02-03] MEDS: ALPRAZolam TAB* 0.5 MG PO SCH ×4 (05:24→20:31)
[2019-02-03 06:22] LABS: BUN/Creatinine Ratio 16.4 (8-20); Calcium 9.6 mg/dL (8.6-10.3); EGFR African American 98.7 (>60); EGFR Non-African American 81.6 (>60); Lithium 0.55 mmol/L (0.6-1.2); Potassium 3.7 mmol/L (3.5-5.0)
[2019-02-03] MEDS: Famotidine TAB* 20 MG PO SCH ×2 (08:24→20:31)
[2019-02-03] MEDS: Gabapentin CAP(*) 300 MG PO SCH ×2 (08:24→20:32)
[2019-02-03] MEDS: Pantoprazole TAB * 40 MG TAB PO SCH (08:24)
[2019-02-03] MEDS: FLUoxetine CAP* 20 MG PO SCH (08:24)
[2019-02-03] MEDS: Aspirin 81 mg CHEW TAB* 81 MG TAB.CHEW PO SCH (08:24)
[2019-02-03] MEDS: Docusate CAP* 100 MG PO SCH ×2 (08:24→20:32)
[2019-02-03] MEDS: Nicotine PATCH 21 MG/24 HR* PATCH TRANSDERM SCH (08:25)
--- NOTE | 2019-02-03 09:30 | PN ---
Progress Note - Progress Note Date of Service: 02/03/19 SOAP: Subjective: CC: Right 1st toe infection HPI: Ms. Mansfield is a 58 yo female with PMH significant for depression, anxiety, [place], low back pain, and right 1st toe chronic osteomyelitis and wound. Denies fever, chills, nausea, vomiting, diarrhea. She states that she was previously having diarrhea, that has resolved. Reports that her tremor is improving. Objective: Vital Signs 02/03/19 02/03/19 02/03/19 07:31 08:23 08:24 Temperature 98.1 F Pulse Rate 77 Respiratory 16 18 18 Rate Blood Pressure 127/72 (mmHg) O2 Sat by Pulse 97 Oximetry Physical Exam: General: NAD, sitting up in bed Neurological: Alert and Oriented HEENT: Moist MM, no thrush Cardiovascular: Heart rate regular, no murmur Respiratory: Lung sounds clear bilateral Abdominal: Bowel sounds present; ABD soft, non tender, and non distended Skin: No rash on exposed skin Laboratory Last Values WBC 10.7 10^3/uL (3.5-10.8) 01/31/19 05:19 RBC 3.84 10^6 /uL (3.70-4.87) 01/31/19 05:19 Hgb 12.4 g/dL (12.0-16.0) 01/31/19 05:19 Hct 37 % (35-47) 01/31/19 05:19 MCV 97 fL (80-97) 01/31/19 05:19 MCH 32 pg (27-31) H 01/31/19 05:19 MCHC 33 g/dL (31-36) 01/31/19 05:19 RDW 14 % (10-15) 01/31/19 05:19 Plt Count 191 10^3/uL (150-450) 01/31/19 05:19 MPV 7.8 fL (7.4-10.4) 01/31/19 05:19 Neut % (Auto) 79.5 % 01/31/19 05:19 Lymph % (Auto) 8.7 % 01/31/19 05:19 [place] % (Auto) 8.8 % 01/31/19 05:19 Eos % (Auto) 2.6 % 01/31/19 05:19 Baso % (Auto) 0.4 % 01/31/19 05:19 Absolute Neuts (auto) 8.5 10^3/ul (1.5-7.7) H 01/31/19 05:19 Absolute Lymphs (auto) 0.9 10^3/ul (1.0-4.8) L 01/31/19 05:19 Absolute Monos (auto) 0.9 10^3/ul (0-0.8) H 01/31/19 05:19 Absolute Eos (auto) 0.3 10^3/ul (0-0.6) 01/31/19 05:19 Absolute Basos (auto) 0.0 10^3/ul (0-0.2) 01/31/19 05:19 Absolute Nucleated RBC 0.0 10^3/ul 01/31/19 05:19 Nucleated RBC % 0.0 01/31/19 05:19 INR (Anticoag Therapy) 1.06 (0.82-1.09) 01/30/19 17:43 Sodium 135 mmol/L (135-145) 02/03/19 05:25 Potassium 3.7 mmol/L (3.5-5.0) 02/03/19 05:25 Chloride 105 mmol/L (101-111) 02/03/19 05:25 Carbon Dioxide 22 mmol/L (22-32) 02/03/19 05:25 Anion Gap 8 mmol/L (2-11) 02/03/19 05:25 BUN 12 mg/dL (6-24) 02/03/19 05:25 Creatinine 0.73 mg/dL (0.51-0.95) 02/03/19 05:25 Est GFR ( Amer) 98.7 (>60) 02/03/19 05:25 Est GFR (Non-Af Amer) 81.6 (>60) 02/03/19 05:25 BUN/Creatinine Ratio 16.4 (8-20) 02/03/19 05:25 Glucose 106 mg/dL (70-100) H 02/03/19 05:25 Lactic Acid 0.6 mmol/L (0.5-2.0) 01/30/19 17:43 Calcium 9.6 mg/dL (8.6-10.3) 02/03/19 05:25 Total Bilirubin 0.50 mg/dL (0.2-1.0) 01/30/19 17:43 AST 18 U/L (13-39) 01/30/19 17:43 ALT 22 U/L (7-52) 01/30/19 17:43 Alkaline Phosphatase 92 U/L (34-104) 01/30/19 17:43 Ammonia 34 mcmol/L (16-53) 01/30/19 17:43 Troponin I 0.00 ng/mL (<0.04) 01/30/19 17:43 C-Reactive Protein 17.33 mg/L (<8.01) H 02/01/19 05:36 Total Protein 7.3 g/dL (6.4-8.9) 01/30/19 17:43 Albumin 3.9 g/dL (3.2-5.2) 01/30/19 17:43 Globulin 3.4 g/dL (2-4) 01/30/19 17:43 Albumin/Globulin Ratio 1.1 (1-3) 01/30/19 17:43 TSH 4.84 mcIU/mL (0.34-5.60) 01/30/19 17:43 Urine Color Yellow 01/30/19 17:58 Urine Appearance Cloudy 01/30/19 17:58 Urine pH 6.0 (5-9) 01/30/19 17:58 Ur Specific [place] 1.008 (1.010-1.030) L 01/30/19 17:58 Urine Protein Negative (Negative) 01/30/19 17:58 Urine Ketones Negative (Negative) 01/30/19 17:58 Urine Blood 1+ (Negative) A 01/30/19 17:58 Urine Nitrate Negative (Negative) 01/30/19 17:58 Urine Bilirubin Negative (Negative) 01/30/19 17:58 Urine Urobilinogen Negative (Negative) 01/30/19 17:58 Ur Leukocyte Esterase Negative (Negative) 01/30/19 17:58 Urine WBC (Auto) Trace(0-5/hpf) (Absent) 01/30/19 17:58 Urine RBC (Auto) Trace(0-2/hpf) (Absent) 01/30/19 17:58 Ur Squamous Epith Cells Present (Absent) A 01/30/19 17:58 Urine Bacteria Absent (Absent) 01/30/19 17:58 Hyaline Casts Present (Absent) A 01/30/19 17:58 Urine Glucose Negative (Negative) 01/30/19 17:58 Salicylates < 2.50 mg/dL (<30) 01/30/19 17:43 Urine Opiates Screen None detected (None Detect) 01/30/19 17:58 Acetaminophen < 15 mcg/mL 01/30/19 17:43 Ur Barbiturates Screen None detected (None Detect) 01/30/19 17:58 Ur Phencyclidine Scrn None detected (None Detect) 01/30/19 17:58 Ur Amphetamines Screen None detected (None Detect) 01/30/19 17:58 U Benzodiazepines Scrn Presumptive positive (None Detect) A 01/30/19 17:58 [place] 0.55 mmol/L (0.6-1.2) L 02/03/19 05:25 Urine Cocaine Screen None detected (None Detect) 01/30/19 17:58 U Cannabinoids Screen Presumptive positive (None Detect) A 01/30/19 17:58 Serum Alcohol < 10 mg/dL (<10) 01/30/19 17:43 Microbiology 01/30/19 17:58 Urine Culture - Final Urine Assessment: 1. Right 1st toe chronic osteomyelitis. Has received multiple abx courses over the past year and has past fusion hardware present. Orthopedics has recommended amputation, but patient is declining that option at this time and would like to try another course of abx. Discussed with the patient that the abx may not work or the infection could reoccur after treatment and she may need to have an amputation, she states understanding. Afebrile, and no leukocytosis. 2. URIEL. Resolved. Was on a prolonged course of bactrim which may have precipitated the URIEL. 3. PVD. Plan: At discharge will start IV ABX, plan for Ancef if insurance will cover home infusions. PICC line to be placed. Will need weekly labs while on IV ABX: CBC, CMP, and CRP. Followup with ID outpatient in 2-3 weeks.
[2019-02-03] MEDS: Ondansetron INJ* 2 MG/ML VIAL IV PRN (11:41)
--- NOTE | 2019-02-03 12:22 | PN ---
Subjective Date of Service: 02/03/19 Interval History: Per Physical Therapy note and RN report, patient felt dizzy with changing positions this am, therefore, did not participate well in PT. Orthostatics and EKG ordered. RN also reports that patient has had a decrease in appetite and has been very anxious. On assessment patient reports increase in anxiety and attributes it to not having usual extended release Xanax which she takes at home. She reports when she is this anxious her stomach gets "tight" and she cannot eat. Patient denies weakness, dizziness, cp, sob, palpitations, nausea, vomiting. Family History: Unchanged from Admission Social History: Unchanged from Admission Past Medical History: Unchanged from Admission Objective Active Medications: Acetaminophen (Tylenol Tab*) 650 mg PO Q4H PRN PRN Reason: FEVER/PAIN Alprazolam (Xanax Tab*) 1 mg PO TID [facility] Last Admin: 02/03/19 05:24 Dose: 1 mg Aspirin (Aspirin 81 Mg Chew Tab*) 81 mg PO QAM [facility] Last Admin: 02/03/19 08:24 Dose: 81 mg Buspirone HCl (Buspar Tab*) 5 mg PO TID PRN PRN Reason: ANXIETY/INSOMNIA Last Admin: 02/01/19 10:06 Dose: 5 mg Docusate Sodium (Colace Cap*) 100 mg PO BID [facility] Last Admin: 02/03/19 08:24 Dose: 100 mg Enoxaparin Sodium (Lovenox(*)) 30 mg SUBCUT Q24H [facility] Last Admin: 02/02/19 20:57 Dose: 30 mg Famotidine (Pepcid Tab*) 20 mg PO BID [facility]; Protocol Last Admin: 02/03/19 08:24 Dose: 20 mg Fluoxetine HCl (Prozac Cap*) 80 mg PO DAILY [facility] Last Admin: 02/03/19 08:24 Dose: 80 mg Gabapentin (Neurontin Cap(*)) 300 mg PO BID [facility] Last Admin: 02/03/19 08:24 Dose: 300 mg Hydroxyzine HCl (Atarax Tab*) 25 mg PO Q4H PRN PRN Reason: ANXIETY Last Admin: 02/03/19 08:24 Dose: 25 mg Melatonin (Melatonin) 3 mg PO BEDTIME PRN PRN Reason: SLEEP Last Admin: 02/01/19 19:54 Dose: 3 mg Nicotine (Nicotine Patch 21 Mg/24 Hr*) 1 patch TRANSDERM DAILY@0800 [facility] Last Admin: 02/03/19 08:25 Dose: 1 patch Nicotine Polacrilex (Nicotine Gum*) 4 mg PO Q2H PRN PRN Reason: CRAVING Last Admin: 02/01/19 04:19 Dose: 4 mg Nicotine Polacrilex (Nicotine Lozenge Mini) 2 mg MT Q2H PRN PRN Reason: CRAVING Olanzapine (Zyprexa Tab*) 10 mg PO QPM [facility] Last Admin: 02/02/19 17:42 Dose: 10 mg Ondansetron HCl (Zofran Inj*) 4 mg IV Q6H PRN PRN Reason: NAUSEA Last Admin: 02/03/19 11:41 Dose: 4 mg Pantoprazole Sodium (Protonix Tab*) 40 mg PO DAILY [facility] Last Admin: 02/03/19 08:24 Dose: 40 mg Pharmacy Profile Note (Nicotine Patch Removal Note*) 1 note FOLLOW UP 2100 [facility] Last Admin: 02/02/19 21:25 Dose: 1 note Prochlorperazine Edisylate (Compazine Inj*) 5 mg IM Q6H PRN PRN Reason: NAUSEA Last Admin: 02/01/19 16:50 Dose: 5 mg Senna (Senokot Tab*) 2 tab PO BEDTIME PRN PRN Reason: CONSTIPATION Last Admin: 02/01/19 18:56 Dose: 2 tab Additional Medications: This report was requested by: Adelia Cronin | Reference #: [id number]. You have not added a LANDY number. Keeping your LANDY number(s) up to date on the My LANDY Numbers page will enable the separation of your prescriptions from others' in the search results. Others' Prescriptions. Patient Name: Mayda Mansfield Date: 1960. Address: [address] [place] [address] Sex: Female. Rx Written. Rx Dispensed. Drug. Quantity. Days Supply. Prescriber Name. 01/24/2019 01/27/2019 alprazolam xr 1 mg tablet 66 25 Yakov Trejo). 01/24/2019 01/25/2019 alprazolam xr 1 mg tablet 9 3 Yakov Trejo). 01/20/2019 01/23/2019 oxycodone- acetaminophen 10-325 mg tab 90 30 Milton Cagle MD. 11/16/2018 11/17/2018 alprazolam er 1 mg tablet 75 25 Yakov Trejo (). 10/07/2018 10/08/2018 alprazolam er 1 mg tablet 75 25 Yakov Trejo (). 08/25/2018 09/01/2018 alprazolam er 1 mg tablet 75 25 Yakov Trejo (). 07/29/2018 08/02/2018 alprazolam er 1 mg tablet 60 20 Yakov Trejo (). 06/24/2018 06/24/2018 alprazolam er 1 mg tablet 75 25 Yakov Trejo (). 05/21/2018 05/24/2018 oxycodone-acetaminophen 10-325 mg tab 90 30 Ute Britt MD. 201704/27/2018 alprazolam er 1 mg tablet 75 25 Yakov Trejo (). 201704/22/2018 oxycodone-acetaminophen 10-325 mg tab 90 30 Milton Cagle MD. 03/25/2018 03/26/2018 alprazolam er 1 mg tablet 75 25 Radha Beach MD. 03/20/2018 oxycodone-acetaminophen 10-325 mg tab 90 30 Milton Cagle MD. 02/15/2018 02/17/2018 oxycodone-acetaminophen 10-325 mg tab 90 30 Milton Cagle MD. 02/11/2018 02/17/2018 alprazolam er 1 mg tablet 75 25 Radha Beach MD Vital Signs - 8 hr 02/03/19 02/03/19 02/03/19 05:24 07:31 08:00 Temperature 98.1 F Pulse Rate 77 Respiratory 16 16 18 Rate Blood Pressure 127/72 (mmHg) O2 Sat by Pulse 97 Oximetry 02/03/19 02/03/19 02/03/19 08:23 08:24 10:37 Temperature Pulse Rate Respiratory 18 18 16 Rate Blood Pressure (mmHg) O2 Sat by Pulse Oximetry 02/03/19 02/03/19 02/03/19 11:47 11:48 11:51 Temperature 98.3 F Pulse Rate 70 70 77 Respiratory 20 Rate Blood Pressure 126/62 126/62 133/66 (mmHg) O2 Sat by Pulse 95 Oximetry 02/03/19 11:53 Temperature Pulse Rate 81 Respiratory Rate Blood Pressure 126/72 (mmHg) O2 Sat by Pulse Oximetry Oxygen Devices in Use Now: None Appearance: Comfortable, NAD Eyes: No Scleral Icterus, PERRLA Ears/Nose/Mouth/Throat: Clear Oropharnyx, Mucous Membranes Moist Neck: NL Appearance and Movements; NL JVP Respiratory: Symmetrical Chest Expansion and Respiratory Effort, Clear to Auscultation Cardiovascular: NL Sounds; No Murmurs; No JVD, RRR, No Edema Abdominal: NL Sounds; No Tenderness; No Distention Lymphatic: No Cervical Adenopathy Extremities: No Clubbing, Cyanosis Neurological: Alert and Oriented x 3, NL Sensation, NL Muscle Strength and Tone , - - Tremor to bilateral UE noted which is much improved from yesterday Nutrition: Taking PO's Result Diagrams: 01/31/19 05:19 02/03/19 05:25 Additional Lab and Data: Laboratory Results - last 24 hr 02/03/19 05:25 Sodium 135 Potassium 3.7 Chloride 105 Carbon Dioxide 22 Anion Gap 8 BUN 12 Creatinine 0.73 Est GFR ( Amer) 98.7 Est GFR (Non-Af Amer) 81.6 BUN/Creatinine Ratio 16.4 Glucose 106 H Calcium 9.6 [place] 0.55 L Microbiology and Other Data: Microbiology 01/30/19 17:58 Urine Urine Culture - Final Assess/Plan/Problems-Billing Assessment: 58 yo female PMH anxiety, depression, COPD, chronic left 1st toe wounds ( recently started rifampin and bactrim) p/w AMS, tremulousness, elevated lithium levels and URIEL. Slowly improving. - Patient Problems (1) Anxiety and depression Comment: - RN reports patient had anxiety throughout the night and this morning. - Reviewed [place] [employer] and it appears patient takes Xanax ER 1 mg 3 times per day. Discussed with pharmacy and we do not have this in hospital. Discussed appropriate replacement and patient increased to Xanax (immediate release) 1 mg QID. Pharmacy will ordered ER. She can resume ER at home. - Buspar trialed but patient did not tolerate - Continue prozac at home dose of 80 mg daily. - Zyprexa resumed 02/01 per psych (2) Tremor Comment: - Tremor improved today. Patient reports it improved after receiving additional dose of Xanax. - She reports tremor has been ongoing for several weeks and she has attributed it to the [place]. - PT/OT ordered - Will go home with walker (3) Toxic encephalopathy Comment: - Improving - Secondary to [place] Toxicity (4) Nausea & vomiting Comment: - Occasional nausea which patient attributes to not having normal dose Xanax. Reports improved with additional dose of Xanax today. - Improves with Zofran and GI cocktail. - Also could be secondary to GERD as she has not been receiving her home H2 baltazar (which was restarted yesterday) - Cont Bowel regime (5) [place] toxicity Comment: - Improved as [place] level is 1.06 - Will not restart [place]. Discussed with Dr Martell and best option is for patient to follow up with Dr Trejo at discharge. Dr Martell also recommended restarting Zyprexa instead of Buspar - [place] toxicity secondary to URIEL secondary to medications for chronic osteo; Dr Roberson consulting and discussed possible PICC and IV abx instead of continue previous PO as they could be the culprit. - [place] toxicity could have also been due to poor compliance. Patient has noted short term memory issues which she admits to and nurses have noticed. Patient's daughters will help dispense medicatons per CW - No longer needs serial EKGs as [place] level is normal and Qtc less than 500 today (6) URIEL (acute kidney injury) Comment: - Creatinine wnl - Possibly secondary to bactrim/rifampin treatment which she was on at home. Dr Roberson consulting for alternative agents for chronic osteo. Plan to discharge with PICC and IV abx (7) Osteomyelitis of great toe of right foot Comment: - See wound care note - Dr Roberson consulting. - Will not be restarted on Bactrim and Rifampin as they could have contributed to URIEL. - Plan for PICC with IV abx at home (8) Lung cancer Comment: - Stable; Follow up with PCP (9) DVT prophylaxis Comment: - Lovenox 30mg daily. Status and Disposition: Inpatient. DC home when stable. Attending: Lion Dyson
[2019-02-03] MEDS: OLANzapine TAB* 10 MG PO SCH (17:34)
[2019-02-03] MEDS: Enoxaparin(*) 30 MG/0.3 ML SYR SUBCUT SCH (20:33)
[2019-02-03] MEDS: Nicotine Patch Removal NOTE FOLLOW UP SCH (20:37)
[2019-02-04 07:23] LABS: BUN/Creatinine Ratio 17.6 (8-20); Calcium 9.5 mg/dL (8.6-10.3); EGFR African American 107.2 (>60); EGFR Non-African American 88.6 (>60); Potassium 3.8 mmol/L (3.5-5.0)
[2019-02-04 07:29] LABS: Lithium 0.4 mmol/L (0.6-1.2)
[2019-02-04] MEDS: Gabapentin CAP(*) 300 MG PO SCH (09:37)
--- NOTE | 2019-02-04 09:37 | PN ---
Progress Note - Progress Note Date of Service: 02/04/19 SOAP: Subjective: CC: Right 1st toe infection HPI: Ms. Mansfield is a 58 yo female with PMH significant for depression, anxiety, SLAENA, low back pain, and right 1st toe chronic osteomyelitis and wound. Denies fever, chills, nausea, vomiting, or diarrhea. She reports constipation. Reports that her tremor continues to improve. She reports dizziness with position changes, she had orthostatic VS checked yesterday and was not orthostatic. Objective: Vital Signs - 8 hr 02/04/19 02/04/19 03:00 07:26 Temperature 98.0 F Pulse Rate 70 Respiratory 16 18 Rate Blood Pressure 106/67 (mmHg) O2 Sat by Pulse 92 Oximetry Physical Exam: General: NAD, sitting up in bed Neurological: Alert and Oriented x 4. Mild resting tremor noted HEENT: Moist MM, no thrush Cardiovascular: Heart rate regular, no murmur Respiratory: Lung sounds clear bilateral Abdominal: Bowel sounds present; ABD soft, non tender and non distended Skin: No rash on the exposed skin Laboratory Last Values WBC 10.7 10^3/uL (3.5-10.8) 01/31/19 05:19 RBC 3.84 10^6 /uL (3.70-4.87) 01/31/19 05:19 Hgb 12.4 g/dL (12.0-16.0) 01/31/19 05:19 Hct 37 % (35-47) 01/31/19 05:19 MCV 97 fL (80-97) 01/31/19 05:19 MCH 32 pg (27-31) H 01/31/19 05:19 MCHC 33 g/dL (31-36) 01/31/19 05:19 RDW 14 % (10-15) 01/31/19 05:19 Plt Count 191 10^3/uL (150-450) 01/31/19 05:19 MPV 7.8 fL (7.4-10.4) 01/31/19 05:19 Neut % (Auto) 79.5 % 01/31/19 05:19 Lymph % (Auto) 8.7 % 01/31/19 05:19 Holt % (Auto) 8.8 % 01/31/19 05:19 Eos % (Auto) 2.6 % 01/31/19 05:19 Baso % (Auto) 0.4 % 01/31/19 05:19 Absolute Neuts (auto) 8.5 10^3/ul (1.5-7.7) H 01/31/19 05:19 Absolute Lymphs (auto) 0.9 10^3/ul (1.0-4.8) L 01/31/19 05:19 Absolute Monos (auto) 0.9 10^3/ul (0-0.8) H 01/31/19 05:19 Absolute Eos (auto) 0.3 10^3/ul (0-0.6) 01/31/19 05:19 Absolute Basos (auto) 0.0 10^3/ul (0-0.2) 01/31/19 05:19 Absolute Nucleated RBC 0.0 10^3/ul 01/31/19 05:19 Nucleated RBC % 0.0 01/31/19 05:19 INR (Anticoag Therapy) 1.06 (0.82-1.09) 01/30/19 17:43 Sodium 139 mmol/L (135-145) 02/04/19 05:43 Potassium 3.8 mmol/L (3.5-5.0) 02/04/19 05:43 Chloride 107 mmol/L (101-111) 02/04/19 05:43 Carbon Dioxide 25 mmol/L (22-32) 02/04/19 05:43 Anion Gap 7 mmol/L (2-11) 02/04/19 05:43 BUN 12 mg/dL (6-24) 02/04/19 05:43 Creatinine 0.68 mg/dL (0.51-0.95) 02/04/19 05:43 Est GFR ( Amer) 107.2 (>60) 02/04/19 05:43 Est GFR (Non-Af Amer) 88.6 (>60) 02/04/19 05:43 BUN/Creatinine Ratio 17.6 (8-20) 02/04/19 05:43 Glucose 102 mg/dL (70-100) H 02/04/19 05:43 Lactic Acid 0.6 mmol/L (0.5-2.0) 01/30/19 17:43 Calcium 9.5 mg/dL (8.6-10.3) 02/04/19 05:43 Total Bilirubin 0.50 mg/dL (0.2-1.0) 01/30/19 17:43 AST 18 U/L (13-39) 01/30/19 17:43 ALT 22 U/L (7-52) 01/30/19 17:43 Alkaline Phosphatase 92 U/L (34-104) 01/30/19 17:43 Ammonia 34 mcmol/L (16-53) 01/30/19 17:43 Troponin I 0.00 ng/mL (<0.04) 01/30/19 17:43 C-Reactive Protein 17.33 mg/L (<8.01) H 02/01/19 05:36 Total Protein 7.3 g/dL (6.4-8.9) 01/30/19 17:43 Albumin 3.9 g/dL (3.2-5.2) 01/30/19 17:43 Globulin 3.4 g/dL (2-4) 01/30/19 17:43 Albumin/Globulin Ratio 1.1 (1-3) 01/30/19 17:43 TSH 4.84 mcIU/mL (0.34-5.60) 01/30/19 17:43 Urine Color Yellow 01/30/19 17:58 Urine Appearance Cloudy 01/30/19 17:58 Urine pH 6.0 (5-9) 01/30/19 17:58 Ur Specific [place] 1.008 (1.010-1.030) L 01/30/19 17:58 Urine Protein Negative (Negative) 01/30/19 17:58 Urine Ketones Negative (Negative) 01/30/19 17:58 Urine Blood 1+ (Negative) A 01/30/19 17:58 Urine Nitrate Negative (Negative) 01/30/19 17:58 Urine Bilirubin Negative (Negative) 01/30/19 17:58 Urine Urobilinogen Negative (Negative) 01/30/19 17:58 Ur Leukocyte Esterase Negative (Negative) 01/30/19 17:58 Urine WBC (Auto) Trace(0-5/hpf) (Absent) 01/30/19 17:58 Urine RBC (Auto) Trace(0-2/hpf) (Absent) 01/30/19 17:58 Ur Squamous Epith Cells Present (Absent) A 01/30/19 17:58 Urine Bacteria Absent (Absent) 01/30/19 17:58 Hyaline Casts Present (Absent) A 01/30/19 17:58 Urine Glucose Negative (Negative) 01/30/19 17:58 Salicylates < 2.50 mg/dL (<30) 01/30/19 17:43 Urine Opiates Screen None detected (None Detect) 01/30/19 17:58 Acetaminophen < 15 mcg/mL 01/30/19 17:43 Ur Barbiturates Screen None detected (None Detect) 01/30/19 17:58 Ur Phencyclidine Scrn None detected (None Detect) 01/30/19 17:58 Ur Amphetamines Screen None detected (None Detect) 01/30/19 17:58 U Benzodiazepines Scrn Presumptive positive (None Detect) A 01/30/19 17:58 [place] 0.40 mmol/L (0.6-1.2) L 02/04/19 05:43 Urine Cocaine Screen None detected (None Detect) 01/30/19 17:58 U Cannabinoids Screen Presumptive positive (None Detect) A 01/30/19 17:58 Serum Alcohol < 10 mg/dL (<10) 01/30/19 17:43 Microbiology 01/30/19 17:58 Urine Culture - Final Urine Assessment: 1. Right 1st toe chronic osteomyelitis. Has received multiple abx courses over the past year and has past fusion hardware present. Orthopedics has recommended amputation, but patient is declining that option at this time and would like to try another course of abx. Afebrile, and no leukocytosis. CRP was 17.33 on . 2. URIEL. Resolved. Was on a prolonged course of bactrim which may have precipitated the URIEL. 3. PVD. Plan: PICC line has been placed. Will start Daptomycin 500 mg IV daily outpatient for 6 weeks, her insurance will not cover home infusions. Will need weekly labs while on IV ABX: CBC, CMP, CRP, and CK. Followup with ID outpatient in 2-3 weeks.
[2019-02-04] MEDS: ALPRAZolam TAB* 0.5 MG PO SCH ×2 (09:38→13:18)
[2019-02-04] MEDS: Docusate CAP* 100 MG PO SCH (09:38)
[2019-02-04] MEDS: Aspirin 81 mg CHEW TAB* 81 MG TAB.CHEW PO SCH (09:38)
[2019-02-04] MEDS: Pantoprazole TAB * 40 MG TAB PO SCH (09:38)
[2019-02-04] MEDS: Famotidine TAB* 20 MG PO SCH (09:38)
[2019-02-04] MEDS: FLUoxetine CAP* 20 MG PO SCH (09:39)
[2019-02-04] MEDS: Nicotine PATCH 21 MG/24 HR* PATCH TRANSDERM SCH (09:39)
[2019-02-04 14:31] VITALS: BP 152/81
--- NOTE | 2019-02-04 20:09 | DS ---
AMENDED REPORT NOW INCLUDES DESIGNATED COSIGNER CC: Dr. Milton Cagle; Dr. Emory Ruano * DISCHARGE SUMMARY: DATE OF ADMISSION: 01/31/19 DATE OF DISCHARGE: 02/04/19 PRIMARY CARE PROVIDER: Dr. Milton Cagle. ATTENDING PHYSICIAN: Dr. Lion Dyson * (dictated by Maame Adrian NP) PRIMARY DIAGNOSES: 1. [place] toxicity. 2. Toxic encephalopathy. 3. Acute kidney injury. SECONDARY DIAGNOSES: 1. Osteomyelitis of right great toe. 2. Anxiety. 3. Depression. 4. Chronic obstructive pulmonary disease. STUDIES WHILE IN THE HOSPITAL: 1. EKG on 01/30/19 shows normal sinus rhythm with a rate of 83, QTc 500. This EKG was somewhat difficult to read due to artifact, but appears consistent with previous EKG on file. 2. Brain CT on 01/29/19 reads as no acute intracranial pathology. 3. EKG on 02/01/19 shows normal sinus rhythm with a rate of 72, QTc 488, no ischemic changes. 4. Abdomen x-ray on 02/01/19 reads as nonspecific bowel gas pattern. 5. EKG on 02/03/19 shows normal sinus rhythm with a rate of 82, QTc 498, no ischemic changes. CONSULTATIONS WHILE IN THE HOSPITAL: 1. Dr. Ruano and Mattie Morley NP, from Infectious Disease. HISTORY OF PRESENT ILLNESS AND HOSPITAL COURSE: Ms. Mansfield is a 58-year-old female with past medical history of depression, anxiety, active right foot osteomyelitis, peripheral vascular disease, and COPD, who presented to the emergency room on 01/30/19 with complaints of confusion, please see the history and physical by Dr. Cox for complete summary of the events leading up to this hospitalization. In short, the patient had been noted for approximately 7 to 10 days to have episodes of confusion, nausea, vomiting, diarrhea, and abdominal pain. She did have a fall at home and was noted to have a tremor. She had been started on lithium in late 2018 by her outpatient psychiatrist. The patient was not able to accurately report how much lithium she was taking. In the emergency room, she was noted to have stable vitals. She has labs which were remarkable for a mild leukocytosis, acute kidney injury with a creatinine of 1.5, and a lithium level of 2.23. Tox screen was also noted to be positive for benzodiazepines and cannabinoids. Because of the concern for lithium toxicity the patient was admitted by the hospitalist service. The patient had serial EKGs to monitor her prolonged QT as well as serial lithium levels. Her lithium level remained supratherapeutic until 02/01/19, at which point it normalized. The patient was continued on her other usual medications though lithium was obviously held. The case was discussed with our psychiatry team who recommended stopping the lithium and restarting the patient on Zyprexa. The patient's symptoms gradually improved and her mental status normalized. Her nausea, vomiting, and diarrhea normalized. She is still noted to have a mild tremor but reports that this has been normal for her if alprazolam is taken late. Acute kidney injury resolved and last creatinine today was 0.68. The patient was followed by Infectious Disease while here in the hospital due to her long-standing osteomyelitis of her right great toe. She was taken off antibiotics while here in the hospital as she previously had been taking Bactrim and rifampin at home and Infectious Disease recommended holding antibiotics while she was here in the hospital and restarting IV antibiotics on discharge. At this point, they have recommended that she be discharged on daptomycin IV for 6 weeks. A PICC line have been place. Today, the patient reports feeling well. She is anxious to return home. She does report mild dizziness though has been able to ambulate independently to the bathroom with a walker, which she states is her baseline. On exam, she has no focal neurological deficits. Her heart has a regular rate and rhythm without murmurs, rubs, or gallops. Her lungs are clear to auscultation without rhonchi , wheezes, or rubs. There is some mild nonpitting edema to the right lower extremity. Physical exam is otherwise benign. Ms. Mansfield is stable for discharge today. Vital signs are as follows: Temp 98.4 , heart rate 72, respiratory rate 16, oxygen saturation 96% on room air, blood pressure 152/81. DISCHARGE MEDICATIONS: New medications: 1. Daptomycin 500 mg IV daily x6 weeks. 2. Docusate 100 mg p.o. b.i.d. 3. Heparin flush per protocol for PICC line. 4. Senna 2 tabs p.o. at bedtime p.r.n. constipation. Continued medications: 1. Alprazolam 1 mg p.o. t.i.d. 2. Aspirin 81 mg p.o. daily. 3. Fluoxetine 80 mg p.o. daily. 4. Gabapentin 300 mg p.o. b.i.d. 6. Lisinopril 10 mg p.o. daily. 7. Olanzapine 10 mg p.o. at bedtime. 8. Percocet 10/325 one tab p.o. t.i.d. p.r.n. pain. 9. Pantoprazole 40 mg p.o. b.i.d. 10. Ranitidine 150 mg p.o. b.i.d. Discontinued medications: 1. [place]. 2. Bactrim 3. Rifampin. DISCHARGE PLAN: Ms. Mansfield will be discharged to home. Activity will be as tolerated. She is encouraged to use a walker at all times. Diet will be regular as tolerated. Medications are noted above. The patient will need IV daptomycin for 6 weeks per Infectious Disease recommendation. She does have a PICC line in place at the time of discharge. She will need to remain off her lithium and will need to follow up with her outpatient psychiatrist to determine any further medication changes are needed. Additionally, she will need to stop taking Bactrim and rifampin, which she was previously taking for her osteomyelitis. She can continue her other usual medications as noted above and I have not made any further changes. She will need to follow up with her primary care provider in 4 to 7 days and should follow up with Infectious Disease in 2 to 3 weeks. Infectious Disease has additionally recommended that the patient have a CBC, creatine kinase, CMP, and CRP weekly while on IV antibiotics, and I have placed orders for these labs to be completed every week for 6 weeks total. The patient is instructed to return to the emergency room or nearest hospital for any worsening of symptoms, shortness of breath, lightheadedness, dizziness, chest comfort, high fevers, chills, night sweats, loss of consciousness, or any other worrisome signs or symptoms. DISCHARGE CONDITION: Stable. DISCHARGE DISPOSITION: Home. This is a summarized report of a complex medical history and hospital stay. For further details, please see the entire medical record. TIME SPENT: Approximately 50 minutes was spent on this discharge. MAAME ADRIAN, BOAT LOADER HELPER [id number]/[facility] #: [id number] [facility] COMMUNITY HOSPITALBenjie
== END 2019-02-04 14:26 | disposition home or self-care (01) | DRG 917 ==
LOC: ED 15:35 → MEDTELE 19:48
PROVIDERS: ADMIT Internal Medicine; ATTEND Internal Medicine
PROC: 5A09357 Assistance with Respiratory Ventilation, Less than 24 Consecutive Hours, Continuous Positive Airway Pressure (ICD-10-PCS; 2019-01-30)
PROC: 02HV33Z Insertion of Infusion Device into Superior Vena Cava, Percutaneous Approach (ICD-10-PCS; principal; 2019-02-03)
DX: T43.591A Poisoning by other antipsychotics and neuroleptics, accidental (unintentional), initial encounter (principal); G92 Toxic encephalopathy; C34.90 Malignant neoplasm of unspecified part of unspecified bronchus or lung; M86.8X7 Other osteomyelitis, ankle and foot; N17.9 Acute kidney failure, unspecified; E87.1 Hypo-osmolality and hyponatremia; I73.9 Peripheral vascular disease, unspecified; I10 Essential (primary) hypertension; K21.9 Gastro-esophageal reflux disease without esophagitis; K58.9 Irritable bowel syndrome, unspecified; M21.371 Foot drop, right foot; M19.042 Primary osteoarthritis, left hand; M19.041 Primary osteoarthritis, right hand; F41.0 Panic disorder [episodic paroxysmal anxiety]; F32.9 Major depressive disorder, single episode, unspecified; F17.210 Nicotine dependence, cigarettes, uncomplicated; Z66 Do not resuscitate; L97.519 Non-pressure chronic ulcer of other part of right foot with unspecified severity; E66.9 Obesity, unspecified; G47.33 Obstructive sleep apnea (adult) (pediatric); T43.595A Adverse effect of other antipsychotics and neuroleptics, initial encounter; R79.1 Abnormal coagulation profile; J44.9 Chronic obstructive pulmonary disease, unspecified; G89.29 Other chronic pain; M54.5 Low back pain; Z98.51 Tubal ligation status; Z90.49 Acquired absence of other specified parts of digestive tract; Z88.1 Allergy status to other antibiotic agents; Z83.3 Family history of diabetes mellitus; Z82.49 Family history of ischemic heart disease and other diseases of the circulatory system; Z68.32 Body mass index [BMI] 32.0-32.9, adult; Y92.009 Unspecified place in unspecified non-institutional (private) residence as the place of occurrence of the external cause; Z91.14 Patient's other noncompliance with medication regimen; Z79.82 Long term (current) use of aspirin
CPT/HCPCS: 36415; 70450; 74019; 80048; 80053; 80178; 80307; 80320; 80329; 81003; 81015; 82140; 83605; 84443; 84484; 85025; 85610; 86140; 87086; 93005; 94660; 99284; A9270-GY; C1751; G0480; G8978-GP-CJ; G8979-GP-CI; G8987-GO-CJ; G8988-GO-CI; J0780; J1650; J2405

== ENCOUNTER → 2019-04-21 05:57 | Day surgery (SDC) | payer MEDICARE, OTHER ==
[~2019-04-21 05:57] MED LIST changes: +Acetaminophen TAB* 325 MG PO PRN; +Buffered Lidocaine 1% SYRIN* 1 ML/SYRINGE INTRADERM ONE; +Bupivacaine 0.5%* 50 ML MDV VIAL ONE; -Clopidogrel TAB* 300 MG ONE; -Flumazenil* 0.1 MG/ML 5 ML MDV ONE; -Heparin 2 UNITS/ML IVPREMIX* 1,000 ML IV ONE; -Heparin 2 UNITS/ML IVPREMIX* 2,000 ML IV ONE; -Heparin(*) 1000 UNIT/ML 10 ML VIAL CATH LAB IV ONE; -Iodixanol 320 (CONTRAST) 100 ML SDV ONE; -Iohexol 350 (CONTRAST) 200 ML MDV IV ONE; +Ketorolac INJ* 30 MG/ML 1 ML VIAL IV PRN; -LORazepam TAB(*) 1 MG ONE; +Lactated Ringers 1000 ML Bag* 1,000 ML IV SCH; +Levalbuterol 1.25MG/0.5ML NEB ONE; -Lidocaine 1% INJ* 10 MG/ML 30 ML SDV ONE; +Lidocaine 2% PF * 5 ML VIAL ONE; -Midazolam* 1 MG/ML 10 ML VIAL (10 MG) ONE; +Midazolam* 1 MG/ML 2 ML VIAL (2 MG) ONE; +Naloxone* 0.4 MG/ML 1 ML VIAL IV PRN; -Naloxone* 0.4 MG/ML 1 ML VIAL ONE; +Ondansetron INJ* 2 MG/ML VIAL IV PRN; -Ondansetron INJ* 2 MG/ML VIAL ONE; +Propofol* 10 MG/ML 20 ML BTL ONE; +Propofol* 500 MG/50 ML BTL ONE; -VERAPAMIL 2.5 MG/ML 2 ML VIAL ** 5 mg/2 ml ONE; +ceFAZolin 2 GM in NS PREMIX(*) 2 GM/100 ML BAG IVPB ONE; +fentaNYL* 50 MCG/ML 2 ML VIAL (100 MCG VIAL) IV PRN; -fentaNYL* 50 MCG/ML 2 ML VIAL (100 MCG VIAL) ONE; -fentaNYL* 50 MCG/ML 5 ML VIAL (250 MCG VIAL) ONE; -nitroGLYCERIN DRIP* 25,000 MCG/250 ML BTL ONE; +oxyCODONE TAB* 5 MG TAB PO PRN
--- NOTE | 2019-04-21 08:33 | OP ---
Operative Report - Blank - Operative Report Date of Operation: 04/21/19 Note: PATIENT: Mayda Mansfield DATE OF : 1960 DATE OF SURGERY: 04/21/2019 SURGEON: Yoandy Delacruz MD SLATE MIXER: PARKER Pan, whos assistance was necessary for positioning, retraction, help with instrumentation, and closure. ANESTHESIOLOGIST: Dr. Cat PREOPERATIVE DIAGNOSIS: Right foot painful retained hardware and right foot infection POSTOPERATIVE DIAGNOSIS: Right foot painful retained hardware and right foot infection OPERATION: Right foot, removal of implants, deep. ANESTHESIA: MAC IMPLANTS: none TOURNIQUET TIME: Less than 30 minutes with an ankle Esmarch tourniquet SPECIMENS: Culture swabs to microbiology ESTIMATED BLOOD LOSS: minimal COMPLICATIONS: none STATUS: Stable from the operating room to the recovery room and then home. 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 Both operative and non operative treatment alternatives were reviewed. Further, the nature and risks of surgery were reviewed in careful detail, in the office as well as the pre-operative holding area. Our discussions regarding the risks of surgery included, but were not limited to, persistent or worsening infection, wound problems, nerve injury, neuroma, RSD, persistent symptoms, blood clot, need for further surgery, failure of the surgery, and even the remote chance of catastrophic complication, including loss of limb. DESCRIPTION OF PROCEDURE: The patient was seen in the preoperative holding unit and informed written consent was obtained. The appropriate extremity was marked. The patient was then brought to the operating room and carefully positioned on the operating room table. Anesthesia was induced. All bony prominences were padded with great care. A chlorhexidine based pre-scrub was performed followed by a chloraprep prep and drape in standard sterile fashion. A surgical safety pause was then conducted in which we confirmed the appropriate patient, extremity, planned procedure, availability of equipment, indication and administration of prophylactic antibiotics, and DVT prophylaxis in the form of a compression boot on the non-surgical extremity. We began by placing an ankle Esmarch tourniquet. I injected local anesthetic to the area of the prior surgical incision. I utilized the prior incision. I dissected down to the screw heads. I then utilized a scalpel to sharply expose the screw heads. I then removed the screws utilizing a screwdriver without difficulty. 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 Deep culture swabs were then taken and sent to microbiology. Fluoroscopy was used to confirm removal of all of the hardware. At this point, we irrigated copiously and then closed in layers meticulously utilizing 3-0 Monocryl and 3-0 nylon for the skin. A sterile dressing was then applied. The patient was then awakened from anesthesia and transferred to the recovery room in stable condition. There were no complications. All needle and sponge counts were correct at the end of the case. ATTESTATION: I attest I was present and scrubbed and performed the critical portions of the procedure myself. POSTOPERATIVE PLAN: The plan is to remove the sutures in 2 weeks.
[2019-04-21 08:55] VITALS: BP 152/81
== END | disposition home or self-care (01) ==
LOC: OR 05:57
PROVIDERS: ATTEND Orthopaedic Surgery
DX: T84.84XA Pain due to internal orthopedic prosthetic devices, implants and grafts, initial encounter (principal); T84.69XA Infection and inflammatory reaction due to internal fixation device of other site, initial encounter; Y83.1 Surgical operation with implant of artificial internal device as the cause of abnormal reaction of the patient, or of later complication, without mention of misadventure at the time of the procedure; F17.210 Nicotine dependence, cigarettes, uncomplicated; I10 Essential (primary) hypertension; J44.9 Chronic obstructive pulmonary disease, unspecified; M19.90 Unspecified osteoarthritis, unspecified site; F41.8 Other specified anxiety disorders; Z85.118 Personal history of other malignant neoplasm of bronchus and lung; I73.9 Peripheral vascular disease, unspecified; M21.379 Foot drop, unspecified foot
CPT/HCPCS: 76000; 87070; 87073; 87205; 88300; A9270-GY; J0690; J2250; J2704; J3490

== ENCOUNTER 2019-08-29 05:47 | Emergency (ER) | payer MEDICARE, OTHER ==
[2019-08-29] MEDS ORDERED: Albuterol/Ipratropium NEB.SOL* Albuterol 2.5 MG/Ipratropium 0.5 MG 3 ML INH ONE ×3 (06:04→08:25)
[2019-08-29] MEDS ORDERED: NS 0.9% 1000 ML** 1,000 ML IV ONE (06:05)
--- NOTE | 2019-08-29 06:07 | ED ---
Shortness of Breath - HPI Summary HPI Summary: Pt. is a 58 y.o female who presents to the ER for increased cough and SOB. Pt. states she has been feeling poorly over the last several weeks. Pt. notes hx lung cancer and finished radiation/chemo last year. Pt. still smoking. Pt. states she has a baseline of shortness of breath. Pt. denies fever, cp, vomiting , diarrhea, abd. pain. Past medical hx of hypertension, GERD, lung cancer (in remission), smoking history. Sxs are moderate in severity. No current modifying factors. Pt. notes she saw her PCP last week and had a negative flu test. - History of Current Complaint Chief Complaint: EDUpperRespComplaint Time Seen by Provider: 08/29/19 05:57 Hx Obtained From: Patient - Allergy/Home Medications Allergies/Adverse Reactions: Allergies Allergy/AdvReac Type Severity Reaction Status Date / Time doxycycline AdvReac Intermediate GI Upset Verified 08/29/19 05:50 tetracycline AdvReac Intermediate GI Upset Verified 08/29/19 05:50 PMH/Surg Hx/FS Hx/Imm Hx Previously Healthy: Yes Endocrine/Hematology History: Denies: Hx Diabetes Cardiovascular History: Reports: Hx Hypertension, Hx Peripheral Vascular Disease Denies: Hx Pacemaker/ICD Respiratory History: Reports: Hx Chronic Obstructive Pulmonary Disease (COPD), Hx Sleep Apnea, Other Respiratory Problems/Disorders - very hoarse Denies: Hx Asthma GI History: Reports: Hx Gastroesophageal Reflux Disease, Hx Irritable Bowel Denies: Other GI Disorders History: Denies: Hx Renal Disease Musculoskeletal History: Reports: Hx Arthritis - hands, Hx Bursitis, Other Musculoskeletal History - RIGHT FOOT DROP FOOT after back surgery Comment Only: Hx Tendonitis - arms Sensory History: Reports: Hx Contacts or Glasses Denies: Hx Hearing Aid Opthamlomology History: Reports: Hx Contacts or Glasses Neurological History: Reports: Other Neuro Impairments/Disorders - right foot drop Psychiatric History: Reports: Hx Anxiety - on meds, Hx Depression - ON MEDICATION, Hx Panic Disorder, Hx Community Mental Health Tx - Cancer History Cancer Type, Location and Year: stage 1 Lung ca 2019, radiation Hx Radiation Therapy: Yes - Surgical History Surgery Procedure, Year, and Place: BACK SURGERY-[place]. TUBAL LIGATION. TONSILLECTOMY. LEFT KNEE ARTHROSCOPY X 2. GALLBLADER REMOVED. RIGHT FOOT REMOVAL OF PLANTAR WART. RIGHT TOE STRAIGHTENED Hx Anesthesia Reactions: No Infectious Disease History: No Infectious Disease History: Denies: Traveled Outside the [place] in Last 30 Days - Family History Known Family History: Positive: Non-Contributory - Social History Occupation: Unemployed Lives: With Family Alcohol Use: None Substance Use Type: Reports: None Substance Use Comment - Amount & Last Used: SMOKE MARIJUANA Hx Tobacco Use: Yes Smoking Status (MU): Heavy Every Day Tobacco Smoker Type: Cigarettes Amount Used/How Often: pack a day for 49yrs Have You Smoked in the Last Year: Yes Review of Systems Constitutional: Negative Eyes: Negative ENT: Negative Cardiovascular: Negative Positive: Shortness Of Breath, Cough Gastrointestinal: Negative Skin: Negative Neurological: Negative All Other Systems Reviewed And Are Negative: Yes Physical Exam Triage Information Reviewed: Yes Vital Signs On Initial Exam: Initial Vitals Temp Pulse Resp BP Pulse Ox 97.1 F 92 18 136/87 93 08/29/19 05:48 08/29/19 05:48 08/29/19 05:48 08/29/19 05:48 08/29/19 05:48 Vital Signs Reviewed: Yes Appearance: Positive: Well-Appearing - Pt. sitting up in bed, appears to feel unwell pt. nontoxic. Skin: Positive: Warm, Dry Head/Face: Positive: Normal Head/Face Inspection Eyes: Positive: Normal, EOMI, ANDREAS Neck: Positive: Supple Respiratory/Lung Sounds: Positive: Other - Diffuse inspiratory/expiratory wheeze and rhonchi throughout. No accessory muslce use. Speaking in full sentences. Cardiovascular: Positive: Normal, RRR Musculoskeletal: Negative: Edema Left, Edema Right Neurological: Positive: Normal, CN Intact II-III Psychiatric: Positive: Affect/Mood Appropriate Procedures - Sedation Patient Received Moderate/Deep Sedation with Procedure: No Diagnostics - Vital Signs Vital Signs Temp Pulse Resp BP Pulse Ox 08/29/19 05:48 97.1 F 92 18 136/87 93 - Laboratory Result Diagrams: 08/29/19 06:15 08/29/19 06:15 Lab Statement: Any lab studies that have been ordered have been reviewed, and results considered in the medical decision making process. Course/Dx - Course Course Of Treatment: Pt. presenting with wheeze and rhonchi, hx of copd, smoker. Afebrile. O2 saturation 93% on RA. No signs of respiratory distress. Pt. given duoneb. ECG done at 0629 shows a sinus rhythm of 84bpm, normal axis, no STEMI. CXR per radiology: IMPRESSION: #. Small region of chronic interstitial disease/pleural parenchymal scarring at the. peripheral RIGHT midlung zone or recurrent inflammatory infiltrate. #. Stigmata of obstructive lung disease. . Labs are unremarkable. 0745: Re-exam pt. moving air better but still very wheezy. Given another duoneb and steriod. Pt. ambulatory and O2 dropped to high 80's. Pt. given 3rd duoneb and re-exam is feeling much better. Wheezing has completely resovled and is moving air freely. O2 saturation hanging out in low 90's. Pt. states she baseline SOB since lung ca. Discussed admission vs dc home. Pt. request to be discharge home to see how she does on a course of prednisone, zpak and duoneb. Advised pt. to see pcp in 1-2 days. If sxs change or worsen pt. will return to ER. - Diagnoses Differential Diagnosis/HQI/PQRI: Positive: Asthma, Bronchitis, COPD Exacerbation , CO, Pneumonia Provider Diagnoses: COPD exacerbation Discharge ED - Sign-Out/Discharge Documenting (check all that apply): Patient Departure - Discharge Plan Condition: Improved Disposition: HOME Prescriptions: Albuterol/Ipratropium NEB.DANYA* [Duoneb (Albuterol 2.5 MG/Ipratropium 0.5 MG)] 1 neb INH Q4H PRN #30 neb.danya PRN Reason: Wheezing Azithromycin TAB* [Zithromax TAB (Z-ABHISHEK) 250 mg #6 tabs] 2 tab PO .TODAY, THEN 1 DAILY #1 abhishek predniSONE 50 mg TAB [Deltasone 50 mg TAB] 50 mg PO DAILY #4 tab Patient Education Materials: Acute Bronchitis (ED) Referrals: Milton Cagle MD [Primary Care Provider] - Additional Instructions: Please see your PCP tomorrow for recheck Take medication as directed--start antibiotic today and start prednisone tomorrow Use inhaler 2 puffs every 4 hours Avoid smoking Return to ER if symptoms change or worsen - Billing Disposition and Condition Condition: IMPROVED Disposition: Home - Attestation Statements Provider Attestation: I was available for consultation for this patient. I did not evaluate the patient or participate in any medical decision making or disposition decisions unless I am specifically named in the chart as having consulted on the patient. If I have consulted on the patient, please see my own ED note on the patient encounter. Lela Brooks MD
[2019-08-29 06:21] LABS: ABS Basophils 0.1 10^3/ul (0-0.2); ABS Eosinophils 0.2 10^3/ul (0-0.6); ABS Lymphocytes 0.9 10^3/ul (1.0-4.8); ABS Monocytes 0.6 10^3/ul (0-0.8); ABS Neutrophils 6.5 10^3/ul (1.5-7.7); Eosinophil % 1.9 %; Hematocrit 43 % (35-47); Hemoglobin 14.9 g/dL (12.0-16.0); Mean Corpuscular HGB Conc 34 g/dL (31-36); Mean Corpuscular Hemoglobin 33 pg (27-31); Mean Corpuscular Volume 96 fL (80-97); Mean Platelet Volume 7.9 fL (7.4-10.4); Nucleated Red Blood Cells % 0.1; Platelet Count 192 10^3/uL (150-450); Red Blood Count 4.53 10^6 /uL (3.70-4.87); Red Cell Distribution Width 15 % (10-15); White Blood Count 8.1 10^3/uL (3.5-10.8)
--- OUTSIDE RECORDS SUMMARY | 2019-08-29 06:33 | XMS REPORT | Summary of Care ---
:1960 Author Organization [facility] Address [address] [place] [address] Care Team Providers Name Role Phone Milton Cagle Primary Care Provider Reason for Visit Reason Comments Sick fever, hot and cold chills, sore throat, sinus congestion started 08/15, fever started today Encounter Details Date Type Department Care Team Description 08/16/2019 Office Visit [place] Joanie Squires, Viral illness ( Primary Practice TUTOR COORDINATOR Dx) [address] [place] [address] [place] [address] [phone] Allergies Active Allergy Reactions Severity Noted Date Comments Doxycycline GI Reaction High 04/12/2019 Tetracycline 07/28/2007 documented as of this encounter (statuses as of 08/16/2019) Medications Medication Sig Dispensed Refills Start Date End Date Status SPACER/AERO-HOLDING 2 Puffs by Does 1 0 06/16/2008 Active CHAMBERS Does not apply not apply route Kit FOUR TIMES DAILY NEEDED albuterol ZYPREXA 10 MG Oral Tab Take 10 mg by 0 Active mouth EVERY BEDTIME. aspirin (ECOTRIN) 81 MG Take 81 mg by 0 Active Oral Tab EC mouth DAILY. Ibuprofen 200 MG Oral Take 3 Caps by 50 Cap 0 04/19/2013 Active Cap mouth THREE TIMES DAILY NEEDED (pain). Fluoxetine HCl (PROZAC) Take 80 mg by 0 Active 40 MG Oral Cap mouth DAILY. lisinopril (PRINIVIL, TAKE 1 TABLET BY 90 Tab 1 12/14/2018 Active ZESTRIL) 10 MG Oral MOUTH ONCE DAILY TabIndications: Benign hypertension Alprazolam 1 MG Oral Take 1 Tab by 0 Active TABLET SR 24 HR mouth TWICE DAILY. gabapentin (NEURONTIN) Take 1 Cap by 60 Cap 5 03/18/2019 Active 300 MG Oral Cap mouth TWICE DAILY. pantoprazole (PROTONIX) TAKE 1 TABLET BY 60 Tab 5 05/20/2019 Active 40 MG Oral Tab MOUTH TWICE DAILY ECIndications: Acute gastritis, presence of bleeding unspecified, unspecified gastritis type albuterol (PROVENTIL, 3 mL by 120 mL 1 05/25/2019 Active VENTOLIN) (2.5 MG/3ML) Inhalation-SVN 0.083% Inhalation Nebu route EVERY SIX SolnIndications: Acute HOURS NEEDED bacterial (asthma). rhinosinusitis fluticasone (FLONASE) [place] 2 Sprays in 1 Bottle 0 05/25/2019 Active 50 MCG/ACT Nasal nose DAILY. SuspensionIndications: Acute bacterial rhinosinusitis ondansetron (ZOFRAN Take 1 Tab by 30 Tab 0 07/27/2019 Active ODT) 4 MG Oral TABLET mouth THREE TIMES DISPERSIBLE DAILY NEEDED (nausea). OXYcodone-acetaminophen Take 1 Tab by 90 Tab 0 08/03/2019 Active (PERCOCET) 10-325 MG mouth THREE TIMES Oral Tab DAILY NEEDED (chronic pain). Max Daily Amount: 3 Tabs. Chronic pain divalproex sodium Take 250 mg by 0 Active (DEPAKOTE) 250 MG Oral mouth TWICE Tab EC DAILY. oseltamivir (TAMIFLU) Take 1 Cap by 10 Cap 0 08/16/2019 Active 75 MG Oral mouth TWICE CapIndications: Viral DAILY. illness documented as of this encounter (statuses as of 08/16/2019) Active Problems Problem Noted Date PAD (peripheral artery disease) 02/10/2019 Pulmonary emphysema 02/10/2019 Subacute osteomyelitis of foot 02/10/2019 Bipolar affective disorder, currently depressed, moderate 01/21/2018 Benign hypertension 04/17/2016 Foot drop, right 05/07/2015 Shoulder pain, right 05/24/2014 Radiculopathy, cervical 05/24/2014 Atherosclerosis of arteries 05/26/2011 Abdominal pain, other specified site 05/12/2011 Fatty liver 05/20/2010 Gastroparesis 05/20/2010 Other and unspecified hyperlipidemia 04/28/2010 Dysthymic disorder 07/28/2007 Tobacco use disorder 07/28/2007 Panic attack 07/28/2007 Post traumatic stress disorder 07/28/2007 Acute gastritis 05/12/2007 Abdominal pain, unspecified site 04/17/2007 BMI 34.0-34.9,adult Overview: This patient's BMI has been calculated and is above average, and BMI management plan is completed. General patient education discussion including: weight loss link to reduction of risk factors for cardiac and other diseases documented as of this encounter (statuses as of 08/16/2019) Resolved Problems Problem Noted Date Resolved Date Skin ulcer of toe of right foot, limited to breakdown of 02/10/20192018 skin BMI 32.0-32.9,adult 02/27/2011 04/21/2012 documented as of this encounter (statuses as of 08/16/2019) Immunizations Name Administration Dates Next Due Influenza (IM) Preservative Free 05/13/2019, 05/21/2017, 05/26/2016, 05/28/2012, 05/20/2010, 05/18/2009 Influenza (IM) W/Pres 06/05/2015, 05/24/2014 Influenza Virus Vaccine - Whole 06/19/2000 PNEUMOCOCCAL POLYSACCHARIDE VACCINE 05/21/2017 Pneumococcal Conjugate(13 Valent) 05/26/2016 documented as of this encounter Social History Tobacco Use Types Packs/Day Years Used Date Current Every Day Smoker Cigarettes 1 1 Started: 12/24/1968 Smokeless Tobacco: Never Used Alcohol Use Drinks/Week oz/Week Comments No 0 Standard drinks or equivalent 0.0 Sex Assigned at Date Recorded Not on file Job Start Date Occupation Industry Not on file Not on file Not on file Travel History Travel Start Travel End No recent travel history available. documented as of this encounter Last Filed Vital Signs Vital Sign Reading Time Taken Comments Blood Pressure 130/72 08/16/2019 11:06 AM EST Pulse 98 08/16/2019 11:06 AM EST Temperature 38.6 08/16/2019 11:06 AM C (101.4 EST F) Respiratory Rate - - Oxygen Saturation 93% 08/16/2019 11:06 AM EST Inhaled Oxygen Concentration - - Weight 97.5 kg (215 lb) 08/16/2019 11:06 AM EST Height 167.6 cm (5' 6") 08/16/2019 11:06 AM EST Body Mass Index 34.7 08/16/2019 11:06 AM EST documented in this encounter Patient Instructions Patient InstructionsJoanie Puga, DIVINE - 08/16/2019 10:40 AM EMILIE sent in a prescription for tamiflu - as we discussed, if you have the flu this has been shown to reduce the duration of symptoms by 1-2 days, but does increase nausea and vomiting. You can decide if you would like to take this or not, but at least it will be available to you over the holiday. If the flu swab comes back negative I will call you and let you know there's no need to take the tamiflu. Please alternate tylenol 650mg and ibuprofen 600 mg every 4-6 hours to keep your fever under better control. Keep track of which one you have taken last by writing down on a piece of paper. If the fever does not come down with medications, let me know. Get plenty of rest and fluids - don't worry about eating if you don't have an appetite, but keep yourself hydrated! Salt water gargles, cough drops, and hot tea with lemon or honey to help soothe your throat. Continue using your albuterol as needed. Call or return if symptoms worsen or fail to improve. If you develop severe shortness of breath, high fever not relieved with medications, or any other concerning symptoms, please go to the ER. Patient Education Flu The Basics Written by the doctors and editors at [facility] What is the flu?The flu is an infection that can cause fever, cough, body aches, and other symptoms. The most common type of flu is the "seasonal" flu. There are different forms of seasonal flu, for example, "type A " and "type B." All forms of the flu are caused by viruses. The medical term for the flu is "influenza." What are the other types of flu?Besides seasonal flu, there is also the "swine" flu, which caused a worldwide outbreak ("pandemic") in 2009 and 2010, and the bird flu. Bird flu (also known as "tabby flu") is a severe form of the flu that is caused by a type of flu virus that first infected birds. What are the most common flu symptoms?All forms of the flu can cause: Fever (temperature higher than 100F or 37.8C) Extreme tiredness Headache or body aches Cough Sore throat Runny nose Flu symptoms can come on very suddenly. Is the flu dangerous?It can be. Most people get over the flu on their own, without anylasting problems. But some people need to go to the hospital because of the flu. And some people even from it. This is because the flu can cause a serious lung infection called pneumonia. That's why it's important to keep from getting the flu in the first place. People at higher risk of getting very sick from the flu include: People 65 or older Young children (under 5 years old, and especially under 2 years old) women People with certain other medical problems If you or your child is in one of these groups, talk to a doctor or nurse. He or she can help you decide if you or your child needs treatment. In some cases, family members of a person with the flu might also need medicine to help prevent them from getting it. Is there a test for flu?Yes. There are tests for the flu. In most cases, your doctor can tell if you have the flu by your symptoms. But in some cases for example, if you are at risk for having other problems caused by the flu your doctor might do a test for flu. How can I protect myself from the flu?You can: Wash your hands often with soap and water, or use alcohol hand rubs Stay away from people you know are sick Get the flu vaccine every year Some years the flu vaccine is more effective than others.But even in years when it is less effective, it still helps prevent some cases of the flu. It can also help keep you from getting severely ill if you do get the flu. What should I do if I get the flu?If you think you have the flu, stay home, rest, and drink plenty of fluids. You can also take acetaminophen ( sample brand name: Tylenol) to relieve feverand aches. Do not give aspirin or medicines that contain aspirin to children younger than 18. In children, aspirin can cause a serious problem called Austyn syndrome. Most people with the flu get better on their own within 1 to 2 weeks. But you should call your doctor or nurse if you: Have trouble breathing or are short of breath Feel pain or pressure in your chest or belly Get suddenly dizzy Feel confused Have severe vomiting Take your child to the doctor if he or she: Starts breathing fast or has trouble breathing Starts to turn blue or purple Is not drinking enough fluids Will not wake up or will not interact with you Is so unhappy that he or she does not want to be held Gets better from the flu but then gets sick again with a fever or cough Has a fever with a rash If you decide to go to a walk-in clinic or a hospital because of the flu, tell someone right away why you are there. The staff might ask you to wear a mask or to wait someplace where you are less likely to spread your infection. Whether or not you see a doctor or nurse, you should stay home while you are sick with the flu, or keep your child home if he or she is sick. Do not go to work or school until your fever has been gone for at least 24 hours, without taking medicine such as acetaminophen. If you work with patients, suchas in a hospital or clinic, you might need to stay home longer if you are still coughing. Also, always cover your mouth and nose with the inside of your elbow when you cough or sneeze. Can the flu be treated?Yes, people with the flu can get medicines called antiviral medicines. These medicines can help people avoid some of the problems caused by the flu. Not every person with the flu needs an antiviral medicine, but some people do. Your doctor or nurse will decide if you need an antiviral medicine. Antibiotics do not work on the flu. What if I am ?The flu can be very dangerous for women. If you are , it is very important that you get the flu vaccine. You should also avoid taking care of anyonewho has the flu. If you are , call your doctor or nurse right away if: You might have been near someone with the flu. You think you might be coming down with the flu. In women, the symptoms of the flu canget worse very quickly. The flu can even cause trouble breathing or lead to of the woman or her baby. That is why it is so important that you talk to doctor or nurse as soon as you notice any of the flu symptoms listed above. You will need an antiviral medicine if you are and have the flu. All topics are updated as new evidence becomes available and our peer review process is complete. This topic retrieved from [employer] on: Jun 21, 2019. Topic 12085 Version 13.0 Release: 27.4.5 - C27.318 [employer]. and/or its affiliates.All rights reserved. Consumer Information Use and Disclaimer This information is not specific medical advice and does not replace information you receive from your health care provider. This is only a brief summary of general information. It does NOT include allinformation about conditions, illnesses, injuries, tests, procedures, treatments, therapies, discharge instructions or life-style choices that may apply to you. You must talk with your health care provider for complete information about your health and treatment options. This information should not beused to decide whether or not to accept your health care provider's advice, instructions or recommendations. Only your health care provider has the knowledge and training to provide advice that is right for you.The use of [employer] content is governed by the [employer] Terms of Use. 2019 [employer]. All rights reserved. Copyright 2019[employer]. and/or its affiliates.All rights reserved. documented in this encounter Progress Notes Joanie Puga NP - 08/16/2019 10:40 AM EST PATIENT: Mayda Mansfield : 1960 DATE OF SERVICE: 08/16/2019 CHIEF COMPLAINT: Chief Complaint Patient presents with Sick fever, hot and cold chills, sore throat, sinus congestion started 08/15, fever started today Subjective HISTORY OF PRESENT ILLNESS: Mayda Mansfield is a 58-y.o. female. HPI Sick visit. Pmh significant for chronic emphysema. Albuterol inhaler used this am - helped a bit with the coughing production. Woke up yesterday am 3:30 with fever, headache, productive cough, sinus congestion, throat sore, chest hurts, lungs hurt. Productive dark yellow. Tmax 101.4. Flu vaccine was in April. sick 2 weeks ago with URI. Past Medical History: Diagnosis Date BMI 34.0-34.9,adult Dysthymic disorder 07/28/2007 NERVOUS BREAKDOWN Fatty liver Gastroparesis ??? normal egd 10/23 emptying scan 07/25 positive History of breast surgery cyst removed r breast Hypertension Irritable bowel syndrome Lipidoses Lung cancer (HCC) 2018 adenocarcinoma RUL Menarche age 12, G2. P2 SAL[place] (obstructive sleep apnea) Other postprocedural status(V45.89) benign rt breast lumpectomy PAD (peripheral artery disease) (HCC) KELLIE right worse than left .s/p left angioplasty Panic attack 07/28/2007 Post traumatic stress disorder 07/28/2007 Postmenopausal Tobacco use disorder 07/28/2007 Unspecified gastritis and gastroduodenitis without mention of hemorrhage 05/19/2007 failed prilosec Vitamin D deficiency Family History Problem Relation Age of Onset Diabetes Father Hypertension Father Hypertension Mother fa Cancer Other Maternal cousin Breast ca Cancer Sister sister with ovarian cancer Anesth Problems No family history Arthritis No family history Clotting Disorder No family history Heart Disease No family history Kidney Disease No family history Thyroid Disease No family history Current Outpatient Medications Medication Sig albuterol (PROVENTIL, VENTOLIN) (2.5 MG/3ML) 0.083% Inhalation Nebu Soln 3 mL by Inhalation-SVN route EVERY SIX HOURS NEEDED (asthma). Alprazolam 1 MG Oral TABLET SR 24 HR Take 1 Tab by mouth TWICE DAILY. aspirin (ECOTRIN) 81 MG Oral Tab EC Take 81 mg by mouth DAILY. divalproex sodium (DEPAKOTE) 250 MG Oral Tab EC Take 250 mg by mouth TWICE DAILY. Fluoxetine HCl (PROZAC) 40 MG Oral Cap Take 80 mg by mouth DAILY. fluticasone (FLONASE) 50 MCG/ACT Nasal Suspension [place] 2 Sprays in nose DAILY. gabapentin (NEURONTIN) 300 MG Oral Cap Take 1 Cap by mouth TWICE DAILY. Ibuprofen 200 MG Oral Cap Take 3 Caps by mouth THREE TIMES DAILY NEEDED (pain). lisinopril (PRINIVIL, ZESTRIL) 10 MG Oral Tab TAKE 1 TABLET BY MOUTH ONCE DAILY ondansetron (ZOFRAN ODT) 4 MG Oral TABLET DISPERSIBLE Take 1 Tab by mouth THREE TIMES DAILY NEEDED (nausea). oseltamivir (TAMIFLU) 75 MG Oral Cap Take 1 Cap by mouth TWICE DAILY. OXYcodone-acetaminophen (PERCOCET) 10-325 MG Oral Tab Take 1 Tab by mouth THREE TIMES DAILY NEEDED (chronic pain). Max Daily Amount: 3 Tabs. Chronic pain pantoprazole (PROTONIX) 40 MG Oral Tab EC TAKE 1 TABLET BY MOUTH TWICE DAILY SPACER/AERO-HOLDING CHAMBERS Does not apply Kit 2 Puffs by Does not apply route FOUR TIMES DAILY NEEDED albuterol ZYPREXA 10 MG Oral Tab Take 10 mg by mouth EVERY BEDTIME. No current facility-administered medications for this visit. Allergies Allergen Reactions Doxycycline GI Reaction Tetracycline Social History Socioeconomic History Marital status: Spouse name: Not on file Number of children: Not on file Years of education: Not on file Highest education level: Not on file Occupational History Not on file Social Needs Financial resource strain: Not on file Food insecurity Worry: Not on file Inability: Not on file Transportation needs Medical: Not on file Non-medical: Not on file Tobacco Use Smoking status: Current Every Day Smoker Packs/day: 1.00 Years: 1.00 Pack years: 1.00 Types: Cigarettes Start date: 12/24/1968 Smokeless tobacco: Never Used Substance and Sexual Activity Alcohol use: No Alcohol/week: 0.0 standard drinks Drug use: Yes Types: Prescription Sexual activity: Yes Partners: Male Comment: Lifestyle Physical activity Days per week: Not on file Minutes per session: Not on file Stress: Not on file Relationships Social connections Talks on phone: Not on file Gets together: Not on file Attends worship service: Not on file Active member of club or organization: Not on file Attends meetings of clubs or organizations: Not on file Relationship status: Not on file Intimate partner violence Fear of current or ex partner: Not on file Emotionally abused: Not on file Physically abused: Not on file Forced sexual activity: Not on file Other Topics Concern Not on file Social History Narrative Not on file REVIEW OF SYSTEMS: Review of Systems Constitutional: Positive for chills, fever and malaise/fatigue. HENT: Positive for congestion, sinus pain and sore throat. Negative for ear discharge and ear pain. Eyes: Negative for pain, discharge and redness. Respiratory: Positive for cough, sputum production (dark yellow), shortness of breath and wheezing. Cardiovascular: Positive for chest pain. Negative for palpitations. Gastrointestinal: Positive for nausea. Negative for abdominal pain, constipation , diarrhea and vomiting. Genitourinary: Negative for dysuria, frequency and urgency. Musculoskeletal: Body aches Neurological: Positive for dizziness and headaches. Objective PHYSICAL EXAM: VITALS: BP 130/72 (BP Location: Left arm, Patient Position: Sitting) | Pulse 98 | Temp 101.4 F (38.6 C) (Tympanic) | Ht 5' 6" (1.676 m) | Wt 215 lb (97.5 kg) | LMP 05/17/2014 | SpO2 93%| BMI 34.70 kg/m Body mass index is 34.7 kg/m. Physical Exam Vitals signs and nursing note reviewed. Constitutional: General: She is not in acute distress. Appearance: Normal appearance. She is well-developed. She is not ill- appearing or toxic-appearing. HENT: Right Ear: Tympanic membrane, ear canal and external ear normal. No mastoid tenderness. Tympanic membrane is not erythematous, retracted or bulging. Left Ear: Tympanic membrane, ear canal and external ear normal. No mastoid tenderness. Tympanic membrane is not erythematous, retracted or bulging. Nose: Mucosal edema (erythema) present. Right Sinus: No maxillary sinus tenderness or frontal sinus tenderness. Left Sinus: No maxillary sinus tenderness or frontal sinus tenderness. Mouth/Throat: Mouth: Mucous membranes are moist. Pharynx: Oropharynx is clear. Uvula midline. Posterior oropharyngeal erythema present. No oropharyngeal exudate. Tonsils: No tonsillar exudate. Swellin+ on the right. 1+ on the left. Eyes: Conjunctiva/sclera: Conjunctivae normal. Cardiovascular: Rate and Rhythm: Normal rate and regular rhythm. Heart sounds: Normal heart sounds. Pulmonary: Effort: Pulmonary effort is normal. Breath sounds: Normal breath sounds. No wheezing, rhonchi or rales. Lymphadenopathy: Head: Right side of head: No submental, submandibular or tonsillar adenopathy. Left side of head: No submental, submandibular or tonsillar adenopathy. Cervical: No cervical adenopathy. Right cervical: No superficial cervical adenopathy. Left cervical: No superficial cervical adenopathy. Upper Body: Right upper body: No supraclavicular adenopathy. Left upper body: No supraclavicular adenopathy. Neurological: Mental Status: She is alert. Psychiatric: Behavior: Behavior is cooperative. ASSESSMENT / IMPRESSION: ICD-9-CM ICD-10-CM 1. Viral illness 079.99 B34.9 oseltamivir (TAMIFLU) 75 MG Oral Cap STREP A ANTIGEN (AMB POCT) THROAT STREP SCREEN CULTURE FLU A/FLU B/RSV PCR ASSAY (TESTED AT [facility] ONLY) FLU A/FLU B/RSV PCR ASSAY (TESTED AT [facility] ONLY) THROAT STREP SCREEN CULTURE Results for orders placed or performed in visit on 08/16/19 STREP A ANTIGEN (AMB POCT) Result Value Ref Range Strep A Antigen (POCT) Negative Negative Plan 1. Viral illness Strep negative. Will send in tamiflu - discussed risks vs benefits, she thinks probably not going to take but this way she will have it if needed over the holidays. If flu swab is negative will let her know she can stop. I sent in a prescription for tamiflu - as we discussed, if you have the flu this has been shown to reduce the duration of symptoms by 1-2 days, but does increase nausea and vomiting. You can decide if you would like to take this or not, but at least it will be available to you over the holiday. If the flu swab comes back negative I will call you and let you know there's no need to take the tamiflu. Please alternate tylenol 650mg and ibuprofen 600 mg every 4-6 hours to keep your fever under better control. Keep track of which one you have taken last by writing down on a piece of paper. If the fever does not come down with medications, let me know. Get plenty of rest and fluids - don't worry about eating if you don't have an appetite, but keep yourself hydrated! Salt water gargles, cough drops, and hot tea with lemon or honey to help soothe your throat. Continue using your albuterol as needed. Call or return if symptoms worsen or fail to improve. If you develop severe shortness of breath, high fever not relieved with medications, or any other concerning symptoms, please go to the ER. - oseltamivir (TAMIFLU) 75 MG Oral Cap; Take 1 Cap by mouth TWICE DAILY. Dispense: 10 Cap; Refill: 0 - STREP A ANTIGEN (AMB POCT) - THROAT STREP SCREEN CULTURE; Future - FLU A/FLU B/RSV PCR ASSAY (TESTED AT [facility] ONLY); Future - FLU A/FLU B/RSV PCR ASSAY (TESTED AT [facility] ONLY) - THROAT STREP SCREEN CULTURE Author: Joanie Puga NP 08/16/2019 12:22 documented in this encounter Plan of Treatment Date Type Specialty Care Team Description 08/29/2019 Hospital Encounter [facility] Jaycob Steel MD Short Procedure [address] [place] [address] 08/29/2019 GI Procedure Gastroenterology Jaycob Steel MD [address] [place] [address] 08/29/2019 Surgery [facility] Jaycob Steel MD ENDOSCOPY UPPER GI [address] [place] [address] [phone] 09/05/2019 Ancillary Procedure Radiology 09/05/2019 Ancillary Procedure Radiology Name Type Priority Associated Diagnoses Date/Time FLU A/FLU B/RSV PCR ASSAY Lab Routine Viral illness 08/16/2019 11:43 AM EST (TESTED AT [facility] ONLY) Name Type Priority Associated Diagnoses Order Schedule THROAT STREP SCREEN Lab Routine Viral illness 1 Occurrences starting CULTURE 08/16/2019 until 02/12/2020 FLU A/FLU B/RSV PCR Lab Routine Viral illness 1 Occurrences starting ASSAY (TESTED AT [facility] 08/16/2019 until 02/12/2020 LAB ONLY) Health Maintenance Due Date Last Done Comments MEDICARE ANNUAL WELLNESS 1960 VISIT DTaP/Tdap/Td Vaccines (1 - 12/24/1970 Tdap) ZOSTER IMMUNIZATION SERIES 12/24/2009 (1 of 2) DEPRESSION SCREENING 06/21/2020 06/21/2019 MAMMOGRAM (SCREENING) 06/21/2020 06/21/2019, 01/25/2018, 10/13/2016, Additional history exists DIABETES SCREENING 08/04/2020 08/04/2019, 01/21/2018, 05/21/2017, Additional history exists LIPID DISORDER SCREENING 08/04/2020 08/04/2019, 12/20/2015, 06/05/2015, Additional history exists PAP SMEAR 06/21/2022 06/21/2019, 12/20/2015, 12/20/2015, Additional history exists Colonoscopy 06/27/2023 06/27/2013, 06/27/2013, 06/27/2013, Additional history exists PNEUMOCOCCAL 0-64 YRS Completed 05/21/2017, 05/26/2016 INFLUENZA VACCINE Completed 05/13/2019, 05/21/2017, 05/26/2016, Additional history exists HEPATITIS A IMMUNIZATION Aged Out No longer eligible SERIES based on patient's age to complete this topic HPV IMMUNIZATION SERIES Aged Out No longer eligible based on patient's age to complete this topic MENINGOCOCCAL VACCINE IMM Aged Out No longer eligible based on patient's age to complete this topic documented as of this encounter Goals Goal Patient Goal Associated Recent Patient-Stated? Author Type Problems Progress Blood Pressure Blood Pressure 130/72 No Gurjit, < 140/90 (08/16/2019 MD Milton 11:06 AM EST) Note: This is an individualized treatment (blood pressure) goal for Mayda Mansfield: Displayed above (on the left) is your goal for blood pressure control. Your most recent blood pressure is also shown above, on the right. You should try to achieve blood pressures that are lower than your goal listed above (on the left). Smoking Cessation COPD No Milton Cagle MD Note: This is an individualized treatment (COPD) goal for Mayda Mansfield: Quit smoking immediately! Your provider has information and resources that may help you to quit. Depression screen (PHQ-9) total score < 5 Depression No Milton Cagle MD Note: This is an individualized treatment (depression) goal for Mayda Mansfield: Displayed above is your goal for a depression screening (PHQ-9) score that would indicate good control of your depression. Lifestyle - Current Smoker Lifestyle No Milton Cagle MD Note: 1. Set a quit date 2. Use of medications-talk with doctor about current medications for nicotine replacement (patch, gum, lozenges, , buprupion) 3. Gradually reduce the number of cigarettes daily. This will help to eventually stop. 4. Connect to behavior counseling-[facility] Quit lines ([phone] or [place]-1- [phone]), stop smoking groups-[facility] or Weight loss vs. 18 mo max Lifestyle 7 (08/16/2019 11:06 AM EST) No Milton Cagle MD (lbs) >= 10 Note: This is an individualized lifestyle goal for Mayda Mansfield: Your body mass index (BMI) is more than 30. You should lose weight. A reasonable starting goal is to lose 10 pounds. Displayed above is how many pounds you have lost thus far towards your 10 pound weight loss goal. Keep a regular sleep schedule Lifestyle No Milton Cagle MD Note: This is an individualized lifestyle goal for Mayda Mansfield: Please maintain a regular sleep schedule. This may help with some symptoms of depression. Keep immunizations current Lifestyle No Milton Cagle MD Note: This is an individualized lifestyle goal for Mayda Mansfield: Please be sure to keep up-to-date on recommended immunizations. For example, this would include a yearly influenza vaccine. Immunization status can be seen by looking at the Health Maintenance sections of your [facility], Plan of Care, and any After Visit Summaries. Take all prescribed medications as directed Self-management No Milton Cagle MD Note: This is an individualized self-management goal for Mayda Mansfield: Please take all prescribed medications as directed. 1. Do not skip doses. If you cannot afford your medications, talk with your doctor. 2. Use a pill reminder system such as a pill box if needed. Your pharmacist can help you with this. 3. Contact your Pharmacy 5 days before your medication runs out. If you cannot take your medications for any reasons, talk with your doctor. 4. Please bring all of your medication bottles and inhalers (or a list of all your medications/inhalers) with you to every visit. Potential barriers to meeting all of your care plan goals will continue to be addressed on an ongoing basis. documented as of this encounter Procedures Procedure Name Priority Date/Time Associated Diagnosis Comments STREP A ANTIGEN Routine 08/16/2019 11:43 AM Viral illness Results for this (AMB POCT) EST procedure are in the results section. documented in this encounter Results STREP A ANTIGEN (AMB POCT) (08/16/2019 11:43 AM EST) Strep A Antigen Negative Negative [facility] (POCT) POCT Control Line Present Present [facility] POCT Strep A Antigen Yes, Sent for [facility] Confirm (POCT) Confirmation POCT Lot Number [id number] [facility] POCT Expiration Date 06/2020 [facility] POCT Specimen Performing Organization Address City/State/Zipcode Phone Number [facility] [address] [place] [address] documented in this encounter Visit Diagnoses Diagnosis Gastroesophageal reflux disease, esophagitis presence not specified Abdominal pain, epigastric Diagnosis Viral illness Unspecified viral infection, in conditions classified elsewhere and of unspecified site documented in this encounter Guarantor Name Account Type Relation to Date of Phone Billing Patient Address Mayda Mansfield Personal/Family 1960 [address] [phone] [place], [place] (Work) [address] documented as of this encounter
--- OUTSIDE RECORDS SUMMARY | 2019-08-29 06:33 | XMS REPORT ---
:1960 Author Organization [facility] Care Team Providers Name Role Phone Zhane Gregory Primary Care Physician Unavailable Allergies, Adverse Reactions, Alerts Allergy Code CodeSystem Reaction Severity Criticality Status Start Substance Date Tetracyclines Rash Moderate Active Medications Medication Medication Medication Start Stop Route Dose Status Fill Code CodeSystem Date Date Instructions alprazolam 903756 RxNorm 2019-0 oral 1 mg 1 active Take 1 tablet 7-12 tablet by mouth extended three times a release day as needed 24 hr for 30 day(s) three times a day lithium 666766 RxNorm 2019- oral 300 mg 1 completed Take 1 tablet carbonate 07-11 tablet twice a day extended release twice a day alprazolam 130906 RxNorm 2019- oral 1 mg 1 completed Take 1 tablet 5-08 07-10 tablet by mouth extended three times a release day as needed 24 hr for 30 day(s) three times a day fluoxetine 292403 RxNorm oral 40 mg 2 active Take 2 capsule capsule once once a a day for 30 day day(s) prazosin 333409 RxNorm 2019-0 oral 1 mg active for 30 9-10 capsule day(s) pantoprazole 827981 RxNorm oral 40 mg active for 30 tablet,de day(s) layed release (DR/EC) olanzapine 439014 RxNorm 2019-0 oral 10 mg 1 active Take 1 tablet 9-10 tablet at at bedtime bedtime for 30 day(s) alprazolam 457041 RxNorm 2019- oral 1 mg 1 completed Take 1 tablet 05-03 tablet by mouth extended three times a release day as needed 24 hr for 30 day(s) three times a day quetiapine 823355 RxNorm 2019- oral 100 mg 1 completed Take 1 tablet 4- 07-01 tablet twice a day twice a for 30 day(s) day prazosin 160938 RxNorm 2019- oral 2 mg completed for 30 1- 09-10 capsule day(s) olanzapine 969496 RxNorm 2019- oral 10 mg 1 completed Take 1 tablet 03-27 tablet at at bedtime bedtime for 30 day(s) oxycodone-acet 0684547 RxNorm oral 10-325 mg active for 30 aminophen 3-06 tablet day(s) Problems Problem Name Code CodeSystem Alternate Alternate Start End Status Narrative Code CodeSystem Date Date 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, recurrent, 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, unspecified Relevant diagnostic tests/laboratory data Narrative No Information Procedures Procedure Code CodeSystem Target Date of Status Service Device Device Device Name Site Procedure Delivery Code Name UID Location Psychotherap [id number] SNOMED-CT () 2019-01-04 complete Mental y, 45 04 d Health- minutes with [place] patient [address], [id number] Office or [id number] SNOMED-CT () 2019-01-04 complete Mental other 7 d Health- outpatient Mikey visit for [address] [id number] patient, [phone] which requires at least 2 of these 3 cannon components: An expanded problem focused history; An expanded problem focused examination; Medical decision making of low Office or 977569 SNOMED-CT () 2019-02-24 complete Mental other 7 d Health- outpatient Mikey visit for [address] [id number] patient, [phone] which requires at least 2 of these 3 cannon components: An expanded problem focused history; An expanded problem focused examination; Medical decision making of low Office or 220788 SNOMED-CT () 2019-04-26 complete Mental other 7 d Health- outpatient Mikey visit for [address] [id number] patient, [phone] which requires at least 2 of these 3 cannon components: An expanded problem focused history; An expanded problem focused examination; Medical decision making of low Office or [id number] SNOMED-CT () 2019-06-21 complete Mental other 7 d Health- outpatient [place] visit for [address], established [id number] patient, [phone] which requires at least 2 of these 3 cannon components: An expanded problem focused history; An expanded problem focused examination; Medical decision making of low Office or [id number] SNOMED-CT () 2018-11-16 complete Mental other 7 d Health- outpatient Mikey visit for [address], established [id number] patient, [phone] which requires at least 2 of these 3 cannon components: An expanded problem focused history; An expanded problem focused examination; Medical decision making of low Office or 922619 SNOMED-CT () 2019-04-26 complete Mental other 6 d Health- outpatient [place] visit for [address], established [id number] patient, [phone] which requires at least 2 of these 3 cannon components: A problem focused history; A problem focused examination; Straightforw césar medical decision making. [place] SNOMED-CT () 2019-01-18 complete Mental d [address], [id number] SNOMED-CT () 2019-02-25 complete Mental d [address], [id number] SNOMED-CT () 2019-03-11 complete Mental d [address], [id number] SNOMED-CT () 2019-03-25 complete Mental d [address], [id number] SNOMED-CT () 2019-04-08 complete Mental d [address], [id number] SNOMED-CT () 2019-04-25 complete Mental d [address], [id number] [id number] Encounters/Encounter Diagnoses Encounter Name Encounter Diagnosis Diagnosis Diagnosis Date of Service Code Code Name CodeSystem Diagnosis Delivery Location Psychotherapy - [id number] Post-traumati SNOMED-CT 2019-07-04 Behavioral Individual 30 c stress Health min disorder, Clinic , , unspecified , Vital Signs No Information Social History Element Description Description Start End Code CodeSystem AdditionalInfo Date Date SexAssignedAtBirth Female 1961-0 F AdministrativeGender 5-10 Hospital Discharge Instructions Reason For Referral Medical Equipment FDA Assessments
--- OUTSIDE RECORDS SUMMARY | 2019-08-29 06:33 | XMS REPORT | Summary of Care ---
:1960 Author Organization [facility] Address [address] [place] [address] Care Team Providers Name Role Phone Milton Cagle Primary Care Provider Reason for Referral Refer to Department Only (Routine) Status Reason Specialty Diagnoses / Referred By Referred To Procedures Contact Contact Pending GASTROENTEROLOGY / Diagnoses Epigastric pain Gastroesophageal reflux disease, esophagitis presence not specified [place] [facility] Review Gastroenterology Amy Corrales Gastroenterol RADIOLOGY PHYSICIAN ASSISTANT ogy [address] [place] [address] [place] Phone: [phone] Phone: Scheduling Instructions Is the patient on cpap machine?No Is the patient on oxygen?No BP 120/78 | Pulse 72 | Temp 97.5 F (36.4 C) | Ht 5' 6" (1.676 m) | Wt 219 lb (99.3 kg) | LMP 05/17/2014 | BMI 35.35 kg/m BMI Readings from Last 4 Encounters: 08/04/19 : 35.35 kg/m 06/21/19 : 35.09 kg/m 05/25/19 : 35.35 kg/m 04/12/19 : 34.22 kg/m Controlled Substance Medications: Alprazolam and OXYcodone-acetaminophen Anticoagulant Medications: Psychiatric/Antianxiety Medications: Alprazolam, Fluoxetine HCl, and olanzapine Antiretroviral Medications: Outpatient Procedure (Routine) Status Reason Specialty Diagnoses / Referred By Referred To Procedures Contact Contact Pending Review Diagnoses Epigastric pain Gastroesophageal reflux disease, esophagitis presence not specified Amy Linda NP [address] [place] [address] Reason for Visit Reason Comments Abdominal Pain New pt. referred by Dr. Cagle for abdominal/epigastric pain. Refer to Department Only (Routine) Status Reason Specialty Diagnoses / Referred By Referred To Procedures Contact Contact Pending Review Gastroenterology Diagnoses Epigastric pain Milton Cagle [place] MD Gastroenterolog [address] [place] [address] RD y/Hepatology [address] [address] Road Phone: [place], [place] [phone] Fax: Encounter Details Date Type Department Care Team Description 08/04/2019 Office Visit Ophelia Linda Gastroesophageal reflux disease , esophagitis presence not specified (Primary Dx); Gastroenterology/He Amy Corrales NP Epigastric pain; patology 1 [facility] Lipid screening [address] [place] [address] [place] [address] [place] [address] [phone] Allergies Active Allergy Reactions Severity Noted Date Comments Doxycycline GI Reaction High 04/12/2019 Tetracycline 07/28/2007 documented as of this encounter (statuses as of 08/04/2019) Medications Medication Sig Dispensed Refills Start Date [...] HOURS NEEDED bacterial (asthma). rhinosinusitis fluticasone (FLONASE) Escalon 2 Sprays in 1 Bottle 0 05/25/2019 [...] MG Oral mouth TWICE Tab EC DAILY. documented as of this encounter (statuses as of 08/04/2019) Active Problems Problem Noted Date PAD (peripheral [...] as of this encounter (statuses as of 08/04/2019) Resolved Problems Problem Noted Date Resolved Date Skin ulcer of toe of right foot, limited to breakdown of 02/10/20192018 skin BMI 32.0-32.9,adult 02/27/2011 04/21/2012 documented as of this encounter (statuses as of 08/04/2019) Immunizations Name Administration Dates Next Due Influenza [...] Sign Reading Time Taken Comments Blood Pressure 120/78 08/04/2019 10:55 AM EST Pulse 72 08/04/2019 10:55 AM EST Temperature 36.4 08/04/2019 10:55 AM EST C (97.5 F) Respiratory Rate - - Oxygen Saturation - - Inhaled Oxygen Concentration - - Weight 99.3 kg (219 lb) 08/04/2019 10:55 AM EST Height 167.6 cm (5' 6") 08/04/2019 10:55 AM EST Body Mass Index 35.35 08/04/2019 10:55 AM EST documented in this encounter Patient Instructions Patient InstructionsAmy Linda NP - 08/04/2019 11:00 AM EST1. Get labs drawn today 2. Plan on repeating the upper endoscopy in [place]. [facility] [place] [facility] 3. Continue the Pantoprazole daily 4. Will hold on any additional medications at this time given what you are already taking 5. Follow up at least 1 week after the above If you have not already been screened for Hepatitis C we would be happy to do that for you today. Currently we recommend screening for hepatitis C virus (HCV ) infection in persons at high risk for infection, and to adults born between 1945 and 1965. Thank you for choosing the [facility] for your needs today! -Amy Linda N.P. , Please call if you need to cancel or change your appt. time. Thank you for choosing [facility] for your health care needs, and for consulting with [facility] today. You may receive a survey following this visit, or after an upcoming hospital stay. As easy as it is to feel overloaded with surveys, we are required to send them out randomly and they do provide important feedback so that we may serve your needs in the best way. Please do take the few minutes required to complete the survey if you receive one. We get them too, after seeing the doctor, and they only take a few minutes to complete. documented in this encounter Progress Notes Amy Linda NP - 08/04/2019 11:00 AM EST PATIENT: Mayda Mansfield : 1960 DATE OF SERVICE: 08/04/2019 REFERRING PRACTITIONER: Milton Cagle PRIMARY CARE PROVIDER: Milton Cagle CHIEF COMPLAINT: Chief Complaint Patient presents with Abdominal Pain New pt. referred by Dr. Cagle for abdominal/epigastric pain. Subjective HISTORY OF PRESENT ILLNESS: Mayda Mansfield is a 58-y.o. female who presents for a consultation for evaluation of gastroesophageal reflux disease. Onset was problem is longstanding, this episode began a few months ago. Symptoms have been unchanged since. Diagnosed previously: yes; several years by EGD Symptoms include: heartburn, hoarseness and midepigastric pain. She denies dysphagia. She has not lost weight. She denies melena, hematochezia, hematemesis, and coffee ground emesis. Aggravated by: her current lifestyle, she admits that she is not very active, naps most of the day, eats one meal daily, often fast food, smokes cigarettes 1pk/day, drinks soda all day Alleviated by: None. She is currently on twice daily PPI, reports she had been taking Zantac BID aswell until it was pulled from the market Evaluation to date: Last EGD 2009 Medical therapy in the past has included Protonix, Zantac. The patient denies: dysphagia, dynophagia, weight loss, bleeding, oropharynx esophageal manifestation symptoms. Past Medical History: Diagnosis Date BMI 34.0-34.9,adult [...] hemorrhage 05/19/2007 failed prilosec Vitamin D deficiency Past Surgical History: Procedure Laterality Date ARTERIAL FLOW STUDY 2010 normal BILAT TUBAL DESTRUCT NEC COLONOSCOPY [id number] COLONOSCOPY N/A 06/27/2013 Procedure: COLONOSCOPY; Surgeon: Jesus Lambert MD; Location: [facility] ; Laterality: N/A; COLONOSCOPY COLONOSCOPY DIAGNOSTIC 2010 5 years EGD 2010 normal EGD (NEWBERRY / NON NEWBERRY) ESOPHAGOGASTRODUODENOSCOPY (EGD) WITH COLOSED BIOPSY [id number] repeat 10/23 normal FOOT TOE ARTHROPLASTY NH BX/REMV,LYMPH NODE,DEEP AXILL 1993 NH EXCISION TUMOR SOFT TISSUE FOOT/TOE SUBQ <1.5CM right plantar's wart NH KNEE SCOPE,SHAVE ARTICULAR CART left NH LIGATE FALLOPIAN TUBE NH REMOVAL GALLBLADDER 1998 Family History Problem Relation Age of Onset [...] DAILY. fluticasone (FLONASE) 50 MCG/ACT Nasal Suspension Escalon 2 Sprays in nose DAILY. gabapentin (NEURONTIN) [...] by mouth THREE TIMES DAILY NEEDED (nausea). OXYcodone-acetaminophen (PERCOCET) 10-325 MG Oral Tab Take [...] file Gets together: Not on file Attends congregation service: Not on file Active member of [...] Narrative Not on file REVIEW OF SYSTEMS: All remaining review of systems was negative except for as noted in the history of present illness/subjective. Objective PHYSICAL EXAMINATION: VITALS: BP 120/78 | Pulse 72 | Temp 97.5 F (36.4 C) | Ht 5' 6" ( 1.676 m) | Wt 219 lb (99.3 kg) | LMP 05/17/2014 | BMI 35.35 kg/m Body mass index is 35.35 kg/m. GENERAL: alert, oriented, no acute distress. HEENT: No scleral icterus, MMM Psych: Affect normal Neck: no lymphadenopathy LUNGS: clear to auscultation bilaterally. HEART: regular rhythm, no murmurs, no gallops, no rubs. ABDOMEN: general exam: soft, diffusely-tender, non-distended, without masses or organomegaly, normal active bowel sounds, Guevara's sign negative. Extrmities: no edema Skin: clear Neuro: gait normal, a&o x 3 RECTAL: exam deferred. IMPRESSION: ICD-9-CM ICD-10-CM 1. Gastroesophageal reflux disease, esophagitis presence not specified 530.81 K21.9 EGD ([facility] / NON [facility]BERRY) REFER TO GI 2. Epigastric pain 789.06 R10.13 REFER TO GI EGD ([facility]Y / NON NEWBERRY) REFER TO GI COMPREHENSIVE METABOLIC PANEL CBC WITH DIFFERENTIAL 3. Lipid screening V77.91 Z13.220 LIPID PROFILE High risk for Mckinnon's, will need repeat endoscopy. Discussed diet and current lifestyle with her, which she was resistant to, will continue to provide education of healthy eating and lifestyle habitsto help with her symptoms. Plan PLAN: Nonpharmacologic treatments were discussed including: eating smaller meals, elevation of the head of bed at night, avoidance of caffeine, chocolate, nicotine and peppermint, avoiding tight fitting clothing. Patient Instructions 1. Get labs drawn today 2. [place] you to schedule this, [facility] 3. Continue the Pantoprazole daily 4. Will hold on any additional medications at this time given what you are already taking 5. Follow up at least 1 week after the above If you have not already been screened for Hepatitis C we would be happy to do that for you today. Currently we recommend screening for hepatitis C virus (HCV ) infection in persons at high risk for infection, and to adults born between 1945 and 1965. Thank you for choosing the [facility] for your needs today! -Amy Linda N.P. , Please call if you need to cancel or change your appt. time. Thank you for choosing [facility] for your health care needs, and for consulting with [facility] today. You may receive a survey following this visit, or after an upcoming hospital stay. As easy as it is to feel overloaded with surveys, we are required to send them out randomly and they do provide important feedback so that we may serve your needs in the best way. Please do take the few minutes required to complete the survey if you receive one. We get them too, after seeing the doctor, and they only take a few minutes to complete. Author: Amy Linda NP 08/04/2019 11:22 documented in this encounter Plan of Treatment Date Type Specialty Care Team Description 08/06/2019 Lab Internal Medicine 08/15/2019 Ancillary Procedure Radiology 08/15/2019 Ancillary Procedure Radiology Name Type Priority Associated Diagnoses Date/Time COMPREHENSIVE METABOLIC Lab Routine Epigastric pain 08/04/2019 11:24 AM EST PANEL CBC WITH DIFFERENTIAL Lab Routine Epigastric pain 08/04/2019 11:24 AM EST LIPID PROFILE Lab Routine Lipid screening 08/04/2019 11:24 AM EST Name Type Priority Associated Diagnoses Order Schedule EGD ([facility] / NON Referral Routine Epigastric pain Expected: 08/04/2019, [facility]ERRY) Gastroesophageal reflux Expires: 08/04/2020 disease, esophagitis presence not specified REFER TO GI Referral Routine Epigastric pain Expected: 08/04/2019, Gastroesophageal reflux Expires: 08/04/2020 disease, esophagitis presence not specified Health Maintenance Due Date Last Done Comments MEDICARE ANNUAL WELLNESS 1960 VISIT DTaP/Tdap/Td Vaccines (1 - 12/24/1970 Tdap) ZOSTER IMMUNIZATION SERIES 12/24/2009 (1 of 2) LIPID DISORDER SCREENING 12/19/2016 12/20/2015, 06/05/2015, 05/20/2010, Additional history exists DIABETES SCREENING 01/21/2019 01/21/2018, 05/21/2017, 04/17/2016, Additional history exists DEPRESSION SCREENING 06/21/2020 06/21/2019 MAMMOGRAM (SCREENING) 06/21/2020 06/21/2019, 01/25/2018, 10/13/2016, Additional history exists PAP SMEAR 06/21/2022 06/21/2019, [...] Type Problems Progress Blood Pressure Blood Pressure 120/78 No Gurjit, < 140/90 (08/04/2019 MD Milton 10:55 AM EST) Note: This is an individualized treatment (blood pressure) goal for Mayda Elaine Donal: Displayed above (on the left) is your [...] to eventually stop. 4. Connect to behavior counseling-[facility] Quit lines ([phone] or [facility]- [phone]), stop smoking groups-[facility] or Weight loss vs. 18 mo max Lifestyle 3 (08/04/2019 10:55 AM EST) No Milton Cagle MD (lbs) [...] Take all prescribed medications as directed Self-management Milton Garza MD Note: This is an individualized self-management [...] ongoing basis. documented as of this encounter Results Not on filedocumented in this encounter Visit Diagnoses Diagnosis Epigastric pain Abdominal pain, epigastric Gastroesophageal reflux disease, esophagitis presence not specified Lipid screening Screening for lipoid disorders documented in this encounter Guarantor Name Account Type Relation to Date of Phone Billing Patient Address Mayda Mansfield Personal/Family 1960 [address] [phone] [place], [place] (Work) [address] documented as of this encounter
[2019-08-29 06:41] LABS: Albumin 3.6 g/dL (3.2-5.2); Albumin/Globulin Ratio 1.2 (1-3); BUN/Creatinine Ratio 22.1 (8-20); C Reactive Protein 11.1 mg/L (<8.01); Calcium 9.1 mg/dL (8.6-10.3); EGFR African American 92.8 (>60); EGFR Non-African American 76.7 (>60); Globulin 3.1 g/dL (2-4); Potassium 4.3 mmol/L (3.5-5.0); Total Bilirubin 0.3 mg/dL (0.2-1.0); Total Protein 6.7 g/dL (6.4-8.9)
[2019-08-29 08:55] VITALS: BP 157/80
== END 2019-08-29 10:12 | disposition home or self-care (01) ==
LOC: ED 05:47
DX: J44.1 Chronic obstructive pulmonary disease with (acute) exacerbation (principal); R05 Cough; I10 Essential (primary) hypertension; K21.9 Gastro-esophageal reflux disease without esophagitis; F17.210 Nicotine dependence, cigarettes, uncomplicated
CPT/HCPCS: 36415; 71046; 80053; 83605; 84484; 85025; 86140; 93005; 99284; A9270-GY; J7512

== ENCOUNTER 2021-06-02 02:57 | Inpatient (IN) ==
[2021-06-02] MEDS ORDERED: Albuterol HFA INHALER 8 gm MDI INH ONE (03:29)
[2021-06-02] MEDS ORDERED: methylPREDNISolone 125 mg 2 ML VIAL IV ONE (03:29)
[2021-06-02 04:08] LABS: ABS Eosinophils 0.4 10^3/ul (0-0.6); ABS Lymphocytes 0.8 10^3/ul (1.0-4.8); ABS Monocytes 0.5 10^3/ul (0-0.8); ABS Neutrophils 4.4 10^3/ul (1.5-7.7); Eosinophil % 6.2 %; Hematocrit 42 % (35-47); Lymphocyte % 13.2 %; Mean Corpuscular HGB Conc 33 g/dL (31-36); Mean Corpuscular Hemoglobin 32 pg (27-31); Mean Corpuscular Volume 96 fL (80-97); Mean Platelet Volume 8.2 fL (7.4-10.4); Nucleated Red Blood Cells % 0.2; Platelet Count 240 10^3/uL (150-450); Red Blood Count 4.43 10^6 /uL (3.70-4.87); Red Cell Distribution Width 15 % (10-15); White Blood Count 6.2 10^3/uL (3.5-10.8)
[2021-06-02 04:20] LABS: Rapid COVID-19 Molecular Undetected (Undetected)
[2021-06-02 04:21] LABS: Influenza A Molecular Negative (Negative); Influenza B Molecular Negative (Negative)
[2021-06-02 05:03] LABS: Albumin 3.6 g/dL (3.2-5.2); Globulin 3.5 g/dL (2-4); Potassium 3.5 mmol/L (3.5-5.0); Total Bilirubin 0.3 mg/dL (0.2-1.0); Total Protein 7.1 g/dL (6.4-8.9)
[2021-06-02 05:06] LABS: Troponin I 0.01 ng/mL (<0.03)
[2021-06-02] MEDS: Enoxaparin 40 MG/0.4 ML SYR SUBCUT SCH (06:40)
[2021-06-02] MEDS ORDERED: methylPREDNISolone SOD 40 mg/ml 1 ml VIAL IV SCH (11:00)
[2021-06-02] MEDS: cefTRIAXone 1 gm/50 mL NS BAG 1 GM/50 ML BAG IVPB SCH (11:03)
[2021-06-02] MEDS: Azithromycin 500 mg/250 ml NS 500 MG/250 ML BAG IVPB SCH (12:29)
[2021-06-02] MEDS: Albuterol HFA INHALER 8 gm MDI INH SCH ×2 (12:30→21:44)
[2021-06-02] MEDS: Nicotine PATCH 21 MG/24 HR PATCH TRANSDERM SCH (12:44)
[2021-06-02] MEDS: oxyCODONE/Acetamin 5/325 mg TAB PO PRN ×2 (15:02→20:56)
[2021-06-03] MEDS: Albuterol HFA INHALER 8 gm MDI INH SCH ×4 (02:18→08:34)
[2021-06-03 05:41] LABS: ABS Lymphocytes 0.8 10^3/ul (1.0-4.8); ABS Monocytes 0.9 10^3/ul (0-0.8); ABS Neutrophils 12.1 10^3/ul (1.5-7.7); Hematocrit 43 % (35-47); Hemoglobin 14.4 g/dL (12.0-16.0); Lymphocyte % 5.7 %; Mean Corpuscular HGB Conc 34 g/dL (31-36); Mean Corpuscular Hemoglobin 32 pg (27-31); Mean Corpuscular Volume 95 fL (80-97); Mean Platelet Volume 8.4 fL (7.4-10.4); Platelet Count 244 10^3/uL (150-450); Red Blood Count 4.51 10^6 /uL (3.70-4.87); Red Cell Distribution Width 15 % (10-15); White Blood Count 13.8 10^3/uL (3.5-10.8)
[2021-06-03] MEDS: Enoxaparin 40 MG/0.4 ML SYR SUBCUT SCH (05:45)
[2021-06-03 06:11] LABS: Calcium 9.7 mg/dL (8.6-10.3)
[2021-06-03 06:15] LABS: Potassium 5.1 mmol/L (3.5-5.0)
[2021-06-03] MEDS ORDERED: Albuterol HFA INHALER 8 gm MDI INH PRN (08:38)
[2021-06-03] MEDS: Nicotine PATCH 21 MG/24 HR PATCH TRANSDERM SCH (08:55)
[2021-06-03] MEDS: Cholecalciferol (VIT D3) 1,000 unit TAB PO SCH (08:59)
[2021-06-03] MEDS: Multivitamins/Minerals TAB PO SCH (09:00)
[2021-06-03] MEDS ORDERED: VITAMIN E 200 UNIT PO SCH (09:00)
[2021-06-03] MEDS: methylPREDNISolone SOD 40 mg/ml 1 ml VIAL IV SCH (09:06)
[2021-06-03] MEDS: cefTRIAXone 1 gm/50 mL NS BAG 1 GM/50 ML BAG IVPB SCH (11:33)
[2021-06-03] MEDS: Azithromycin 500 mg/250 ml NS 500 MG/250 ML BAG IVPB SCH (12:41)
[2021-06-03] MEDS: oxyCODONE/Acetamin 5/325 mg TAB PO PRN (19:31)
[2021-06-04] MEDS: Enoxaparin 40 MG/0.4 ML SYR SUBCUT SCH (05:52)
[2021-06-04] MEDS: oxyCODONE/Acetamin 5/325 mg TAB PO PRN (09:02)
[2021-06-04] MEDS: Cholecalciferol (VIT D3) 1,000 unit TAB PO SCH (09:05)
[2021-06-04] MEDS: Multivitamins/Minerals TAB PO SCH (09:08)
[2021-06-04] MEDS: Nicotine PATCH 21 MG/24 HR PATCH TRANSDERM SCH (09:12)
[2021-06-04] MEDS: methylPREDNISolone SOD 40 mg/ml 1 ml VIAL IV SCH (09:14)
[2021-06-04 09:45] LABS: ABS Basophils 0.1 10^3/ul (0-0.2); ABS Lymphocytes 1.2 10^3/ul (1.0-4.8); ABS Monocytes 0.7 10^3/ul (0-0.8); ABS Neutrophils 9.4 10^3/ul (1.5-7.7); Eosinophil % 0.4 %; Hematocrit 42 % (35-47); Hemoglobin 14.3 g/dL (12.0-16.0); Lymphocyte % 10.2 %; Mean Corpuscular HGB Conc 34 g/dL (31-36); Mean Corpuscular Hemoglobin 32 pg (27-31); Mean Corpuscular Volume 94 fL (80-97); Mean Platelet Volume 7.9 fL (7.4-10.4); Platelet Count 232 10^3/uL (150-450); Red Blood Count 4.51 10^6 /uL (3.70-4.87); Red Cell Distribution Width 15 % (10-15); White Blood Count 11.4 10^3/uL (3.5-10.8)
[2021-06-04 10:07] LABS: Calcium 9.2 mg/dL (8.6-10.3); Potassium 3.7 mmol/L (3.5-5.0)
[2021-06-04] MEDS: cefTRIAXone 1 gm/50 mL NS BAG 1 GM/50 ML BAG IVPB SCH (11:50)
[2021-06-04] MEDS: Azithromycin 500 mg/250 ml NS 500 MG/250 ML BAG IVPB SCH (12:34)
[2021-06-04 13:07] VITALS: BP 121/71
== END 2021-06-04 14:45 | disposition home or self-care (01) | DRG 194 ==
LOC: ED 02:57 → SUATTDRO 05:30 → EDHOLD 05:30 → MED 13:27
PROVIDERS: ADMIT Internal Medicine; ATTEND Hospitalist

== ENCOUNTER 2022-06-02 03:18 | Observation (INO) ==
[2022-06-02] MEDS ORDERED: Albuterol HFA INHALER 8 gm MDI INH ONE (03:50)
[2022-06-02] MEDS ORDERED: methylPREDNISolone SOD SUCC 125 mg 2 ML VIAL IV ONE (03:51)
[2022-06-02 04:20] LABS: ABS Basophils 0.1 10^3/ul (0-0.2); ABS Eosinophils 0.4 10^3/ul (0-0.6); ABS Lymphocytes 0.6 10^3/ul (1.0-4.8); ABS Monocytes 0.8 10^3/ul (0-0.8); ABS Neutrophils 6.8 10^3/ul (1.5-7.7); Eosinophil % 4.9 %; Hematocrit 47 % (35-47); Lymphocyte % 7.1 %; Mean Corpuscular HGB Conc 32 g/dL (31-36); Mean Corpuscular Hemoglobin 31 pg (27-31); Mean Corpuscular Volume 95 fL (80-97); Mean Platelet Volume 8.3 fL (7.4-10.4); Nucleated Red Blood Cells % 0.1; Platelet Count 184 10^3/uL (150-450); Red Cell Distribution Width 16 % (10-15); White Blood Count 8.6 10^3/uL (3.5-10.8)
[2022-06-02 04:47] LABS: Albumin 3.6 g/dL (3.2-5.2); Albumin/Globulin Ratio 1.2 (1-3); Calcium 8.9 mg/dL (8.6-10.3); Globulin 3.1 g/dL (2-4); Potassium 4.1 mmol/L (3.5-5.0); Total Bilirubin 0.4 mg/dL (0.2-1.0); Total Protein 6.7 g/dL (6.4-8.9); eGFR CKD-EPI 77.4 (>60)
[2022-06-02] MEDS ORDERED: Ondansetron 4 mg VIAL 2 MG/ML 2 ml VIAL IV PRN (05:08)
[2022-06-02] MEDS ORDERED: Albuterol HFA INHALER 8 gm MDI INH PRN (05:11)
[2022-06-02] MEDS ORDERED: oxyCODONE/Acetamin 5/325 mg TAB PO PRN (05:26)
[2022-06-02] MEDS: Heparin 5000 UNITS/ML 1 mL VIAL SUBCUT SCH ×2 (05:52→14:46)
[2022-06-02] MEDS ORDERED: Fluticasone Propionate 1 PUFF/50 MCG DISKUS INH SCH (07:00)
[2022-06-02] MEDS ORDERED: Mometasone/Formoter 200/5 MDI INH SCH (07:00)
[2022-06-02] MEDS ORDERED: cefTRIAXone 1 gm/50 mL D5W 1 GM/50 ML BAG IV SCH (07:45)
[2022-06-02] MEDS ORDERED: DOXYcycline 100 MG in NS 0.9% 250 ml 250 ML IVPB SCH (08:00)
[2022-06-02] MEDS ORDERED: Nicotine PATCH 21 MG/24 HR PATCH TRANSDERM SCH (08:00)
[2022-06-02 08:13] LABS: C Reactive Protein 23.84 mg/L (<8.01)
[2022-06-02] MEDS ORDERED: SPIRIVA Respimat (tiotropium) 2.5 mcg/inh Inhaler INH SCH (09:00)
[2022-06-02] MEDS ORDERED: methylPREDNISolone SOD SUCC 40 mg/ml 1 ml VIAL IV SCH (14:00)
[2022-06-02] MEDS ORDERED: Iohexol 350 (CONTRAST) 500 ML MDV IV ONE (14:49)
[2022-06-02 16:57] VITALS: BP 146/77
== END 2022-06-02 17:03 | disposition home or self-care (01) ==
LOC: ED 03:18 → EDHOLD 03:18 → SUATTDRO 05:08 → EDHOLD 17:02
PROVIDERS: ADMIT Internal Medicine; ATTEND Internal Medicine

== ENCOUNTER 2023-03-05 14:07 | Inpatient (IN) ==
[2023-03-05] MEDS ORDERED: EPINEPHrine Anaphylaxis SYR CERTADOSE SYR KIT ONE (14:15)
[2023-03-05] MEDS ORDERED: Albuterol/Ipratropium NEB.SOL (2.5/0.5 MG) 3 ML NEB.SOLN ONE (14:17)
[2023-03-05] MEDS ORDERED: Lactated Ringers 1000 ml BAG 1,000 ML IV ONE (14:20)
[2023-03-05] MEDS ORDERED: Albuterol/Ipratropium NEB.SOL (2.5/0.5 MG) 3 ML NEB.SOLN INH ONE (14:29)
[2023-03-05 14:36] LABS: PO2 Arterial 117 mmHg (80-100)
[2023-03-05 14:37] LABS: PCO2 Arterial 76 mmHg (35-45)
[2023-03-05 14:42] LABS: ABS Eosinophils 0.2 10^3/uL (0.0-0.5); ABS Lymphocytes 1.3 10^3/uL (1.0-4.8); ABS Monocytes 0.2 10^3/uL (0.0-0.9); ABS Neutrophils 8.9 10^3/uL (1.5-7.6); ABS Nucleated RBC 0.03 10^3/ul; Eosinophil % 1.5 %; Hemoglobin 17.3 g/dL (11.5-14.3); Lymphocyte % 12.4 %; Mean Corpuscular Hemoglobin 32.1 pg (27-33); Mean Corpuscular Hgb Conc 33.2 g/dL (31-36); Mean Corpuscular Volume 96.8 fL (80-97); Mean Platelet Volume 8.8 fL (7.5-11.2); Nucleated Red Blood Cells % 0.2 /100 WBC (0.0-0.4); Platelet Count 219 10^3/uL (150-450); Red Blood Count 5.37 10^6/uL (3.63-4.92); White Blood Count 10.7 10^3/uL (3.8-11.8)
[2023-03-05 14:51] LABS: INR 1.05 (0.88-1.18)
[2023-03-05 15:07] LABS: Albumin 3.7 g/dL (3.2-5.2); C Reactive Protein 15.44 mg/L (<8.01); Calcium 8.9 mg/dL (8.6-10.3); Creatinine, Serum 0.9 mg/dL (0.51-0.95); Globulin 3.6 g/dL (2-4); Potassium 4.2 mmol/L (3.5-5.0); Total Bilirubin 0.5 mg/dL (0.2-1.0); Total Protein 7.3 g/dL (6.4-8.9); eGFR CKD-EPI 71.8 (>60)
[2023-03-05 15:46] LABS: PCO2 Arterial 51 mmHg (35-45); PO2 Arterial 96 mmHg (80-100)
[2023-03-05] MEDS ORDERED: oxyCODONE/Acetamin 10/325(NF) TAB PO PRN (18:37)
[2023-03-05] MEDS ORDERED: oxyCODONE/Acetamin 5/325 mg TAB PO PRN (19:24)
[2023-03-05 20:48] LABS: PCO2 Arterial 45 mmHg (35-45); PO2 Arterial 76 mmHg (80-100)
[2023-03-05] MEDS ORDERED: OLANZAPINE 7.5 MG PO SCH (21:00)
[2023-03-06 04:54] LABS: Blood Urea Nitrogen 20 mg/dL (6-24); CO2 Carbon Dioxide 26 mmol/L (22-32); Calcium 8.9 mg/dL (8.6-10.3); Chloride 103 mmol/L (101-111); Glucose 202 mg/dL (70-100); Sodium 137 mmol/L (135-145); eGFR CKD-EPI 82.7 (>60)
[2023-03-06 05:00] LABS: Anion Gap 8 mmol/L (2-16)
[2023-03-06 05:07] LABS: Hematocrit 39.9 % (35-45); Hemoglobin 13.6 g/dL (11.5-14.3); Mean Corpuscular Hemoglobin 31.8 pg (27-33); Mean Corpuscular Volume 93.7 fL (80-97); Mean Platelet Volume 8.9 fL (7.5-11.2); Platelet Count 170 10^3/uL (150-450); Red Blood Count 4.26 10^6/uL (3.63-4.92); Red Cell Distribution Width 14.8 % (12-17); White Blood Count 17.1 10^3/uL (3.8-11.8)
[2023-03-06 05:31] LABS: Magnesium 1.9 mg/dL (1.9-2.7)
[2023-03-06 05:40] LABS: Potassium Redraw 4.8 mmol/L (3.5-5.0)
[2023-03-06] MEDS ORDERED: ALPRAZOLAM 1 MG PO SCH ×2 (10:00→12:00)
[2023-03-06 14:41] VITALS: BP 138/71
== END 2023-03-06 15:30 | disposition home or self-care (01) | DRG 916 ==
LOC: ED 14:07 → EDHOLD 15:15 → ICU 16:45
PROVIDERS: ADMIT Student in an Organized Health Care Education/Training Program; ATTEND Student in an Organized Health Care Education/Training Program

== ENCOUNTER 2023-03-23 08:52 | Inpatient (IN) ==
[~2023-03-23 08:52] MED LIST changes: +APREPITANT 130 MG in Premix IV 0 ML IV SCH; -Acetaminophen TAB* 325 MG PO PRN; -Buffered Lidocaine 1% SYRIN* 1 ML/SYRINGE INTRADERM ONE; -Bupivacaine 0.5%* 50 ML MDV VIAL ONE; +CARBOPLATIN IVPB SCH; -Ketorolac INJ* 30 MG/ML 1 ML VIAL IV PRN; -Lactated Ringers 1000 ML Bag* 1,000 ML IV SCH; -Levalbuterol 1.25MG/0.5ML NEB ONE; -Lidocaine 2% PF * 5 ML VIAL ONE; -Midazolam* 1 MG/ML 2 ML VIAL (2 MG) ONE; +NS 0.9% IVPB SCH; -Naloxone* 0.4 MG/ML 1 ML VIAL IV PRN; -Ondansetron INJ* 2 MG/ML VIAL IV PRN; +PACLITAXEL PROTEIN BOUND IVPB SCH; -Propofol* 10 MG/ML 20 ML BTL ONE; -Propofol* 500 MG/50 ML BTL ONE; -ceFAZolin 2 GM in NS PREMIX(*) 2 GM/100 ML BAG IVPB ONE; -fentaNYL* 50 MCG/ML 2 ML VIAL (100 MCG VIAL) IV PRN; -oxyCODONE TAB* 5 MG TAB PO PRN
[2023-03-23 09:13] LABS: ABS Basophils 0.1 10^3/uL (0.0-0.1); ABS Eosinophils 0.1 10^3/uL (0.0-0.5); ABS Lymphocytes 0.6 10^3/uL (1.0-4.8); ABS Monocytes 0.6 10^3/uL (0.0-0.9); ABS Neutrophils 6.2 10^3/uL (1.5-7.6); ABS Nucleated RBC 0.01 10^3/ul; Eosinophil % 1.8 %; Hematocrit 41.4 % (35-45); Hemoglobin 14.1 g/dL (11.5-14.3); Lymphocyte % 8.3 %; Mean Corpuscular Hemoglobin 32.8 pg (27-33); Mean Corpuscular Hgb Conc 34.2 g/dL (31-36); Mean Platelet Volume 8.7 fL (7.5-11.2); Nucleated Red Blood Cells % 0.1 /100 WBC (0.0-0.4); Platelet Count 206 10^3/uL (150-450); Red Blood Count 4.31 10^6/uL (3.63-4.92); Red Cell Distribution Width 15.5 % (12-17); White Blood Count 7.7 10^3/uL (3.8-11.8)
[2023-03-23 09:31] LABS: Albumin 3.7 g/dL (3.2-5.2); Albumin/Globulin Ratio 1.2 (1-3); Creatinine, Serum 0.64 mg/dL (0.51-0.95); Globulin 3.2 g/dL (2-4); Potassium 4.1 mmol/L (3.5-5.0); Total Bilirubin 0.3 mg/dL (0.2-1.0); Total Protein 6.9 g/dL (6.4-8.9); eGFR CKD-EPI 99.2 (>60)
[2023-03-23] MEDS ORDERED: Naloxone Nasal Spray 4 MG/0.1 ML NASAL.SPR INTRANASAL PRN (09:34)
[2023-03-23] MEDS ORDERED: oxyCODONE/Acetamin 10/325(NF) TAB PO PRN (09:34)
[2023-03-23] MEDS ORDERED: Albuterol HFA INHALER 8 gm MDI INH PRN (11:35)
[2023-03-23] MEDS ORDERED: oxyCODONE/Acetamin 5/325 mg TAB PO PRN (11:56)
[2023-03-23] MEDS: Cholestyramine Resin 4 GM POWDER PO SCH ×2 (13:33→15:54)
[2023-03-23] MEDS ORDERED: Enoxaparin 40 MG/0.4 ML SYR SUBCUT SCH (14:00)
[2023-03-23] MEDS ORDERED: Dexamethasone IV 4 MG/ML VIAL 1 ml VIAL IV SLOW PU ONE (14:15)
[2023-03-23] MEDS ORDERED: PALONOSETRON HCL 0.05 MG/ML (0.25 MG) SYRINGE (0.05 MG/ML) IV ONE (14:15)
[2023-03-23] MEDS ORDERED: Famotidine IV 10 MG/ML 2 ml VIAL (20 mg) IV ONE (14:15)
[2023-03-23] MEDS: Albuterol 2.5mg/3 ml (0.083%) NEB.SOLN INH SCH ×3 (15:14→23:38)
[2023-03-23] MEDS ORDERED: APREPITANT 130 MG in Premix IV 0 ML IVPB ONE (16:00)
[2023-03-23] MEDS ORDERED: NS 0.9% IVPB ONE (16:15)
[2023-03-23] MEDS ORDERED: PACLITAXEL PROTEIN BOUND IVPB ONE (16:15)
[2023-03-23] MEDS ORDERED: CARBOPLATIN IVPB ONE (16:15)
[2023-03-23] MEDS: ALPRAZOLAM 1 MG PO SCH (20:18)
[2023-03-24] MEDS: Albuterol 2.5mg/3 ml (0.083%) NEB.SOLN INH SCH ×3 (03:13→11:15)
[2023-03-24 05:44] LABS: ABS Lymphocytes 0.3 10^3/uL (1.0-4.8); ABS Monocytes 0.1 10^3/uL (0.0-0.9); ABS Neutrophils 4.6 10^3/uL (1.5-7.6); Hematocrit 41.7 % (35-45); Hemoglobin 14.1 g/dL (11.5-14.3); Lymphocyte % 5.2 %; Mean Corpuscular Hemoglobin 32.5 pg (27-33); Mean Corpuscular Hgb Conc 33.9 g/dL (31-36); Mean Corpuscular Volume 95.9 fL (80-97); Mean Platelet Volume 8.7 fL (7.5-11.2); Nucleated Red Blood Cells % 0.1 /100 WBC (0.0-0.4); Platelet Count 182 10^3/uL (150-450); Red Blood Count 4.34 10^6/uL (3.63-4.92); Red Cell Distribution Width 14.6 % (12-17)
[2023-03-24 06:00] LABS: Albumin 3.6 g/dL (3.2-5.2); Albumin/Globulin Ratio 1.1 (1-3); Calcium 8.9 mg/dL (8.6-10.3); Creatinine, Serum 0.68 mg/dL (0.51-0.95); Globulin 3.3 g/dL (2-4); Potassium 4.1 mmol/L (3.5-5.0); Total Bilirubin 0.3 mg/dL (0.2-1.0); Total Protein 6.9 g/dL (6.4-8.9); eGFR CKD-EPI 97.8 (>60)
[2023-03-24] MEDS: Cholestyramine Resin 4 GM POWDER PO SCH (07:54)
[2023-03-24] MEDS: ALPRAZOLAM 1 MG PO SCH (07:54)
[2023-03-24 09:43] VITALS: BP 118/63
== END 2023-03-24 11:30 | disposition home or self-care (01) | DRG 756 ==
LOC: MED 08:52 → CHOA 08:52 → OBSVTOIN 11:24
PROVIDERS: ADMIT Nurse Practitioner Family; ATTEND Internal Medicine Medical Oncology